=== PATIENT | female | born 1940 | race African-American/Black ===

== ENCOUNTER 2017-11-17 09:46 | Inpatient (IN) | payer BC ==
[2017-11-17] VITALS (8 sets, daily range): BP systolic 120–145; BP diastolic 55–88
[~2017-11-17] VITALS: Ht 175.3 cm; Wt 77.1 kg
[~2017-11-17 09:46] MED LIST: CIPROFLOXACIN500 M2 ORAL; NKM; TYLENOL325 MG ORAL
[2017-11-17] MEDS ORDERED: MULTIVITAMINS1 EAC2 ORAL (10:11)
[2017-11-17 10:41] LABS: APPEARANCE,URINE CLEAR; BILIRUBIN, URINE NEGATIVE (NEGATIVE); GLUCOSE, URINE (UA) NEGATIVE (NEGATIVE); KETONES,URINE 3+ (NEGATIVE); LEUKOCYTE ESTERASE ,URINE 3+ (NEGATIVE); NITRITE,URINE NEGATIVE (NEGATIVE); PH,URINE 6 (4.5-8.0); PROTEIN,URINE 1+ (NEGATIVE); UROBILINOGEN,URINE 1 MG/DL (0.0-1.0)
[2017-11-17 10:50] LABS: COLOR,URINE YELLOW
[2017-11-17 11:00] LABS: HEMATOCRIT 36.9 % (37.0-47.0); HEMOGLOBIN 11.4 G/DL (12.0-16.0); MEAN CORPUSCULAR VOLUME 88 FL (80-99); PLATELET COUNT 24 K/UL (150-450); RED BLOOD COUNT 4.18 M/UL (4.20-5.40); RED CELL DISTRIBUTION WIDTH 13.4 % (11.6-14.8); WHITE BLOOD COUNT 8.8 K/UL (4.8-10.8)
[2017-11-17 11:16] LABS: ANION GAP 10 mmol/L (5-15); BLOOD UREA NITROGEN 11 mg/dL (7-18); CALCIUM 9.4 MG/DL (8.5-10.1); CARBON DIOXIDE 27 MMOL/L (21-32); CHLORIDE 102 MMOL/L (98-107); CREATININE 0.8 MG/DL (0.55-1.30); POTASSIUM 4.3 MMOL/L (3.5-5.1); SODIUM 139 MMOL/L (136-145)
[2017-11-17 11:21] LABS: ALANINE AMINOTRANSFERASE 13 U/L (12-78); ALBUMIN 3.7 G/DL (3.4-5.0); ALBUMIN/GLOBULIN RATIO 1.1 (1.0-2.7); ALKALINE PHOSPHATASE 45 U/L (46-116); ASPARTATE AMINO TRANSFERASE 19 U/L (15-37); BILIRUBIN,TOTAL 0.5 MG/DL (0.2-1.0)
[2017-11-17] MEDS ORDERED: cefTRIAXone 1 GM in NS 55 ML IVPB ONE (12:00)
--- NOTE | 2017-11-17 12:34 | Diagnostic Imaging Report ---
Indication: Upper abdominal pain and vomiting since yesterday Technique: Spiral acquisitions obtained through the abdomen and pelvis. No oral contrast utilized, per emergency room physician request. No IV contrast utilized, per emergency room physician request.. Multiplanar reconstructions were generated. Total dose length product 723.02 mGycm. CTDIvol(s) 14.56 mGy. Dose reduction achieved using automated exposure control Comparison: None Findings: Lack of enteric contrast limits assessment of the GI tract. There are dilated fluid-filled mid to distal small bowel loops. There is nondilated terminal and distal ileum. Transition point is not definitely delineated but likely in the right or mid to lower pelvis. More proximal small bowel loops are more variably dilated. The distal esophagus and stomach, duodenum are unremarkable. The appendix is normal. No definite evidence of diverticulosis or diverticulitis. No colonic distention. No free or loculated intraperitoneal air or fluid is evident. There is diastasis of the rectus abdominis tendon without mayi herniation. Lack of IV contrast limits assessment of the solid organs. The liver demonstrates multiple cysts as well as multiple low-attenuation lesions which are too small to characterize. The gallbladder, bile ducts, pancreas, spleen, adrenals, kidneys are all grossly unremarkable. No retroperitoneal or mesenteric mass or adenopathy. No pelvic mass or adenopathy. The uterus is not definitely visualized, likely surgically absent There is mild thoracolumbar scoliotic deformity there are degenerative spondylosis changes. Linear opacities at the lung bases likely indicate atelectasis or scarring. Impression: Dilated fluid-filled mid and distal small bowel, with normal caliber distal ileum and likely abrupt transition. Findings are suspicious for small bowel obstruction. Less likely, findings could also represent an atypical manifestation of ileus or enteritis. Correlate with clinical findings, consider follow-up imaging as indicated Multiple hepatic cysts as well as multiple hepatic low-attenuation lesions which are too small to characterize, most likely benign simple cysts or bile hamartomas. No further follow-up necessary Other findings as described, including diastasis of the rectus abdominis tendon, cortical lumbar scoliosis, degenerative spondylosis, basilar pulmonary parenchymal atelectasis and/or scarring, likely surgically absent uterus Critical value findings phoned to Dr. North in the emergency room at the time of interpretation The CT scanner at [facility] is accredited by the [employer] and the scans are performed using protocols designed to limit radiation exposure to as low as reasonably achievable to attain images of sufficient resolution adequate for diagnostic evaluation.
--- NOTE | 2017-11-17 13:06 | Emergency Room Report ---
History of Present Illness General Chief Complaint: Abdominal Pain Source: Patient Present Illness HPI Patient is a 69-year-old female presented after increased epigastric pain. Patient gradual onset of symptoms. Patient reports having episodes of nausea and vomiting. She denied hematemesis or bloody stools. The patient states that she had been having increased difficulty with bowel movements. She stated she had a normal bowel movement yesterday. But had been fairly regularly constipated. She reports having increased epigastric pain. Patient states that she did not have any medical conditions and does not take any medications other than Excedrin. Allergies: Coded Allergies: No Known Allergies (Unverified , 06/20/14) Patient History Past Medical History: see triage record Reviewed Nursing Documentation: PMH: Agreed, PSxH: Agreed Nursing Documentation-PMH Past Medical History: No Stated History Review of Systems All Other Systems: negative except mentioned in HPI Physical Exam Vital Signs Date Time Temp Pulse Resp B/P (MAP) Pulse Ox O2 Delivery O2 Flow Rate FiO2 11/17/17 09:58 97.3 78 14 134/74 100 Room Air Sp02 EP Interpretation: reviewed, normal General Appearance: normal inspection, well appearing, no apparent distress, alert, GCS 15 Head: atraumatic ENT: normal ENT inspection, hearing grossly normal, normal voice Neck: normal inspection, full range of motion, supple, no bony tend Respiratory: normal inspection, lungs clear, normal breath sounds, no respiratory distress, no retraction, no wheezing Cardiovascular #1: regular rate, rhythm, no edema Gastrointestinal: non tender, soft, no guarding, no hernia, tenderness - epigastric Genitourinary: no CVA tenderness Musculoskeletal: normal inspection, back normal, normal range of motion Neurologic: normal inspection, alert, oriented x3, responsive, speech normal Psychiatric: normal inspection, judgement/insight normal, mood/affect normal Skin: normal inspection, normal color, no rash Medical Decision Making Diagnostic Impression: Primary Impression: Abdominal pain Additional Impression: Small bowel obstruction ER Course Patient presented for abdominal pain. Differential diagnoses included ischemic bowel, appendicitis, perforated viscus, abdominal aortic aneurysm, inferior myocardial infarction, viral gastroenteritis Because of complexity of patient's case laboratory testing and imaging studies were ordered. Laboratory testing was notable for markedly thrombocytopenia. Patient was given IV antibiotics for her urinary infection. CT the head and pelvis read by radiology showed Dilated fluid-filled mid and distal small bowel, with normal caliber distal ileum and likely abrupt transition. Findings are suspicious for small bowel obstruction. Less likely, findings could also represent an atypical manifestation of ileus or enteritis. Correlate with clinical findings, consider follow-up imaging as indicated Multiple hepatic cysts as well as multiple hepatic low-attenuation lesions which are too small to characterize, most likely benign simple cysts or bile hamartomas. No further follow-up necessary Other findings as described, including diastasis of the rectus abdominis tendon, cortical lumbar scoliosis, degenerative spondylosis, basilar pulmonary parenchymal atelectasis and/or scarring, likely surgically absent uterus The patient noted be thrombocytopenic. Patient was given IV acid blockers. Patient stated that she did not want any narcotic pain medication. The patient was given IV antibiotics for urinary infection. Dr. Bakari Causey was contacted for inpatient managmenet due to capitated physician. Dr. Eli was contacted for surgical consult. Labs Test 11/17/17 10:23 11/17/17 10:34 Urine Color Yellow Urine Appearance Clear Urine pH 6 (4.5-8.0) Urine Specific [place] 1.020 (1.005-1.035) Urine Protein 1+ (NEGATIVE) Urine Glucose (UA) Negative (NEGATIVE) Urine Ketones 3+ (NEGATIVE) Urine Occult Blood Negative (NEGATIVE) Urine Nitrite Negative (NEGATIVE) Urine Bilirubin Negative (NEGATIVE) Urine Urobilinogen 1 MG/DL (0.0-1.0) Urine Leukocyte Esterase 3+ (NEGATIVE) Urine RBC 0-2 /HPF (0 - 2) Urine WBC 5-10 /HPF (0 - 2) Urine Squamous Epithelial Cells Few /LPF (NONE/OCC) Urine Bacteria Few /HPF (NONE) Urine Mucus Few /LPF (NONE/OCC) White Blood Count 8.8 K/UL (4.8-10.8) Red Blood Count 4.18 M/UL (4.20-5.40) Hemoglobin 11.4 G/DL (12.0-16.0) Hematocrit 36.9 % (37.0-47.0) Mean Corpuscular Volume 88 FL (80-99) Mean Corpuscular Hemoglobin 27.3 PG (27.0-31.0) Mean Corpuscular Hemoglobin Concent 30.9 G/DL (32.0-36.0) Red Cell Distribution Width 13.4 % (11.6-14.8) Platelet Count 24 K/UL (150-450) Mean Platelet Volume 11.2 FL (6.5-10.1) Neutrophils (%) (Auto) % (45.0-75.0) Lymphocytes (%) (Auto) % (20.0-45.0) Monocytes (%) (Auto) % (1.0-10.0) Eosinophils (%) (Auto) % (0.0-3.0) Basophils (%) (Auto) % (0.0-2.0) Differential Total Cells Counted 100 Neutrophils % (Manual) 74 % (45-75) Lymphocytes % (Manual) 22 % (20-45) Monocytes % (Manual) 4 % (1-10) Eosinophils % (Manual) 0 % (0-3) Basophils % (Manual) 0 % (0-2) Band Neutrophils 0 % (0-8) Platelet Estimate Decreased Platelet Morphology Normal Hypochromasia 1+ Prothrombin Time 10.7 SEC (9.30-11.50) Prothromb Time International Ratio 1.0 (0.9-1.1) Activated Partial Thromboplast Time 23 SEC (23-33) Sodium Level 139 MMOL/L (136-145) Potassium Level 4.3 MMOL/L (3.5-5.1) Chloride Level 102 MMOL/L (98-107) Carbon Dioxide Level 27 MMOL/L (21-32) Anion Gap 10 mmol/L (5-15) Blood Urea Nitrogen 11 mg/dL (7-18) Creatinine 0.8 MG/DL (0.55-1.30) Estimat Glomerular Filtration Rate mL/min (>60) Glucose Level 130 MG/DL (74-106) Calcium Level 9.4 MG/DL (8.5-10.1) Total Bilirubin 0.5 MG/DL (0.2-1.0) Aspartate Amino Transf (AST/SGOT) 19 U/L (15-37) Alanine Aminotransferase (ALT/SGPT) 13 U/L (12-78) Alkaline Phosphatase 45 U/L (46-116) Total Protein 7.2 G/DL (6.4-8.2) Albumin 3.7 G/DL (3.4-5.0) Globulin 3.5 g/dL Albumin/Globulin Ratio 1.1 (1.0-2.7) Lipase 76 U/L (73-393) Last Vital Signs Date Time Temp Pulse Resp B/P (MAP) Pulse Ox O2 Delivery O2 Flow Rate FiO2 11/17/17 11:15 69 14 136/66 100 Room Air 11/17/17 10:16 98.1 Status: unchanged Disposition: ADMITTED INPATIENT Condition: Serious Referrals: ARLIN SIN (PCP) [place] Nov 17, 2017 13:06
[2017-11-17] MEDS ORDERED: Morphine Sulfate 2mg/ml Inj IVP ONE (13:15)
[2017-11-17] MEDS ORDERED: DiphenhydrAMINE 50mg/ml Inj IVP ONE (13:30)
[2017-11-17] MEDS ORDERED: Tubing IV Secondary IV ONE (13:31)
[2017-11-17] MEDS ORDERED: NS 500ML ONE (13:31)
[2017-11-17] MEDS: D5 1/2NS w/KCl 20mEq 1,000 ML IV SCH (14:30)
--- NOTE | 2017-11-17 14:54 | GI Initial Consult Note ---
Donna Jose N.PDarrin 11/17/17 1454: History of Present Illness General Date patient seen: Nov 17, 2017 Time patient seen: 14:53 Reason for Hospitalization: Abdominal Pain Reason for Consultation: SBO Present Illness HPI Patient is a 69-year-old female presented after increased epigastric pain. Patient gradual onset of symptoms. Patient reports having episodes of nausea and vomiting. She denied hematemesis or bloody stools. The patient states that she had been having increased difficulty with bowel movements. She stated she had a normal bowel movement yesterday. But had been fairly regularly constipated. She reports having increased epigastric pain. Patient states that she did not have any medical conditions and does not take any medications other than Excedrin. GI consulted for noted dilated SB loops on CT r/o SBO. HPI noted above. Pt seen in ED, awake A&Ox4 NAD with no active s/sx of N/V/D. Daughter at bedside. NPO with IVF's. Epigastric pain 7/10 at this time. Per patient has history of constipation, but pain became extremely severe last night. States she' has been passing gas, but has had less frequent or none after her immense pain. No BM or flatus noted since. CT AP reviewed. Pt also presents with anemia. Unknown history of endoscopy / colonoscopies. Home Meds Active Scripts Acetaminophen (Tylenol) 325 Mg Tab, 650 MG ORAL Q6H Y for For Pain, #30 TAB 0 Refills Prov:GUS RODRIGUEZ M.D. 07/21/14 Ciprofloxacin Hcl* (CIPROFLOXACIN HCL*) 500 Mg Tablet, 500 MG ORAL Q12H for 10 Days, TAB Prov:GUS RODRIGUEZ M.D. 07/21/14 Reported Medications Multivitamins* (MULTIVITAMINS*) 1 Each Tablet, 1 TAB ORAL DAILY, TAB 0 Refills 11/17/17 No Known Medications* (NKM - No Known Medications*) ., 0 ., 0 Refills 07/21/14 Med list reviewed/reconciled: Yes Allergies: Coded Allergies: No Known Allergies (Unverified , 06/20/14) Patient History History Provided By: Patient, Medical Record [facility] Narrative Past Medical History: No Stated History Social History: Denies: smoking, alcohol use, drug use, other Review of Systems All Other Systems: negative except mentioned in HPI Physical Exam Vital Signs Date Time Temp Pulse Resp B/P (MAP) Pulse Ox O2 Delivery O2 Flow Rate FiO2 11/17/17 09:58 97.3 78 14 134/74 100 Room Air Sp02 EP Interpretation: reviewed, normal Labs Laboratory Tests Test 11/17/17 10:23 11/17/17 10:34 Urine Color Yellow Urine Appearance Clear Urine pH 6 (4.5-8.0) Urine Specific [place] 1.020 (1.005-1.035) Urine Protein 1+ (NEGATIVE) H Urine Glucose (UA) Negative (NEGATIVE) Urine Ketones 3+ (NEGATIVE) H Urine Occult Blood Negative (NEGATIVE) Urine Nitrite Negative (NEGATIVE) Urine Bilirubin Negative (NEGATIVE) Urine Urobilinogen 1 MG/DL (0.0-1.0) H Urine Leukocyte Esterase 3+ (NEGATIVE) H Urine RBC 0-2 /HPF (0 - 2) Urine WBC 5-10 /HPF (0 - 2) H Urine Squamous Epithelial Cells Few /LPF (NONE/OCC) Urine Bacteria Few /HPF (NONE) Urine Mucus Few /LPF (NONE/OCC) H White Blood Count 8.8 K/UL (4.8-10.8) Red Blood Count 4.18 M/UL (4.20-5.40) L Hemoglobin 11.4 G/DL (12.0-16.0) L Hematocrit 36.9 % (37.0-47.0) L Mean Corpuscular Volume 88 FL (80-99) Mean Corpuscular Hemoglobin 27.3 PG (27.0-31.0) Mean Corpuscular Hemoglobin Concent 30.9 G/DL (32.0-36.0) L Red Cell Distribution Width 13.4 % (11.6-14.8) Platelet Count 24 K/UL (150-450) L Mean Platelet Volume 11.2 FL (6.5-10.1) H Neutrophils (%) (Auto) % (45.0-75.0) Lymphocytes (%) (Auto) % (20.0-45.0) Monocytes (%) (Auto) % (1.0-10.0) Eosinophils (%) (Auto) % (0.0-3.0) Basophils (%) (Auto) % (0.0-2.0) Differential Total Cells Counted 100 Neutrophils % (Manual) 74 % (45-75) Lymphocytes % (Manual) 22 % (20-45) Monocytes % (Manual) 4 % (1-10) Eosinophils % (Manual) 0 % (0-3) Basophils % (Manual) 0 % (0-2) Band Neutrophils 0 % (0-8) Platelet Estimate Decreased L Platelet Morphology Normal Hypochromasia 1+ Prothrombin Time 10.7 SEC (9.30-11.50) Prothromb Time International Ratio 1.0 (0.9-1.1) Activated Partial Thromboplast Time 23 SEC (23-33) Sodium Level 139 MMOL/L (136-145) Potassium Level 4.3 MMOL/L (3.5-5.1) Chloride Level 102 MMOL/L (98-107) Carbon Dioxide Level 27 MMOL/L (21-32) Anion Gap 10 mmol/L (5-15) Blood Urea Nitrogen 11 mg/dL (7-18) Creatinine 0.8 MG/DL (0.55-1.30) Estimat Glomerular Filtration Rate mL/min (>60) Glucose Level 130 MG/DL (74-106) H Calcium Level 9.4 MG/DL (8.5-10.1) Total Bilirubin 0.5 MG/DL (0.2-1.0) Aspartate Amino Transf (AST/SGOT) 19 U/L (15-37) Alanine Aminotransferase (ALT/SGPT) 13 U/L (12-78) Alkaline Phosphatase 45 U/L (46-116) L Total Protein 7.2 G/DL (6.4-8.2) Albumin 3.7 G/DL (3.4-5.0) Globulin 3.5 g/dL Albumin/Globulin Ratio 1.1 (1.0-2.7) Lipase 76 U/L (73-393) General Appearance: well appearing, no apparent distress, alert, thin Head: normocephalic EENT: PERRL/EOMI, normal ENT inspection Neck: supple Respiratory: normal breath sounds, no respiratory distress Cardiovascular: normal rate Gastrointestinal: non tender, soft, other - tympanic upper abdomen. Hypobowel sounds. Rectal: deferred Genitourinary: no CVA tenderness Musculoskeletal: normal inspection, back normal Neurologic: normal inspection, alert, oriented x3, responsive Psychiatric: normal inspection, judgement/insight normal, memory normal Skin: normal inspection, normal color, no rash, warm/dry, palpation normal, well hydrated Lymphatic: normal inspection, no adenopathy Current Medications Current Medications Medications (Trade) Dose Ordered Sig/Fanny Route PRN Reason Start Time Stop Time Status Last Admin Dose Admin Dextrose/ Electrolytes 1,000 ml @ 100 mls/hr Q10H IV 11/17/17 14:00 12/17/17 13:59 11/17/17 14:30 GI: Plan Problems: (1) Anemia (2) Dehydration (3) Small bowel obstruction (4) Abdominal pain Plan trial of non operative management, ex lap if fails. maintain NPO + IVFs bowel decompression >> NGT to LIS pain mgmt serial monitoring repeat imaging prn abx anemia work up OB stool r/o GI bleed monitor H&H, prn transfusions bowel regime ppi fu labs Discussed with Dr. Simpson. Thank you for this patient referral, we will follow. LOUIS SIMPSON 11/22/17 1359: History of Present Illness General Reason for Hospitalization: Abdominal Pain Present Illness Home Meds Active Scripts Acetaminophen (Tylenol) 325 Mg Tab, 650 MG ORAL Q6H Y for For Pain, #30 TAB 0 Refills Prov:GUS RODRIGUEZ M.D. 07/21/14 Ciprofloxacin Hcl* (CIPROFLOXACIN HCL*) 500 Mg Tablet, 500 MG ORAL Q12H for 10 Days, TAB Prov:GUS RODRIGUEZ M.D. 07/21/14 Reported Medications Multivitamins* (MULTIVITAMINS*) 1 Each Tablet, 1 TAB ORAL DAILY, TAB 0 Refills 11/17/17 No Known Medications* (NKM - No Known Medications*) ., 0 ., 0 Refills 07/21/14 Allergies: Coded Allergies: No Known Allergies (Unverified , 06/20/14) GI: Plan Plan The patient was seen and examined at bedside and all new and available data was reviewed in the patients chart. I agree with the above findings, impression and plan. (Patient seen earlier today. Signature stamp does not reflect patient encounter time.). - MD Rebeca Coleman Anh John N.P. Nov 17, 2017 14:54 LOUIS SIMPSON Nov 22, 2017 13:59
[2017-11-17] MEDS: Morphine Sulfate 2mg/ml Inj IVP PRN ×2 (17:17→20:39)
--- NOTE | 2017-11-17 17:22 | Consultation ---
History of Present Illness General Date patient seen: Nov 17, 2017 Chief Complaint: Abdominal Pain Reason for Consultation: SBO Present Illness HPI 77F otherwise healthy presented with 1 day acute onset of epigastric abdominal pain with associated nausea and emesis. states that she was well until yesterday evening when she developed cramping 8/10 epigastric pain. pain persisted and she developed nausea followed by non bloody emesis. cannot recall last flatus but believes last BM yesterday. pain without radiation. came to ED for medical evaluation. states she does not have a primary doctor and does not usually visit a physician for check ups. 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 last colonoscopy 10 years ago and believes she has polyps removed. had fibroid surgery 30+ years ago. no prior similar episodes. Allergies: Coded Allergies: No Known Allergies (Unverified , 06/20/14) Medication History Scheduled Ciprofloxacin Hcl* (Ciprofloxacin Hcl*), 500 MG ORAL Q12H Multivitamins* (Multivitamins*), 1 TAB ORAL DAILY, (Reported) No Known Medications* (NKM - No Known Medications*), 0 ., (Reported) Scheduled PRN Acetaminophen (Tylenol), 650 MG ORAL Q6H PRN for For Pain Patient History History Provided By: Patient, Family Member Healthcare decision maker Resuscitation status Advanced Directive on File Past Medical/Surgical History Past Medical/Surgical History: (1) Dizziness (2) Dizziness (3) Cystitis (4) Cystitis (5) Small bowel obstruction (6) Abdominal pain (7) Dehydration (8) Anemia Review of Systems Constitutional: Denies: no symptoms, see HPI, chills, sweats, fever, malaise, weakness, other Eye: Denies: no symptoms, see HPI, eye pain, blurred vision, tearing, double vision, nose pain, nose congestion, acuity changes, discharge, other ENT: Denies: no symptoms, see HPI, ear pain, ear discharge, nose pain, nose congestion, throat pain, throat swelling, mouth pain, hearing loss, nasal discharge, other Respiratory: Denies: no symptoms, see HPI, cough, orthopnea, shortness of breath, stridor, wheezing, LUNA, sputum, other Cardiovascular: Denies: no symptoms, see HPI, chest pain, edema, palpitations, syncope, PND, other Gastrointestinal: Reports: abdominal pain, nausea, vomiting Genitourinary: Denies: no symptoms, see HPI, discharge, dysuria, frequency, hematuria, pain, retention, incontinence, urgency, vag bleed/dc, other Musculoskeletal: Denies: no symptoms, see HPI, back pain, gout, joint pain, joint swelling, muscle pain, muscle stiffness, other Skin: Denies: no symptoms, see HPI, rash, change in color, change in hair/nails , dryness, lesions, other Psychiatric: Denies: no symptoms, see HPI, prior hx, anxiety, depressed feelings, emotional problems, SI, HI, hallucinations, other Neurological: Denies: no symptoms, see HPI, headache, numbness, paresthesia, seizure, tingling, tremors, focal weakness, syncope, dizziness, other Endocrine: Denies: no symptoms, see HPI, excessive sweating, flushing, intolerance to temperature, increased thirst, increased urine, unexplained weight loss, other Hematologic/Lymphatic: Denies: no symptoms, see HPI, anemia, blood clots, easy bleeding, easy bruising, swollen glands, diathesis, other Physical Exam General Appearance: no apparent distress, alert Lines, tubes and drains: peripheral HEENT: normocephalic, atraumatic, mucous membranes moist Neck: normal inspection Respiratory/Chest: normal breath sounds, no respiratory distress, no accessory muscle use Cardiovascular/Chest: normal peripheral pulses, normal rate, regular rhythm Abdomen: soft, no organomegaly, no mass, hypoactive bowel sounds, distended, tender, other - no rebound, no guarding, distended. Extremities: normal range of motion Skin Exam: normal pigmentation Neurologic: alert, oriented x 3, responsive Last 24 Hour Vital Signs Date Time Temp Pulse Resp B/P (MAP) Pulse Ox O2 Delivery O2 Flow Rate FiO2 11/17/17 14:48 98.1 60 13 132/55 100 Room Air 11/17/17 13:00 98.3 63 14 145/58 100 Room Air 11/17/17 11:15 69 14 136/66 100 Room Air 11/17/17 10:16 98.1 72 15 135/63 100 Room Air 11/17/17 09:58 97.3 78 14 134/74 100 Room Air Laboratory Tests Test 11/17/17 10:23 11/17/17 10:34 Urine Color Yellow Urine Appearance Clear Urine pH 6 (4.5-8.0) Urine Specific [place] 1.020 (1.005-1.035) Urine Protein 1+ (NEGATIVE) H Urine Glucose (UA) Negative (NEGATIVE) Urine Ketones 3+ (NEGATIVE) H Urine Occult Blood Negative (NEGATIVE) Urine Nitrite Negative (NEGATIVE) Urine Bilirubin Negative (NEGATIVE) Urine Urobilinogen 1 MG/DL (0.0-1.0) H Urine Leukocyte Esterase 3+ (NEGATIVE) H Urine RBC 0-2 /HPF (0 - 2) Urine WBC 5-10 /HPF (0 - 2) H Urine Squamous Epithelial Cells Few /LPF (NONE/OCC) Urine Bacteria Few /HPF (NONE) Urine Mucus Few /LPF (NONE/OCC) H White Blood Count 8.8 K/UL (4.8-10.8) Red Blood Count 4.18 M/UL (4.20-5.40) L Hemoglobin 11.4 G/DL (12.0-16.0) L Hematocrit 36.9 % (37.0-47.0) L Mean Corpuscular Volume 88 FL (80-99) Mean Corpuscular Hemoglobin 27.3 PG (27.0-31.0) Mean Corpuscular Hemoglobin Concent 30.9 G/DL (32.0-36.0) L Red Cell Distribution Width 13.4 % (11.6-14.8) Platelet Count 24 K/UL (150-450) L Mean Platelet Volume 11.2 FL (6.5-10.1) H Neutrophils (%) (Auto) % (45.0-75.0) Lymphocytes (%) (Auto) % (20.0-45.0) Monocytes (%) (Auto) % (1.0-10.0) Eosinophils (%) (Auto) % (0.0-3.0) Basophils (%) (Auto) % (0.0-2.0) Differential Total Cells Counted 100 Neutrophils % (Manual) 74 % (45-75) Lymphocytes % (Manual) 22 % (20-45) Monocytes % (Manual) 4 % (1-10) Eosinophils % (Manual) 0 % (0-3) Basophils % (Manual) 0 % (0-2) Band Neutrophils 0 % (0-8) Platelet Estimate Decreased L Platelet Morphology Normal Hypochromasia 1+ Prothrombin Time 10.7 SEC (9.30-11.50) Prothromb Time International Ratio 1.0 (0.9-1.1) Activated Partial Thromboplast Time 23 SEC (23-33) Sodium Level 139 MMOL/L (136-145) Potassium Level 4.3 MMOL/L (3.5-5.1) Chloride Level 102 MMOL/L (98-107) Carbon Dioxide Level 27 MMOL/L (21-32) Anion Gap 10 mmol/L (5-15) Blood Urea Nitrogen 11 mg/dL (7-18) Creatinine 0.8 MG/DL (0.55-1.30) Estimat Glomerular Filtration Rate mL/min (>60) Glucose Level 130 MG/DL (74-106) H Calcium Level 9.4 MG/DL (8.5-10.1) Total Bilirubin 0.5 MG/DL (0.2-1.0) Aspartate Amino Transf (AST/SGOT) 19 U/L (15-37) Alanine Aminotransferase (ALT/SGPT) 13 U/L (12-78) Alkaline Phosphatase 45 U/L (46-116) L Total Protein 7.2 G/DL (6.4-8.2) Albumin 3.7 G/DL (3.4-5.0) Globulin 3.5 g/dL Albumin/Globulin Ratio 1.1 (1.0-2.7) Lipase 76 U/L (73-393) Height (Feet): 5 Height (Inches): 9.00 Weight (Pounds): 170 Medications Current Medications Medications (Trade) Dose Ordered Sig/Fanny Route PRN Reason Start Time Stop Time Status Last Admin Dose Admin Dextrose/ Electrolytes 1,000 ml @ 100 mls/hr Q10H IV 11/17/17 14:00 12/17/17 13:59 11/17/17 14:30 Morphine Sulfate (Morphine Sulfate) 2 mg Q3H PRN IVP For Pain 11/17/17 16:30 11/24/17 16:29 Assessment/Plan Problem List: (1) Small bowel obstruction Assessment & Plan: 77F with 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 CT with transition point in pelvis. Afebrile, HD stable, labs okay, exam with distention but no acute abdomen. -Recommend admission for conservative management of SBO -NPO -IV fluids -NG tube to low intermittent suction -serial abdominal exams -AM KUB -patient and daughter state that they may want to leave AMA to go home and work with their homeopathic practitioner to resolve this. I explained to them findings and care plan. I highly advise against this and recommend her to be monitored in the hospital until return of bowel function. if does not improve or resolve with conservative management, will need surgery! ICD Codes: K56.609 - Unspecified intestinal obstruction, unspecified as to partial versus complete obstruction SNOMED: [id number] Status: stable Jose Eli Nov 17, 2017 17:22
[2017-11-18] VITALS (17 sets, daily range): BP systolic 99–134; BP diastolic 50–86
[2017-11-18] MEDS: D5 1/2NS w/KCl 20mEq 1,000 ML IV SCH ×5 (02:02→22:00)
--- NOTE | 2017-11-18 02:30 | History and Physical Report ---
DATE OF ADMISSION: 11/17/2017 HISTORY OF PRESENT ILLNESS: This is a 77-year-old female, who came to the hospital with abdominal pain, nausea, and emesis. She yesterday when she had epigastric pain. She had nausea as well as emesis. She cannot recall the last time she had a bowel movement. She came to the hospital. Approximately 10 years ago, the patient has previously had fibroid surgery. MEDICATIONS: Present medications include Cipro, multivitamins, and Tylenol. PAST MEDICAL HISTORY: Unremarkable. FAMILY HISTORY: Noncontributory. REVIEW OF SYSTEMS: Denies any headaches, hematemesis, melena, hematochezia, or weight loss. SOCIAL HISTORY: Denies alcohol or tobacco usage. PHYSICAL EXAMINATION: GENERAL: Examination reveals a 77-year-old female. HEENT: Unremarkable. LUNGS: Clear breath sounds bilaterally. CARDIAC: Normal heart sounds. ABDOMEN: Soft. EXTREMITIES: There is no edema. NEUROLOGIC: Nonfocal. LABORATORY AND DIAGNOSTIC DATA: Lab testing is unremarkable except for the platelet count of 24,000, the patient states this is longstanding. Coags are negative. Hematology as discussed above. Chemistries are normal. Urinalysis negative. Imaging studies show evidence of partial SBO on abdominal/pelvic CT. IMPRESSION: 1. Thrombocytopenia, likely chronic. 2. Partial small bowel obstruction. 3. Multiple hepatic cysts. After discussion, the patient has been seen by Surgery as well as GI. Plans noted for conservative management. 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 Consider Hematology evaluation. We will start IV fluids. NG tube to low-intermittent suction. DVT prophylaxis. Consider antibiotics, we will defer at this time. We will follow carefully. I have also discussed with the patient wanted to leave AMA, which I have advised against. Bakari Causey M.D. DR: CYNDY JOB#: [id number] CC:
--- NOTE | 2017-11-18 07:38 | Pulmonology Progress Note ---
Assessment/Plan Assessment/Plan IMPRESSION: 1. Thrombocytopenia, likely chronic. 2. Partial small bowel obstruction. 3. Multiple hepatic cysts. DISCUSSION Plans noted for conservative management. 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 Consider Hematology evaluation. Continue IV fluids. NG tube to low-intermittent suction vs NPO only. DVT prophylaxis. GI and surgery following Dr Mak Winchester/Dr. Cheli Steen will cover me till 11/22/17 Bakari Causey M.D. Subjective Interval Events: no overnight events Constitutional: Reports: no symptoms HEENT: Repors: no symptoms Respiratory: Reports: no symptoms Cardiovascular: Reports: no symptoms Gastrointestinal/Abdominal: Reports: nausea Allergies: Coded Allergies: No Known Allergies (Unverified , 06/20/14) Objective Last 24 Hour Vital Signs Date Time Temp Pulse Resp B/P (MAP) Pulse Ox O2 Delivery O2 Flow Rate FiO2 11/18/17 04:00 97.7 66 18 126/68 95 Room Air 11/18/17 00:00 97.7 59 18 134/58 99 Room Air 11/17/17 21:09 99.5 11/17/17 20:00 97.7 60 19 120/62 97 Room Air 11/17/17 18:45 99.5 64 16 145/88 100 Room Air 11/17/17 18:08 98.6 60 14 131/64 100 Room Air 11/17/17 16:00 98.9 62 14 135/56 100 Room Air 11/17/17 14:48 98.1 60 13 132/55 100 Room Air 11/17/17 13:00 98.3 63 14 145/58 100 Room Air 11/17/17 11:15 69 14 136/66 100 Room Air 11/17/17 10:16 98.1 72 15 135/63 100 Room Air 11/17/17 09:58 97.3 78 14 134/74 100 Room Air Intake and Output 11/17/17 11/18/17 19:00 07:00 Intake Total 355 ml 800 ml Output Total 0 ml Balance 355 ml 800 ml Intake Oral 0 ml IV Total 355 ml 800 ml Output Gastric Drainage Total 0 ml # Voids 1 2 General Appearance: no acute distress HEENT: normocephalic Respiratory/Chest: chest wall non-tender, lungs clear Cardiovascular: normal peripheral pulses Abdomen: soft, non tender Laboratory Tests 11/17/17 10:23: Urine Color Yellow, Urine Appearance Clear, Urine pH 6, Urine Specific [place] 1.020, Urine Protein 1+H, Urine Glucose (UA) Negative, Urine Ketones 3+H, Urine Occult Blood Negative, Urine Nitrite Negative, Urine Bilirubin Negative, Urine Urobilinogen 1H, Urine Leukocyte Esterase 3+H, Urine RBC 0-2, Urine WBC 5-10H, Urine Squamous Epithelial Cells Few, Urine Bacteria Few, Urine Mucus FewH 11/17/17 10:34: White Blood Count 8.8, Red Blood Count 4.18L, Hemoglobin 11.4L, Hematocrit 36.9L , Mean Corpuscular Volume 88, Mean Corpuscular Hemoglobin 27.3, Mean Corpuscular Hemoglobin Concent 30.9L, Red Cell Distribution Width 13.4, Platelet Count 24L, Mean Platelet Volume 11.2H, Neutrophils (%) (Auto) , Lymphocytes (%) (Auto) , Monocytes (%) (Auto) , Eosinophils (%) (Auto) , Basophils (%) (Auto) , Differential Total Cells Counted 100, Neutrophils % ( Manual) 74, Lymphocytes % (Manual) 22, Monocytes % (Manual) 4, Eosinophils % ( Manual) 0, Basophils % (Manual) 0, Band Neutrophils 0, Platelet Estimate DecreasedL, Platelet Morphology Normal, Hypochromasia 1+, Prothrombin Time 10.7 , Prothromb Time International Ratio 1.0, Activated Partial Thromboplast Time 23 , Sodium Level 139, Potassium Level 4.3, Chloride Level 102, Carbon Dioxide Level 27, Anion Gap 10, Blood Urea Nitrogen 11, Creatinine 0.8, Estimat Glomerular Filtration Rate , Glucose Level 130H, Calcium Level 9.4, Total Bilirubin 0.5, Aspartate Amino Transf (AST/SGOT) 19, Alanine Aminotransferase ( ALT/SGPT) 13, Alkaline Phosphatase 45L, Total Protein 7.2, Albumin 3.7, Globulin 3.5, Albumin/Globulin Ratio 1.1, Lipase 76 11/18/17 06:45: White Blood Count [Pending], Red Blood Count [Pending], Hemoglobin [Pending], Hematocrit [Pending], Mean Corpuscular Volume [Pending], Mean Corpuscular Hemoglobin [Pending], Mean Corpuscular Hemoglobin Concent [Pending], Red Cell Distribution Width [Pending], Platelet Count [Pending], Mean Platelet Volume [ Pending], Neutrophils (%) (Auto) [Pending], Lymphocytes (%) (Auto) [Pending], Monocytes (%) (Auto) [Pending], Eosinophils (%) (Auto) [Pending], Basophils (%) (Auto) [Pending], Prothrombin Time [Pending], Prothromb Time International Ratio [Pending], Activated Partial Thromboplast Time [Pending], Sodium Level [ Pending], Potassium Level [Pending], Chloride Level [Pending], Carbon Dioxide Level [Pending], Blood Urea Nitrogen [Pending], Creatinine [Pending], Estimat Glomerular Filtration Rate [Pending], Glucose Level [Pending], Calcium Level [ Pending], Reticulocyte Count [Pending], Iron Level [Pending], Unsaturated Iron Binding [Pending], Ferritin [Pending], Vitamin B12 Level [Pending], Folate [ Pending], Thyroid Stimulating Hormone (TSH) [Pending], Free Thyroxine [Pending] Current Medications Medications (Trade) Dose Ordered Sig/Fanny Route PRN Reason Start Time Stop Time Status Last Admin Dose Admin Dextrose/ Electrolytes 1,000 ml @ 100 mls/hr Q10H IV 11/18/17 02:00 12/18/17 01:59 11/18/17 02:02 Morphine Sulfate (Morphine Sulfate) 2 mg Q3H PRN IVP For Pain 11/17/17 16:30 11/24/17 16:29 11/17/17 20:39 Ondansetron HCl (Zofran) 4 mg Q6H PRN IVP Nausea & Vomiting 11/17/17 21:30 12/17/17 21:29 Bakari Causey MD Nov 18, 2017 07:37
[2017-11-18 07:53] LABS: HEMATOCRIT 34.8 % (37.0-47.0); HEMOGLOBIN 11.2 G/DL (12.0-16.0); MEAN CORPUSCULAR VOLUME 88 FL (80-99); PLATELET COUNT 19 K/UL (150-450); RED BLOOD COUNT 3.94 M/UL (4.20-5.40); RED CELL DISTRIBUTION WIDTH 13.2 % (11.6-14.8)
[2017-11-18 08:14] LABS: INR 1.1 (0.9-1.1)
[2017-11-18 08:29] LABS: ANION GAP 6 mmol/L (5-15); BLOOD UREA NITROGEN 8 mg/dL (7-18); CALCIUM 8.5 MG/DL (8.5-10.1); CARBON DIOXIDE 30 MMOL/L (21-32); CHLORIDE 105 MMOL/L (98-107); CREATININE 0.8 MG/DL (0.55-1.30); FERRITIN 19 NG/ML (8-388); POTASSIUM 4.4 MMOL/L (3.5-5.1); SODIUM 140 MMOL/L (136-145)
[2017-11-18 08:36] LABS: % IRON SATURATION 32 % (15-50); IRON 78 ug/dL (50-175); TOTAL IRON BINDING CAPACITY 243 ug/dL (250-450)
--- NOTE | 2017-11-18 08:47 | Diagnostic Imaging Report ---
Indication: Status post nasogastric tube placement Technique: Supine view of the upper abdomen Comparison: none Findings: There is a nasogastric tube in place, tip projected at the level of the gastric body. Visualized bowel gas is grossly unremarkable. Visualized lower thorax is unremarkable. There is thoracic scoliosis and spondylosis Impression: Satisfactory nasogastric intubation
--- NOTE | 2017-11-18 09:53 | Diagnostic Imaging Report ---
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 Colon is gas-filled, prominent, but not frankly distended. Prominent transverse bowel loops in the left mid to lower could represent prominence but not frankly dilated small bowel loops. Overall amount of bowel gas appears minimally diminished compared to the prior CT image Impression: Nonspecific minimally decreased bowel gas, as described. Note, however, that on recent CT scan distended small bowel loops were fluid-filled rather than gas-filled, limiting assessment of interim change on plain radiographs. This agrees with the preliminary interpretation provided overnight by [facility] teleradiology service. Findings were also previously discussed by phone with GI nurse practitioner Jericho
[2017-11-18] MEDS ORDERED: Fleet's Mineral Oil Enema RECTAL ONE (10:30)
--- NOTE | 2017-11-18 10:38 | General Surgery Progress Note ---
General Surgery-Progress Note Subjective Symptoms: worse, pain increased Additional Comments Non complaint with NG tube. states body feels worse and thinks it was related to NG tube so she demanded nursing staff to remove ng tube. states that lower abdominal pain is worse today. has hiccups. no flatus. no bm. is requesting enema because she believes that will make her feel better. Objective Last 24 Hour Vital Signs Date Time Temp Pulse Resp B/P (MAP) Pulse Ox O2 Delivery O2 Flow Rate FiO2 11/18/17 08:00 98.4 69 19 114/59 96 11/18/17 04:00 97.7 66 18 126/68 95 Room Air 11/18/17 00:00 97.7 59 18 134/58 99 Room Air 11/17/17 21:09 99.5 11/17/17 20:00 97.7 60 19 120/62 97 Room Air 11/17/17 18:45 99.5 64 16 145/88 100 Room Air 11/17/17 18:08 98.6 60 14 131/64 100 Room Air 11/17/17 16:00 98.9 62 14 135/56 100 Room Air 11/17/17 14:48 98.1 60 13 132/55 100 Room Air 11/17/17 13:00 98.3 63 14 145/58 100 Room Air 11/17/17 11:15 69 14 136/66 100 Room Air I&O Intake and Output 11/17/17 11/18/17 19:00 07:00 Intake Total 355 ml 800 ml Output Total 0 ml Balance 355 ml 800 ml Intake Oral 0 ml IV Total 355 ml 800 ml Output Gastric Drainage Total 0 ml # Voids 1 2 Cardiovascular: RSR Respiratory: clear Abdomen: soft, distended, tenderness Extremities: no tenderness Laboratory Tests Test 11/17/17 10:34 11/18/17 06:45 White Blood Count 8.8 K/UL (4.8-10.8) 8.0 K/UL (4.8-10.8) Red Blood Count 4.18 M/UL (4.20-5.40) L 3.94 M/UL (4.20-5.40) L Hemoglobin 11.4 G/DL (12.0-16.0) L 11.2 G/DL (12.0-16.0) L Hematocrit 36.9 % (37.0-47.0) L 34.8 % (37.0-47.0) L Mean Corpuscular Volume 88 FL (80-99) 88 FL (80-99) Mean Corpuscular Hemoglobin 27.3 PG (27.0-31.0) 28.3 PG (27.0-31.0) Mean Corpuscular Hemoglobin Concent 30.9 G/DL (32.0-36.0) L 32.1 G/DL (32.0-36.0) Red Cell Distribution Width 13.4 % (11.6-14.8) 13.2 % (11.6-14.8) Platelet Count 24 K/UL (150-450) L 19 K/UL (150-450) L Mean Platelet Volume 11.2 FL (6.5-10.1) H 10.6 FL (6.5-10.1) H Neutrophils (%) (Auto) % (45.0-75.0) % (45.0-75.0) Lymphocytes (%) (Auto) % (20.0-45.0) % (20.0-45.0) Monocytes (%) (Auto) % (1.0-10.0) % (1.0-10.0) Eosinophils (%) (Auto) % (0.0-3.0) % (0.0-3.0) Basophils (%) (Auto) % (0.0-2.0) % (0.0-2.0) Differential Total Cells Counted 100 100 Neutrophils % (Manual) 74 % (45-75) 69 % (45-75) Lymphocytes % (Manual) 22 % (20-45) 26 % (20-45) Monocytes % (Manual) 4 % (1-10) 4 % (1-10) Eosinophils % (Manual) 0 % (0-3) 0 % (0-3) Basophils % (Manual) 0 % (0-2) 1 % (0-2) Band Neutrophils 0 % (0-8) 0 % (0-8) Platelet Estimate Decreased L Decreased L Platelet Morphology Normal Normal Hypochromasia 1+ 1+ Prothrombin Time 10.7 SEC (9.30-11.50) 11.0 SEC (9.30-11.50) Prothromb Time International Ratio 1.0 (0.9-1.1) 1.1 (0.9-1.1) Activated Partial Thromboplast Time 23 SEC (23-33) 24 SEC (23-33) Sodium Level 139 MMOL/L (136-145) 140 MMOL/L (136-145) Potassium Level 4.3 MMOL/L (3.5-5.1) 4.4 MMOL/L (3.5-5.1) Chloride Level 102 MMOL/L (98-107) 105 MMOL/L (98-107) Carbon Dioxide Level 27 MMOL/L (21-32) 30 MMOL/L (21-32) Anion Gap 10 mmol/L (5-15) 6 mmol/L (5-15) Blood Urea Nitrogen 11 mg/dL (7-18) 8 mg/dL (7-18) Creatinine 0.8 MG/DL (0.55-1.30) 0.8 MG/DL (0.55-1.30) Estimat Glomerular Filtration Rate mL/min (>60) mL/min (>60) Glucose Level 130 MG/DL (74-106) H 114 MG/DL (74-106) H Calcium Level 9.4 MG/DL (8.5-10.1) 8.5 MG/DL (8.5-10.1) Total Bilirubin 0.5 MG/DL (0.2-1.0) Aspartate Amino Transf (AST/SGOT) 19 U/L (15-37) Alanine Aminotransferase (ALT/SGPT) 13 U/L (12-78) Alkaline Phosphatase 45 U/L (46-116) L Total Protein 7.2 G/DL (6.4-8.2) Albumin 3.7 G/DL (3.4-5.0) Globulin 3.5 g/dL Albumin/Globulin Ratio 1.1 (1.0-2.7) Lipase 76 U/L (73-393) Anisocytosis 1+ Reticulocyte Count Pending Iron Level 78 ug/dL (50-175) Total Iron Binding Capacity 243 ug/dL (250-450) L Percent Iron Saturation 32 % (15-50) Unsaturated Iron Binding 165 ug/dL (112-346) Ferritin 19 NG/ML (8-388) Vitamin B12 Level 1209 PG/ML (193-986) H Folate 16.0 NG/ML (8.6-58.9) Thyroid Stimulating Hormone (TSH) 2.541 uiU/mL (0.358-3.740) Free Thyroxine 1.16 NG/DL (0.76-1.46) Plan Problems: (1) Small bowel obstruction Assessment & Plan: 77F with 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 CT with transition point in pelvis. Afebrile, HD stable, labs okay, exam worse this AM -I spoke with patient and daughter at bedside. her pain is worse and exam has progressed instead of improved since last night. I explained to them that given these findings I strongly recommend surgery. she has an SBO with transition point in the pelvis on CT scan. prior history of partial hysterectomy for fibroids. likely sbo secondary to adhesions. last night when seen had mild lower abdominal discomfort but this AM is tender with guarding. Family and patient states they will not consent to surgery. They are unsure and may consider leaving AMA. I explained to them in detail with emphasis on dangers of doing so. they expressed understanding. they are requesting enema for now. i explained to them that I am okay with enema but that this will not improve SBO. discussed anatomy and condition with them in detail. Unfortunately I fear she may progress and worsen without surgery. they do not want surgery at this time even after all risks explained. Jose Eli Nov 18, 2017 10:38
--- NOTE | 2017-11-18 10:56 | GI Progress Note ---
Assessment/Plan Problems: (1) Abdominal pain ICD Codes: R10.9 - Unspecified abdominal pain SNOMED: 69211039 (2) Small bowel obstruction ICD Codes: K56.609 - Unspecified intestinal obstruction, unspecified as to partial versus complete obstruction SNOMED: 388880848 (3) Abdominal pain ICD Codes: R10.9 - Unspecified abdominal pain SNOMED: 70685505 (4) Dehydration ICD Codes: E86.0 - Dehydration SNOMED: 28334078 Status: unchanged Status Narrative Discussed with Dr. Coulter. Assessment/Plan extensive discussion with patient alongside surgery patient refusing surgical care at this time, request to speak to family regarding situation bowel decompression >> NGT to LIS, demanded staff to remove strict NPO + IVFs pain mgmt repeat imaging prn abx monitor H&H, prn transfusions ppi fu labs Subjective Subjective demanded nursing staff to remove NGT abdominal pain increased requesting enema's to have BM Objective Last 24 Hour Vital Signs Date Time Temp Pulse Resp B/P (MAP) Pulse Ox O2 Delivery O2 Flow Rate FiO2 11/18/17 08:00 98.4 69 19 114/59 96 11/18/17 04:00 97.7 66 18 126/68 95 Room Air 11/18/17 00:00 97.7 59 18 134/58 99 Room Air 11/17/17 21:09 99.5 11/17/17 20:00 97.7 60 19 120/62 97 Room Air 11/17/17 18:45 99.5 64 16 145/88 100 Room Air 11/17/17 18:08 98.6 60 14 131/64 100 Room Air 11/17/17 16:00 98.9 62 14 135/56 100 Room Air 11/17/17 14:48 98.1 60 13 132/55 100 Room Air 11/17/17 13:00 98.3 63 14 145/58 100 Room Air 11/17/17 11:15 69 14 136/66 100 Room Air Intake and Output 11/17/17 11/18/17 19:00 07:00 Intake Total 355 ml 800 ml Output Total 0 ml Balance 355 ml 800 ml Intake Oral 0 ml IV Total 355 ml 800 ml Output Gastric Drainage Total 0 ml # Voids 1 2 Laboratory Tests Test 11/18/17 06:45 White Blood Count 8.0 K/UL (4.8-10.8) Red Blood Count 3.94 M/UL (4.20-5.40) L Hemoglobin 11.2 G/DL (12.0-16.0) L Hematocrit 34.8 % (37.0-47.0) L Mean Corpuscular Volume 88 FL (80-99) Mean Corpuscular Hemoglobin 28.3 PG (27.0-31.0) Mean Corpuscular Hemoglobin Concent 32.1 G/DL (32.0-36.0) Red Cell Distribution Width 13.2 % (11.6-14.8) Platelet Count 19 K/UL (150-450) L Mean Platelet Volume 10.6 FL (6.5-10.1) H Neutrophils (%) (Auto) % (45.0-75.0) Lymphocytes (%) (Auto) % (20.0-45.0) Monocytes (%) (Auto) % (1.0-10.0) Eosinophils (%) (Auto) % (0.0-3.0) Basophils (%) (Auto) % (0.0-2.0) Differential Total Cells Counted 100 Neutrophils % (Manual) 69 % (45-75) Lymphocytes % (Manual) 26 % (20-45) Monocytes % (Manual) 4 % (1-10) Eosinophils % (Manual) 0 % (0-3) Basophils % (Manual) 1 % (0-2) Band Neutrophils 0 % (0-8) Platelet Estimate Decreased L Platelet Morphology Normal Hypochromasia 1+ Anisocytosis 1+ Reticulocyte Count 2.2 % (0.0-2.0) H Prothrombin Time 11.0 SEC (9.30-11.50) Prothromb Time International Ratio 1.1 (0.9-1.1) Activated Partial Thromboplast Time 24 SEC (23-33) Sodium Level 140 MMOL/L (136-145) Potassium Level 4.4 MMOL/L (3.5-5.1) Chloride Level 105 MMOL/L (98-107) Carbon Dioxide Level 30 MMOL/L (21-32) Anion Gap 6 mmol/L (5-15) Blood Urea Nitrogen 8 mg/dL (7-18) Creatinine 0.8 MG/DL (0.55-1.30) Estimat Glomerular Filtration Rate mL/min (>60) Glucose Level 114 MG/DL (74-106) H Calcium Level 8.5 MG/DL (8.5-10.1) Iron Level 78 ug/dL (50-175) Total Iron Binding Capacity 243 ug/dL (250-450) L Percent Iron Saturation 32 % (15-50) Unsaturated Iron Binding 165 ug/dL (112-346) Ferritin 19 NG/ML (8-388) Vitamin B12 Level 1209 PG/ML (193-986) H Folate 16.0 NG/ML (8.6-58.9) Thyroid Stimulating Hormone (TSH) 2.541 uiU/mL (0.358-3.740) Free Thyroxine 1.16 NG/DL (0.76-1.46) Height (Feet): 5 Height (Inches): 9.00 Weight (Pounds): 170 General Appearance: WD/WN, no apparent distress, alert Cardiovascular: normal rate Respiratory/Chest: normal breath sounds, no respiratory distress Abdominal Exam: distended - abdominal bloating increased, tender Extremities: normal range of motion, non-tender Donna Jose N.P. Nov 18, 2017 10:56
[2017-11-18] MEDS: Morphine Sulfate 2mg/ml Inj IVP PRN (13:25)
--- NOTE | 2017-11-18 13:26 | General Progress Note ---
Progress Note Progress Note Surgery: Patient reevaluated. Spoke with patient and daughter again. Patient examined and mattress filling machine tender in lower abdomen with rebound and guarding. exam worsening. I even brought a computer into the room and discussed / reviewed CT findings in detail. drawings were made and condition was explained in detail. images of possible complications were shown and morbidity and mortality of condition discussed in detail. I urged family to discuss care, goals, and plans amongst themselves to ensure they are informed when making any decisions. If exam continues to worsening I fear she may deteriorate. Fortunately currently afebrile, no leukocytosis, and normal lactic acid. but this can change as exam changes. slight chance of improvement without intervention but this would not be advised given progression of exam findings. family and patient currently continue to express that they do not want surgery even after all risks, benefits , and alternatives were discussed in detail on multiple occasions. Jose Eli Nov 18, 2017 13:26
--- NOTE | 2017-11-18 14:32 | Pre-Procedure Note/Attestation ---
Pre-Procedure Note/Attestation Complete Prior to Procedure Planned Procedure: not applicable Procedure Narrative: diagnostic laparoscopy, possible exploratory laparotomy, possible bowel resection, possible ostomy Indications for Procedure Pre-Operative Diagnosis: small bowel obstruction Attestation I attest that I discussed the nature of the procedure; its benefits; risks and complications; and alternatives (and the risks and benefits of such alternatives ), prior to the procedure, with the patient (or the patient's legal rental representative). I attest that, if there was a reasonable possibility of needing a blood transfusion, the patient (or the patient's legal rental representative) was given the [facility] standardized written summary, pursuant to the [place] Blood Safety Act ([place] Health and Safety Code # 1645, as amended). I attest that I re-evaluated the patient just prior to the surgery and that there has been no change in the patient's H&P, except as documented below: Jose Eli Nov 18, 2017 14:32
[2017-11-18] MEDS: LR 1000ml 1,000 ML IVLG SCH ×2 (14:55→19:31)
--- NOTE | 2017-11-18 14:55 | Anethesia Preoperative Eval ---
Anesthesia Pre-op PMH/ROS General Date of Evaluation: Nov 18, 2017 Time of Evaluation: 16:26 Anesthesiologist: Elizabeth ASA Score: ASA 4 - Emergency Mallampati Score Class I : Soft palate, uvula, fauces, pillars visible Class II: Soft palate, uvula, fauces visible Class III: Soft palate, base of uvula visible Class IV: Only hard plate visible Mallampati Classification: Class II Surgeon: Alcira Diagnosis: Acute Bowel Obstruction Surgical Procedure: Laparoscopy, Laparotomy, Bowel Resection Anesthesia History: none Family History: no anesthesia problems Allergies: Coded Allergies: No Known Allergies (Unverified , 06/20/14) Medications: see eMAR Past Medical History Gastrointestinal/Genitourinary: Reports: other - Acute Bowel Obstruction Hematology/Immune: Reports: anemia, other - Thrombocytopenia PSxH Narrative: VIKTOR Anesthesia Pre-op Phys. Exam Physician Exam Last Vital Signs Date Time Temp Pulse Resp B/P (MAP) Pulse Ox O2 Delivery O2 Flow Rate FiO2 11/18/17 13:55 98.1 11/18/17 12:00 67 20 106/52 99 11/18/17 04:00 Room Air Constitutional: NAD Neurologic: CN 2-12 intact Cardiovascular: RRR Respiratory: CTA Gastrointestinal: S/NT/ND Airway Exam Mallampati Score: Class II MO: limited ROM: limited Teeth: missing, intact Anesthesia Pre-op A/P Labs Hematology Test 11/18/17 06:45 White Blood Count 8.0 K/UL (4.8-10.8) Red Blood Count 3.94 M/UL (4.20-5.40) L Hemoglobin 11.2 G/DL (12.0-16.0) L Hematocrit 34.8 % (37.0-47.0) L Mean Corpuscular Volume 88 FL (80-99) Mean Corpuscular Hemoglobin 28.3 PG (27.0-31.0) Mean Corpuscular Hemoglobin Concent 32.1 G/DL (32.0-36.0) Red Cell Distribution Width 13.2 % (11.6-14.8) Platelet Count 19 K/UL (150-450) L Mean Platelet Volume 10.6 FL (6.5-10.1) H Neutrophils (%) (Auto) % (45.0-75.0) Lymphocytes (%) (Auto) % (20.0-45.0) Monocytes (%) (Auto) % (1.0-10.0) Eosinophils (%) (Auto) % (0.0-3.0) Basophils (%) (Auto) % (0.0-2.0) Differential Total Cells Counted 100 Neutrophils % (Manual) 69 % (45-75) Lymphocytes % (Manual) 26 % (20-45) Monocytes % (Manual) 4 % (1-10) Eosinophils % (Manual) 0 % (0-3) Basophils % (Manual) 1 % (0-2) Band Neutrophils 0 % (0-8) Platelet Estimate Decreased L Platelet Morphology Normal Hypochromasia 1+ Anisocytosis 1+ Reticulocyte Count 2.2 % (0.0-2.0) H Coagulation Test 11/18/17 06:45 Prothrombin Time 11.0 SEC (9.30-11.50) Prothromb Time International Ratio 1.1 (0.9-1.1) Activated Partial Thromboplast Time 24 SEC (23-33) Chemistry Test 11/18/17 06:45 11/18/17 10:55 Sodium Level 140 MMOL/L (136-145) Potassium Level 4.4 MMOL/L (3.5-5.1) Chloride Level 105 MMOL/L (98-107) Carbon Dioxide Level 30 MMOL/L (21-32) Anion Gap 6 mmol/L (5-15) Blood Urea Nitrogen 8 mg/dL (7-18) Creatinine 0.8 MG/DL (0.55-1.30) Estimat Glomerular Filtration Rate mL/min (>60) Glucose Level 114 MG/DL (74-106) H Calcium Level 8.5 MG/DL (8.5-10.1) Iron Level 78 ug/dL (50-175) Total Iron Binding Capacity 243 ug/dL (250-450) L Percent Iron Saturation 32 % (15-50) Unsaturated Iron Binding 165 ug/dL (112-346) Ferritin 19 NG/ML (8-388) Vitamin B12 Level 1209 PG/ML (193-986) H Folate 16.0 NG/ML (8.6-58.9) Thyroid Stimulating Hormone (TSH) 2.541 uiU/mL (0.358-3.740) Free Thyroxine 1.16 NG/DL (0.76-1.46) Lactic Acid Level 1.00 mmol/L (0.66-2.22) Risk Assessment & Plan Assessment: ASA 4E Plan: GA, BIS, GlideScope Status Change Before Surgery: No Pre-Antibiotics Dru Gram Ancef IV Given Within 1 Hr of Incision: Yes Time Given: 16:46 Simon Johnson MD Nov 18, 2017 14:55
[2017-11-18] MEDS ORDERED: Ketorolac 30mg Inj IV PRN ×2 (15:00→19:45)
[2017-11-18] MEDS ORDERED: fentaNYL 100 mcg/2 mL IV PRN (15:00)
[2017-11-18] MEDS ORDERED: oxyCODONE HCL/Acetaminophen 5/325mg ORAL PRN (15:00)
[2017-11-18] MEDS ORDERED: Norco 5mg/325mg tab ORAL PRN (15:00)
[2017-11-18] MEDS ORDERED: Atropine Inj 1mg/10ml Syr IV PRN (15:00)
[2017-11-18] MEDS ORDERED: Midazolam 2mg/2ml Inj IVP PRN (15:00)
[2017-11-18] MEDS ORDERED: DiphenhydrAMINE 50mg/ml Inj IVP PRN (15:00)
[2017-11-18] MEDS ORDERED: Hydromorphone 0.5mg/0.5ml inj IVP PRN ×2 (15:00→19:45)
[2017-11-18] MEDS ORDERED: Ketorolac 60mg Inj IV PRN (15:00)
[2017-11-18] MEDS ORDERED: Labetalol 5mg/ml 20ml vial IV PRN (15:00)
[2017-11-18] MEDS ORDERED: LORazepam Inj 2mg/ml 1ml IV PRN (15:00)
[2017-11-18] MEDS ORDERED: HYDROcodone/Acetamin 7.5/325 tab ORAL PRN (15:00)
--- NOTE | 2017-11-18 15:19 | General Progress Note ---
Progress Note Progress Note Surgery: After multiple serial exams and discussions with the family to express to them the deteriorating condition and worsening exam of Angelita Brock, patient and family have decided to proceed with surgery. Once decision was made I came to bedside and discussed operative plans with patient. surgery scheduled and operative team ready. when nursing staff went to obtain consent patients daughter was no longer present and had left. patient stated that she will not sign consent without daughter(s) present. the team and I contacted daughter who stated that she is busy at an appointment and will not return for an hour or so. I expressed to them that we have a full staff/team ready to go and that I do not recommend delaying care any further but she refused to consent and asked mother not to consent until she returns. There is no specific anticipated time for return. Staff and myself waiting for daughter to return but unsure when this will be. unfortunately as her care becomes delayed because of decisions made by fully informed family and patient I fear we her condition will continue to deteriorate. I expressed this multiple times to patient and daughter but no effort made to expedite care by family. I am very concerned about patient and her prognosis as we continue to delay care because of family. hopefully they will return soon. Jose Eli Nov 18, 2017 15:19
[2017-11-18] MEDS ORDERED: Bupivacaine 0.25% Inj 30ml INJ ONE (16:22)
[2017-11-18] MEDS ORDERED: fentaNYL 100 mcg/2 mL IV ONE (16:30)
[2017-11-18] MEDS ORDERED: Propofol 200mg/20ml IV ONE (16:30)
[2017-11-18] MEDS ORDERED: LR 1000ml ONE (16:30)
[2017-11-18] MEDS ORDERED: NS Irrig 1000ml ONE (16:30)
[2017-11-18] MEDS ORDERED: Dexamethasone 4mg/ml vial ONE (16:30)
[2017-11-18] MEDS ORDERED: Sterile Water Irrig 1000ml IRRIG ONE (16:30)
[2017-11-18] MEDS ORDERED: Midazolam 2mg/2ml Inj ONE (16:30)
[2017-11-18] MEDS ORDERED: Glycopyrrolate 0.2mg/ml 1ml Vial ONE (16:30)
[2017-11-18] MEDS ORDERED: Lidocaine 1% MPF 10mg/ml 5ml ONE (16:30)
[2017-11-18] MEDS ORDERED: Zemuron 50mg/5ml Inj IV ONE (16:30)
[2017-11-18] MEDS ORDERED: Neostigmine 1mg/ml 10ml Inj ONE (16:30)
[2017-11-18] MEDS ORDERED: Lidocaine 1% 10mg/ml/EPI 0.01mg/ml 50ml INJ ONE (16:59)
[2017-11-18] MEDS ORDERED: NS Irrig 1000ml IRRIG ONE (17:05)
--- NOTE | 2017-11-18 18:35 | Immediate Post-Op Evaluation ---
Immediate Post-Op Evalulation Immediate Post-Op Evalulation Procedure: Laparoscopic Small Bowel Resection, Mini Laparotomy Date of Evaluation: Nov 18, 2017 Time of Evaluation: 19:20 IV Fluids: 1000 LR Blood Products: 0 Estimated Blood Loss: 100 Urinary Output: 300 Blood Pressure Systolic: 113 Blood Pressure Diastolic: 60 Pulse Rate: 74 Respiratory Rate: 16 O2 Sat by Pulse Oximetry: 100 Temperature (Fahrenheit): 99.6 Pain Score (1-10): 3 Nausea: No Vomiting: No Complications 0 Patient Status: awake, reacts, patent, extubated, none Hydration Status: adequate Dru Gram Ancef IV Given Within 1 Hr of Incision: Yes Time Given: 16:46 Simon Johnson MD Nov 18, 2017 18:35
--- NOTE | 2017-11-18 19:41 | Brief Operative Note ---
Immediate Post Operative Note Operative Note Pre-op Diagnosis: small bowel obstruction Procedure: 1. diagnostic laparoscopy 2. 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
--- NOTE | 2017-11-18 21:45 | Operative Note - Dictated ---
DATE OF OPERATION: 11/18/2017 PREOPERATIVE DIAGNOSIS: Small bowel obstruction. POSTOPERATIVE DIAGNOSIS: Small bowel obstruction with small bowel ischemia gangrene and perforation. OPERATION PERFORMED: 1. Diagnostic laparoscopy. 2. Laparoscopic small bowel resection with extracorporeal anastomosis. 3. Abdominal washout. ATTENDING SURGEON: Jose Eli M.D. BAG CUTTER: None. ANESTHESIOLOGIST: Simon Johnson M.D. ANESTHESIA: General HEALTH PLAN ADVISOR. ESTIMATED BLOOD LOSS: 100 mL. IV FLUIDS: Please see anesthesia records. ANTIBIOTICS: A 2 g Ancef given 1 hour prior to cut time and intravenous Zosyn initiated given the operative findings. WOUND CLASSIFICATION: Class III. DRAINS: Nathan-Zhang drain, 19-Chilean Pillo drain. COMPLICATIONS: None. SPECIMENS: Small bowel. INDICATIONS FOR PROCEDURE: This is a 77-year-old female, who presented to the emergency department yesterday evening with complaints of abdominal pain x1 day. When seen initially, the patient had mild amount of discomfort and CT scan identifying small bowel obstruction with transition point in the pelvis. Initially, conservative management was initiated, but over the subsequent few hours, the patient developed more abdominal tenderness prompting recommendation for surgical intervention early in the morning. Initially, the patient and family were very hesitant to proceed with surgical intervention and multiple attempts were made to explain to them the gravity of the disease process she is dealing with, the need for surgery, and potential complications. Over the subsequent few hours, the patient's exam began to worsen and she developed focal lower abdominal peritonitis with rebound and guarding. At this time as the patient's family began to appreciate that her abdominal pain was worsening and her condition was deteriorating, they finally agreed to proceeding with surgery. At which time, consent was obtained from patient and family and they finally consented to surgery. Risks, benefits, and alternatives to surgical intervention were discussed in detail with the patient and the patient's family at bedside. I explained to them the possibility of beginning with diagnostic laparoscopy and then potentially converting to small bowel resection and exploratory laparotomy and potentially even an ostomy depending on findings. We discussed the patient's preoperative condition including a low platelet count, which could lead to significant bleeding problems and morbidity. they agreed to platelet transfusion as needed. We discussed significant potential morbidity of operating her and given her condition, age, and the delay, given refusal of surgical intervention by the patient's family. At this time, consent was obtained and we proceeded with surgery. OPERATIVE NOTE: The patient was taken to the operating room, placed on the operating table in supine position with bilateral arms out. All bony prominences were well padded with pads. Preoperative time-out was taken identifying the patient, procedure, operative staff, and surgical staff. SCDs were placed. Barrett catheter was inserted under standard sterile technique. General anesthesia was induced and the patient was intubated. A nasogastric tube was placed. The abdomen was prepped and draped in the standard surgical fashion. A small umbilical defect was identified and it was used to enter the abdomen. A 15 blade was used to make a small incision at the umbilicus. The abdominal fascial defect was identified and the abdomen was entered without complication under direct visualization. A Jules trocar was then inserted. The abdomen was insufflated to 12 to 15 mmHg. Laparoscope was inserted and the abdomen was inspected. In the right upper quadrant, there was a fair amount of bloody serous fluid in the right upper quadrant and left upper quadrant as well. In the pelvis, there was an area of necrotic gangrenous bowel identified. At this time, secondary trocars were placed under direct visualization beginning with a 5 mm left lower quadrant trocar and a 12 mm suprapubic trocar. The serosanguineous fluid from the abdomen was evacuated. Attention was turned to the necrotic small bowel, at which point, there was ischemic necrotic small bowel with a small perforation of bowel contents identified in the pelvis. Upon manipulating, there was significant adhesive disease and one large dense adhesive band, which was identified as the lead point. The adhesive band was dissected out and divided using laparoscopic energy device, Thunderbeat. Once this was complete, the bowel was freed around its mesentery pedicle that was causing obstruction, but unfortunately at this time, fairly necrotic gangrenous with areas that have mild perforation with spillage of bowel contents. The most distal aspect was identified approximately 20 to 25 cm away from the ileocecal valve and the area of necrosis extended for approximately 30 to 45 cm. A laparoscopic linear stapler was then used to divide the proximal and distal ends of the necrotic bowel at healthy viable tissue. The laparoscopic Thunderbeat, energy device was then used to divide the mesentery of the necrotic small bowel. Once the specimen was excised in full, it was placed in the pelvis as the remaining abdomen was inspected. At this time, two healthy ends of bowel were noted and the remaining of the abdomen inspected and no abnormalities were found. Given the size of the specimen, a larger incision was going to be necessary for removal of the large specimen. So, at this time, a decision was made to extend the suprapubic incision cephalad 3 cm for a 4 cm in size total wound and fascial defect, at which point the specimen could be removed and an extracorporeal small-bowel anastomosis could be performed and the incision was extended with electrocautery. The necrotic portion of small bowel specimen was removed and sent to pathology for review. The proximal and distal ends of the healthy viable bowel were brought out for anastomosis. A 3-0 silk stay suture was placed at the bowel edges. Following this, the enterotomies were made in the proximal and distal bowel and a linear stapler was fired and used to create a [id number] antimesenteric anastomosis. Once this was complete, the remaining enterotomy defects were closed using a linear stapling device as well. At this time, the anastomosis was checked and noted to be patent, hemostatic, and otherwise satisfactory. The anastomosis was then dropped back into the abdomen. The fascial defect was then closed using a number #1 running Prolene suture. Following this, the abdomen was insufflated again and copiously irrigated with approximately 5 to 6 liters of warm sterile normal saline. Once this was completed, the abdomen was inspected and noted to be clean without any large debris, stool, or bowel contents. The anastomosis was evaluated laparoscopic and noted to be intact and sitting on the pelvis. The remainder of the small bowel looked healthy and viable. The stomach, liver, gallbladder, and colon were noted to be healthy and viable as well. The appendix was identified and without issues. Unfortunately, spleen could not be visualized laparoscopically without significant manipulation, given the patient's low platelet count. Decision was made not to manipulate for splenic exposure. At this time, decision was made to leave a 19-Chilean Pillo drain, which was placed through the 5 mm left lower quadrant trocar. The Pillo drain was placed in the abdomen and the trocar was removed. The Pillo drain was sutured to the skin using a 2-0 nylon suture. Following this, the laparoscope was removed and the abdomen was allowed to desufflate. The Redd trocar was removed and the fascial defect at the umbilicus was closed using a #0 Vicryl suture. The wounds were then cleansed and given the contamination, decision was made to leave the 4 cm suprapubic incision open with packing and dressings and the skin of the umbilical trocar site was closed loosely using 4-0 Monocryl interrupted sutures. Wounds were cleansed. Dressings were applied. The patient was then extubated and taken to the postanesthetic care unit in stable condition. Discussion was had with the family regarding the operative findings, potential morbidity and mortality, given the disease process and surgery required. Jose Eli M.D. DR: BERNARDINO JOB#: [id number] CC: MAE
[2017-11-18] MEDS: Piperacillin/Tazobactam 3.375 GM in NS 110 ML IVPB SCH (22:37)
[2017-11-19] VITALS (11 sets, daily range): BP systolic 89–123; BP diastolic 42–55
[2017-11-19] MEDS ORDERED: Acetaminophen 650 MG SUPP RECTAL PRN (06:00)
[2017-11-19] MEDS: Piperacillin/Tazobactam 3.375 GM in NS 110 ML IVPB SCH ×3 (06:13→21:44)
[2017-11-19] MEDS ORDERED: Sodium Chloride 500ML 500 ML IV ONE ×3 (06:15→18:00)
[2017-11-19 06:39] LABS: HEMATOCRIT 32.3 % (37.0-47.0); HEMOGLOBIN 10.2 G/DL (12.0-16.0); INR 1.5 (0.9-1.1); MEAN CORPUSCULAR VOLUME 88 FL (80-99); PLATELET COUNT 33 K/UL (150-450); RED BLOOD COUNT 3.68 M/UL (4.20-5.40); RED CELL DISTRIBUTION WIDTH 13.5 % (11.6-14.8); WHITE BLOOD COUNT 7.3 K/UL (4.8-10.8)
[2017-11-19 07:18] LABS: ANION GAP 7 mmol/L (5-15); BLOOD UREA NITROGEN 11 mg/dL (7-18); CALCIUM 7.6 MG/DL (8.5-10.1); CARBON DIOXIDE 28 MMOL/L (21-32); CHLORIDE 107 MMOL/L (98-107); POTASSIUM 3.7 MMOL/L (3.5-5.1); SODIUM 142 MMOL/L (136-145)
[2017-11-19] MEDS: Pantoprazole Inj IVP SCH (08:58)
--- NOTE | 2017-11-19 09:08 | 48 Hour Post Anesthesia Eval ---
Post Anesthesia Evaluation Procedure: Laparoscopic Small Bowel Resection, Mini Laparotomy Date of Evaluation: Nov 19, 2017 Time of Evaluation: 07:05 Blood Pressure Systolic: 92 0: 50 Pulse Rate: 69 Respiratory Rate: 18 Temperature (Fahrenheit): 98.7 O2 Sat by Pulse Oximetry: 95 Airway: patent Nausea: No Vomiting: No Pain Intensity: 2 Hydration Status: adequate Cardiopulmonary Status: at baseline Mental Status/LOC: patient returned to baseline Post-Anesthesia Complications: 0 Follow-up care needed: N/A - further care as per primary team CHERRY BUNDY M.D. Nov 19, 2017 09:08
--- NOTE | 2017-11-19 09:11 | General Progress Note ---
Assessment/Plan Assessment/Plan Small bowel obstruction with small bowel necrosis gangrene and perforation. thrombocytopenia tolerated surgery alert in chair no active bleeding called hematology Subjective Gastrointestinal/Abdominal: Reports: abdominal pain Allergies: Coded Allergies: No Known Allergies (Unverified , 06/20/14) Objective Last 24 Hour Vital Signs Date Time Temp Pulse Resp B/P (MAP) Pulse Ox O2 Delivery O2 Flow Rate FiO2 11/19/17 06:51 98.7 11/19/17 06:30 92/50 11/19/17 04:00 Nasal Cannula 3.0 11/19/17 04:00 100.0 69 18 89/48 95 11/19/17 03:00 109/52 11/19/17 02:00 106/55 11/19/17 01:00 99/51 11/19/17 00:30 117/53 11/19/17 00:00 97.9 76 18 123/48 99 11/19/17 00:00 Nasal Cannula 3.0 11/18/17 23:00 100/51 11/18/17 22:30 99/53 11/18/17 22:00 110/53 11/18/17 21:30 101/50 11/18/17 21:00 109/56 11/18/17 20:28 Nasal Cannula 3.0 11/18/17 20:28 98.6 64 20 104/58 96 11/18/17 20:02 98.8 64 20 115/56 100 Nasal Cannula 3.0 11/18/17 20:00 98.8 62 20 128/57 100 Nasal Cannula 3.0 11/18/17 19:47 68 20 123/86 100 Nasal Cannula 3.0 11/18/17 19:40 69 20 121/54 100 Nasal Cannula 3.0 11/18/17 19:32 68 20 124/57 100 Simple Mask 8.0 11/18/17 19:14 66 20 114/56 100 Simple Mask 8.0 11/18/17 19:09 99.2 72 20 113/60 100 Simple Mask 8.0 11/18/17 19:08 74 16 100 11/18/17 13:55 98.1 11/18/17 12:00 98.1 67 20 106/52 99 Intake and Output 11/18/17 11/19/17 19:00 07:00 Intake Total 600 ml 2210.0 ml Output Total 860 ml Balance 600 ml 1350.0 ml IV Total 600 ml 2210.0 ml Output Urine Total 700 ml Drainage Total 60 ml Estimated Blood Loss 100 ml # Voids 3 Laboratory Tests 11/18/17 10:55: Lactic Acid Level 1.00 11/19/17 04:25: White Blood Count 7.3, Red Blood Count 3.68L, Hemoglobin 10.2L, Hematocrit 32.3L , Mean Corpuscular Volume 88, Mean Corpuscular Hemoglobin 27.8, Mean Corpuscular Hemoglobin Concent 31.6L, Red Cell Distribution Width 13.5, Platelet Count 33#L, Mean Platelet Volume 8.7, Neutrophils (%) (Auto) , Lymphocytes (%) (Auto) , Monocytes (%) (Auto) , Eosinophils (%) (Auto) , Basophils (%) (Auto) , Neutrophils % (Manual) [Pending], Lymphocytes % (Manual) [Pending], Platelet Estimate [Pending], Platelet Morphology [Pending], Prothrombin Time 15.6H, Prothromb Time International Ratio 1.5H, Activated Partial Thromboplast Time 25, Sodium Level 142, Potassium Level 3.7, Chloride Level 107, Carbon Dioxide Level 28, Anion Gap 7, Blood Urea Nitrogen 11, Creatinine 1.0, Estimat Glomerular Filtration Rate , Glucose Level 124H, Calcium Level 7.6L Height (Feet): 5 Height (Inches): 9.00 Weight (Pounds): 170 General Appearance: mild distress Cardiovascular: normal rate Respiratory/Chest: lungs clear Abdomen: decreased bowel sounds, tender DAVID SERRANO Nov 19, 2017 09:11
--- NOTE | 2017-11-19 12:02 | GI Progress Note ---
Assessment/Plan Problems: (1) Abdominal pain ICD Codes: R10.9 - Unspecified abdominal pain SNOMED: 75185665 (2) Small bowel obstruction ICD Codes: K56.609 - Unspecified intestinal obstruction, unspecified as to partial versus complete obstruction SNOMED: 603853413 (3) Abdominal pain ICD Codes: R10.9 - Unspecified abdominal pain SNOMED: 50214537 (4) Dehydration ICD Codes: E86.0 - Dehydration SNOMED: [id number] Assessment/Plan OPERATION PERFORMED: 1. Diagnostic laparoscopy. 2. Laparoscopic small bowel resection with extracorporeal anastomosis. 3. Abdominal washout. fu surgical recs strict NPO + IVFs pain mgmt abx monitor H&H, prn transfusions ppi fu labs The patient was seen and examined at bedside and all new and available data was reviewed in the patients chart. I agree with the above findings, impression and plan. (Patient seen earlier today. Signature stamp does not reflect patient encounter time.). - Mckinley Coulter MD Subjective Subjective demanded nursing staff to remove NGT abdominal pain increased requesting enema's to have BM Objective Last 24 Hour Vital Signs Date Time Temp Pulse Resp B/P (MAP) Pulse Ox O2 Delivery O2 Flow Rate FiO2 11/19/17 09:08 69 18 95 11/19/17 08:00 98.8 92 20 90/42 98 11/19/17 06:51 98.7 11/19/17 06:30 92/50 11/19/17 04:00 Nasal Cannula 3.0 11/19/17 04:00 100.0 69 18 89/48 95 11/19/17 03:00 109/52 11/19/17 02:00 106/55 11/19/17 01:00 99/51 11/19/17 00:30 117/53 11/19/17 00:00 97.9 76 18 123/48 99 11/19/17 00:00 Nasal Cannula 3.0 11/18/17 23:00 100/51 11/18/17 22:30 99/53 11/18/17 22:00 110/53 11/18/17 21:30 101/50 11/18/17 21:00 109/56 11/18/17 20:28 Nasal Cannula 3.0 11/18/17 20:28 98.6 64 20 104/58 96 11/18/17 20:02 98.8 64 20 115/56 100 Nasal Cannula 3.0 11/18/17 20:00 98.8 62 20 128/57 100 Nasal Cannula 3.0 11/18/17 19:47 68 20 123/86 100 Nasal Cannula 3.0 11/18/17 19:40 69 20 121/54 100 Nasal Cannula 3.0 11/18/17 19:32 68 20 124/57 100 Simple Mask 8.0 11/18/17 19:14 66 20 114/56 100 Simple Mask 8.0 11/18/17 19:09 99.2 72 20 113/60 100 Simple Mask 8.0 11/18/17 19:08 74 16 100 11/18/17 13:55 98.1 Intake and Output 11/18/17 11/19/17 19:00 07:00 Intake Total 600 ml 2210.0 ml Output Total 860 ml Balance 600 ml 1350.0 ml IV Total 600 ml 2210.0 ml Output Urine Total 700 ml Drainage Total 60 ml Estimated Blood Loss 100 ml # Voids 3 Laboratory Tests Test 11/19/17 04:25 White Blood Count 7.3 K/UL (4.8-10.8) Red Blood Count 3.68 M/UL (4.20-5.40) L Hemoglobin 10.2 G/DL (12.0-16.0) L Hematocrit 32.3 % (37.0-47.0) L Mean Corpuscular Volume 88 FL (80-99) Mean Corpuscular Hemoglobin 27.8 PG (27.0-31.0) Mean Corpuscular Hemoglobin Concent 31.6 G/DL (32.0-36.0) L Red Cell Distribution Width 13.5 % (11.6-14.8) Platelet Count 33 K/UL (150-450) #L Mean Platelet Volume 8.7 FL (6.5-10.1) Neutrophils (%) (Auto) % (45.0-75.0) Lymphocytes (%) (Auto) % (20.0-45.0) Monocytes (%) (Auto) % (1.0-10.0) Eosinophils (%) (Auto) % (0.0-3.0) Basophils (%) (Auto) % (0.0-2.0) Differential Total Cells Counted 100 Neutrophils % (Manual) 58 % (45-75) Lymphocytes % (Manual) 19 % (20-45) L Monocytes % (Manual) 10 % (1-10) Eosinophils % (Manual) 0 % (0-3) Basophils % (Manual) 0 % (0-2) Band Neutrophils 13 % (0-8) H Platelet Estimate Decreased L Platelet Morphology Normal Hypochromasia 1+ Prothrombin Time 15.6 SEC (9.30-11.50) H Prothromb Time International Ratio 1.5 (0.9-1.1) H Activated Partial Thromboplast Time 25 SEC (23-33) Sodium Level 142 MMOL/L (136-145) Potassium Level 3.7 MMOL/L (3.5-5.1) Chloride Level 107 MMOL/L (98-107) Carbon Dioxide Level 28 MMOL/L (21-32) Anion Gap 7 mmol/L (5-15) Blood Urea Nitrogen 11 mg/dL (7-18) Creatinine 1.0 MG/DL (0.55-1.30) Estimat Glomerular Filtration Rate mL/min (>60) Glucose Level 124 MG/DL (74-106) H Calcium Level 7.6 MG/DL (8.5-10.1) L Height (Feet): 5 Height (Inches): 9.00 Weight (Pounds): 170 Donna Jose N.PDarrin Nov 19, 2017 12:02 LOUIS COULTER Nov 22, 2017 14:14
--- NOTE | 2017-11-19 12:29 | General Progress Note ---
Progress Note Progress Note Surgery: Doing okay. awake, alert, responsive. c/o abdominal incisional tenderness. no n/v. low grade fevers. no chills. NG tube with bilious output. AYDEE drain with serosang output. montano with cloudy output. Patient and daughter refused platelets last night even after multiple long discussions about benefits. They are fairly non compliant with care which puts post op care in jeopardy. low grade fevers, HD stable, recovering abdomen soft, tender, distended, aydee intact, wounds clean with dressings. POD #1 s/p lap small bowel resection for necrotic gangrenous perforated ischemic bowel secondary to adhesion sbo. recovering -NPO -IV fluids -IV Abx -PT/OT -NG tube to suction -Montano -trend labs Jose Eli Nov 19, 2017 12:29
[2017-11-19] MEDS: Hurricaine 20% Spray ORO PRN ×4 (13:58→23:52)
[2017-11-19] MEDS: D5 1/2NS w/KCl 20mEq 1,000 ML IV SCH (14:48)
[2017-11-20] VITALS: BP 95/54
--- NOTE | 2017-11-20 02:30 | Consultation ---
DATE OF CONSULTATION: 11/19/2017 NOTE: POOR AUDIO HEMATOLOGY/ONCOLOGY CONSULTATION CONSULTING PHYSICIAN: Jose Alfredo Benavides M.D. REQUESTING PHYSICIAN: Mak Winchester M.D. REASON FOR CONSULTATION: Evaluation of severe thrombocytopenia. IDENTIFICATION DATA: Dear Dr. Winchester, The patient is a pleasant 77-year-old female with past medical history significant for thrombocytopenia, at this time she presents to [facility] with nausea, vomiting, and abdominal pain. She has been seen by Surgical Service, Dr. Jose Eli. Multiple detailed discussion with the family . The patient's family has decided to proceed with surgery. She is postop day #1 status post small bowel resection, necrotic gangrenous perforated bowel secondary to adhesions this time. Hematology Service was consulted for evaluation of the patient's leukopenia. PAST MEDICAL HISTORY: As noted above. MEDICATIONS: Reviewed. , Cipro, and Tylenol. FAMILY HISTORY: Noncontributory. REVIEW OF SYSTEMS: CONSTITUTIONAL: No fever, chills, or night sweats. SKIN: No rashes, bumps, or itching. HEENT: No headache, hearing or vision changes. BREASTS: No lumps, pain, or discharge. PULMONARY: No cough, sputum, or shortness of breath. GASTROINTESTINAL: No nausea, vomiting, or diarrhea. GENITOURINARY: No dysuria, frequency, or urgency. MUSCULOSKELETAL: No joint swelling, muscle pain, or trauma. PHYSICAL EXAMINATION: VITAL SIGNS: Reviewed. GENERAL: No distress. PULMONARY: Decreased breath sounds. CARDIOVASCULAR: Regular rate. No S3 or S4. ABDOMEN: Soft, however, laparoscopic site is noted. EXTREMITIES: No cyanosis, swelling, or edema. LABORATORY DATA: Laboratories have been reviewed. WBC , hemoglobin 10.2, hematocrit , and platelets , which appears to be chronic at this time, 19%, band neutrophils . ASSESSMENT AND RECOMMENDATIONS: 1. 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 The patient's condition is unchanged over the past four years. Review of the patient's prior labs from four years ago appears unchanged. Human immunodeficiency virus and hepatitis panel negative. We will continue to closely monitor. If it is less than 20,000, consider transfusion. 2. Anemia due to underlying chronic disease. Continue to closely monitor. 3. Small bowel obstruction, status post resection. 4. Abdominal pain due to gangrenous small bowel, status post laparotomy. 5. Coagulopathy, likely related to recent surgery. Jose Alfredo Benavides M.D. DR: DARIELA JOB#: [id number] CC:
[2017-11-20 04:00] VITALS: BP 91/49
[2017-11-20] MEDS: Hurricaine 20% Spray ORO PRN ×2 (05:05→20:08)
[2017-11-20] MEDS: D5 1/2NS w/KCl 20mEq 1,000 ML IV SCH ×3 (05:05→20:00)
[2017-11-20] MEDS: Piperacillin/Tazobactam 3.375 GM in NS 110 ML IVPB SCH ×3 (05:06→22:50)
[2017-11-20 07:02] LABS: HEMATOCRIT 33.5 % (37.0-47.0); HEMOGLOBIN 10.6 G/DL (12.0-16.0); MEAN CORPUSCULAR VOLUME 88 FL (80-99); PLATELET COUNT 62 K/UL (150-450); RED BLOOD COUNT 3.82 M/UL (4.20-5.40); RED CELL DISTRIBUTION WIDTH 13.4 % (11.6-14.8); WHITE BLOOD COUNT 9.3 K/UL (4.8-10.8)
[2017-11-20 07:07] LABS: INR 1.2 (0.9-1.1)
[2017-11-20 07:23] LABS: ALANINE AMINOTRANSFERASE 11 U/L (12-78); ALBUMIN/GLOBULIN RATIO 0.6 (1.0-2.7); ALKALINE PHOSPHATASE 43 U/L (46-116); ANION GAP 7 mmol/L (5-15); ASPARTATE AMINO TRANSFERASE 15 U/L (15-37); BILIRUBIN,TOTAL 0.6 MG/DL (0.2-1.0); BLOOD UREA NITROGEN 15 mg/dL (7-18); CALCIUM 8.2 MG/DL (8.5-10.1); CARBON DIOXIDE 26 MMOL/L (21-32); CHLORIDE 108 MMOL/L (98-107); CREATININE 1.1 MG/DL (0.55-1.30); POTASSIUM 3.4 MMOL/L (3.5-5.1); SODIUM 141 MMOL/L (136-145)
[2017-11-20 08:27] VITALS: BP 94/51
[2017-11-20] MEDS: Pantoprazole Inj IVP SCH (09:07)
[2017-11-20] MEDS: HYDROmorphone 1mg/ml Carpuject IVP PRN ×3 (10:44→23:36)
--- NOTE | 2017-11-20 10:46 | General Progress Note ---
Progress Note Progress Note Surgery: doing okay. abd pain. no n/v/f/c. ng tube with bilious output. aydee drain with serosang output. no flatus or BM yet. afebrile, HD stable, labs okay. plt improved. abd soft, mild distention, tender mainly incisional, wounds c/d/i. montano output improved. -high risk for morbidity and mortality given operative findings. fortunately doing okay now without any post operative issues thus far. -NPO, IV fluids -NG tube to suction -AYDEE drain care and management -Keep montano in for accurate urine output monitoring -cont IV abx given spillage of enteric contents -needs to ambulate and be out of bed -will keep close eye on her. Jose Eli Nov 20, 2017 10:46
[2017-11-20 11:18] VITALS: BP 101/50
[2017-11-20 15:51] VITALS: BP 94/55
--- NOTE | 2017-11-20 19:37 | Pulmonology Progress Note ---
Assessment/Plan Assessment/Plan Small bowel obstruction with small bowel necrosis sp SB resection gangrene and perforation. thrombocytopenia tolerated surgery wound care pain control monitor vs closely NPO and NGt IV abx no active bleeding check am labs Subjective Constitutional: Reports: no symptoms HEENT: Repors: no symptoms Respiratory: Reports: no symptoms Cardiovascular: Reports: no symptoms Gastrointestinal/Abdominal: Reports: other - pain Genitourinary: Reports: no symptoms Neurologic: Reports: no symptoms Psychiatric: Reports: no symptoms Skin: Reports: no symptoms Allergies: Coded Allergies: No Known Allergies (Unverified , 06/20/14) Subjective NPO minimal NG output pain present but controlled no cp nv or bleeding no fever not getting oob positive uop Objective Last 24 Hour Vital Signs Date Time Temp Pulse Resp B/P (MAP) Pulse Ox O2 Delivery O2 Flow Rate FiO2 11/20/17 15:51 98.4 94 20 94/55 95 11/20/17 11:18 98.4 91 20 101/50 97 11/20/17 11:14 98.6 11/20/17 08:27 98.6 94 20 94/51 96 11/20/17 04:00 97.9 90 20 91/49 98 Nasal Cannula 3.0 11/20/17 00:00 98.1 95 18 95/54 97 Nasal Cannula 3.0 11/19/17 20:51 91 91/46 Nasal Cannula 3.0 11/19/17 20:24 98.1 94 20 89/43 98 Room Air Intake and Output 11/19/17 11/20/17 19:00 07:00 Intake Total 127.5 ml 637.5 ml Output Total 280 ml 500 ml Balance -152.5 ml 137.5 ml IV Total 127.5 ml 637.5 ml Output Urine Total 200 ml 450 ml Drainage Total 80 ml 50 ml General Appearance: WD/WN HEENT: atraumatic, anicteric Respiratory/Chest: lungs clear, normal breath sounds Cardiovascular: normal rate, regular rhythm Abdomen: hypoactive bowel sounds, distended, tender Extremities: no cyanosis Skin: no rash Neurologic/Psychiatric: oriented x 3 Lymphatic: no neck adenopathy Musculoskeletal: normal muscle bulk Laboratory Tests 11/20/17 05:05: White Blood Count 9.3, Red Blood Count 3.82L, Hemoglobin 10.6L, Hematocrit 33.5L , Mean Corpuscular Volume 88, Mean Corpuscular Hemoglobin 27.8, Mean Corpuscular Hemoglobin Concent 31.7L, Red Cell Distribution Width 13.4, Platelet Count 62#L, Mean Platelet Volume 9.1, Neutrophils (%) (Auto) , Lymphocytes (%) (Auto) , Monocytes (%) (Auto) , Eosinophils (%) (Auto) , Basophils (%) (Auto) , Differential Total Cells Counted 100, Neutrophils % ( Manual) 74, Lymphocytes % (Manual) 13L, Monocytes % (Manual) 7, Eosinophils % ( Manual) 1, Basophils % (Manual) 1, Band Neutrophils 4, Platelet Estimate DecreasedL, Platelet Morphology Normal, Hypochromasia 1+, Prothrombin Time 12.5H , Prothromb Time International Ratio 1.2H, Activated Partial Thromboplast Time 32, Sodium Level 141, Potassium Level 3.4L, Chloride Level 108H, Carbon Dioxide Level 26, Anion Gap 7, Blood Urea Nitrogen 15, Creatinine 1.1, Estimat Glomerular Filtration Rate , Glucose Level 93, Calcium Level 8.2L, Total Bilirubin 0.6, Aspartate Amino Transf (AST/SGOT) 15, Alanine Aminotransferase ( ALT/SGPT) 11L, Alkaline Phosphatase 43L, Total Protein 5.5L, Albumin 2.0L, Globulin 3.5, Albumin/Globulin Ratio 0.6L Current Medications Medications (Trade) Dose Ordered Sig/Fanny Route PRN Reason Start Time Stop Time Status Last Admin Dose Admin Acetaminophen (Tylenol) 650 mg Q6H PRN RECTAL Mild Pain/Temp > 100.5 11/19/17 06:00 12/19/17 05:59 11/19/17 06:21 Benzocaine (Hurricaine) 1 sprays Q2H PRN ELI THROAT IRRITATION 11/19/17 10:45 12/19/17 10:44 11/20/17 05:05 Dextrose/ Electrolytes 1,000 ml @ 125 mls/hr Q8H IV 11/20/17 12:00 12/20/17 11:59 Hydromorphone HCl (Dilaudid) 0.5 mg Q3H PRN IVP Pain Score 1-3 11/18/17 19:45 11/25/17 19:44 11/19/17 20:28 Hydromorphone HCl (Dilaudid) 1 mg Q3H PRN IVP pain score 4-6 11/18/17 19:45 11/25/17 19:44 11/20/17 10:44 Hydromorphone HCl (Dilaudid) 2 mg Q3H PRN IVP pain score 7-10 11/18/17 19:45 11/25/17 19:44 Ondansetron HCl (Zofran) 4 mg Q6H PRN IVP Nausea & Vomiting 11/17/17 21:30 12/17/17 21:29 Pantoprazole (Protonix) 40 mg DAILY IVP 11/19/17 09:00 12/19/17 08:59 11/20/17 09:07 Piperacillin Sod/ Tazobactam Sod 3.375 gm/Sodium Chloride 110 ml @ 27.5 mls/hr EVERY 8 HOURS IVPB 11/18/17 22:00 11/23/17 21:59 11/20/17 18:07 HILARY GAMEZ DO Nov 20, 2017 19:37
[2017-11-20 20:19] VITALS: BP 95/56
--- NOTE | 2017-11-20 21:24 | General Progress Note ---
Assessment/Plan Assessment/Plan 1. 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 --> The patient's condition is unchanged over the past four years. --> Review of the patient's prior labs from four years ago appears unchanged. --> Human immunodeficiency virus and hepatitis panel negative. --> We will continue to closely monitor. --> If it is less than 20,000, consider transfusion. --> Improved. 2. Anemia due to underlying chronic disease. --> Continue to closely monitor. 3. Small bowel obstruction, status post resection. 4. Abdominal pain due to gangrenous small bowel, status post laparotomy. --> Followup by GI services. 5. Coagulopathy, likely related to recent surgery. Subjective Date patient seen: Nov 20, 2017 Constitutional: Denies: no symptoms, chills, diaphoresis, fever, malaise, weakness, other HEENT: Denies: no symptoms, eye pain, blurred vision, tearing, double vision, ear pain, ear discharge, nose pain, nose congestion, throat pain, throat swelling, mouth pain, mouth swelling, other Cardiovascular: Denies: no symptoms, chest pain, edema, irregular heart rate, lightheadedness, palpitations, syncope, other Respiratory: Denies: no symptoms, cough, orthopnea, shortness of breath, SOB with excertion, SOB at rest, sputum, stridor, wheezing, other Gastrointestinal/Abdominal: Denies: no symptoms, abdomen distended, abdominal pain, black stools, tarry stools, blood in stool, constipated, diarrhea, difficulty swallowing, nausea, poor appetite, poor fluid intake, rectal bleeding , vomiting, other Hematologic/Lymphatic: Reports: other - thrombocytopenia Allergies: Coded Allergies: No Known Allergies (Unverified , 06/20/14) Subjective Platelet count improved. No fever or chills. Objective Last 24 Hour Vital Signs Date Time Temp Pulse Resp B/P (MAP) Pulse Ox O2 Delivery O2 Flow Rate FiO2 11/20/17 20:19 98.2 97 20 95/56 94 11/20/17 15:51 98.4 94 20 94/55 95 11/20/17 11:18 98.4 91 20 101/50 97 11/20/17 11:14 98.6 11/20/17 08:27 98.6 94 20 94/51 96 11/20/17 04:00 97.9 90 20 91/49 98 Nasal Cannula 3.0 11/20/17 00:00 98.1 95 18 95/54 97 Nasal Cannula 3.0 Intake and Output 11/19/17 11/20/17 19:00 07:00 Intake Total 127.5 ml 637.5 ml Output Total 280 ml 500 ml Balance -152.5 ml 137.5 ml IV Total 127.5 ml 637.5 ml Output Urine Total 200 ml 450 ml Drainage Total 80 ml 50 ml Laboratory Tests 11/20/17 05:05: White Blood Count 9.3, Red Blood Count 3.82L, Hemoglobin 10.6L, Hematocrit 33.5L , Mean Corpuscular Volume 88, Mean Corpuscular Hemoglobin 27.8, Mean Corpuscular Hemoglobin Concent 31.7L, Red Cell Distribution Width 13.4, Platelet Count 62#L, Mean Platelet Volume 9.1, Neutrophils (%) (Auto) , Lymphocytes (%) (Auto) , Monocytes (%) (Auto) , Eosinophils (%) (Auto) , Basophils (%) (Auto) , Differential Total Cells Counted 100, Neutrophils % ( Manual) 74, Lymphocytes % (Manual) 13L, Monocytes % (Manual) 7, Eosinophils % ( Manual) 1, Basophils % (Manual) 1, Band Neutrophils 4, Platelet Estimate DecreasedL, Platelet Morphology Normal, Hypochromasia 1+, Prothrombin Time 12.5H , Prothromb Time International Ratio 1.2H, Activated Partial Thromboplast Time 32, Sodium Level 141, Potassium Level 3.4L, Chloride Level 108H, Carbon Dioxide Level 26, Anion Gap 7, Blood Urea Nitrogen 15, Creatinine 1.1, Estimat Glomerular Filtration Rate , Glucose Level 93, Calcium Level 8.2L, Total Bilirubin 0.6, Aspartate Amino Transf (AST/SGOT) 15, Alanine Aminotransferase ( ALT/SGPT) 11L, Alkaline Phosphatase 43L, Total Protein 5.5L, Albumin 2.0L, Globulin 3.5, Albumin/Globulin Ratio 0.6L Height (Feet): 5 Height (Inches): 9.00 Weight (Pounds): 170 General Appearance: no apparent distress Cardiovascular: normal rate Respiratory/Chest: decreased breath sounds Abdomen: soft Jose Alfredo Benavides Nov 20, 2017 21:24
[2017-11-21] VITALS (7 sets, daily range): BP systolic 91–97; BP diastolic 50–58
[2017-11-21] MEDS: D5 1/2NS w/KCl 20mEq 1,000 ML IV SCH ×3 (04:42→20:23)
[2017-11-21] MEDS: Piperacillin/Tazobactam 3.375 GM in NS 110 ML IVPB SCH ×3 (06:00→21:49)
[2017-11-21 07:19] LABS: HEMATOCRIT 29.7 % (37.0-47.0); HEMOGLOBIN 9.3 G/DL (12.0-16.0); MEAN CORPUSCULAR VOLUME 89 FL (80-99); PLATELET COUNT 88 K/UL (150-450); RED BLOOD COUNT 3.35 M/UL (4.20-5.40); RED CELL DISTRIBUTION WIDTH 13.5 % (11.6-14.8); WHITE BLOOD COUNT 8.8 K/UL (4.8-10.8)
[2017-11-21 07:25] LABS: ALANINE AMINOTRANSFERASE 11 U/L (12-78); ALBUMIN 1.8 G/DL (3.4-5.0); ALBUMIN/GLOBULIN RATIO 0.5 (1.0-2.7); ALKALINE PHOSPHATASE 55 U/L (46-116); ANION GAP 5 mmol/L (5-15); ASPARTATE AMINO TRANSFERASE 12 U/L (15-37); BILIRUBIN,TOTAL 0.5 MG/DL (0.2-1.0); BLOOD UREA NITROGEN 15 mg/dL (7-18); CALCIUM 8.2 MG/DL (8.5-10.1); CARBON DIOXIDE 28 MMOL/L (21-32); CHLORIDE 110 MMOL/L (98-107); PHOSPHORUS 2.7 MG/DL (2.5-4.9); POTASSIUM 3.9 MMOL/L (3.5-5.1); SODIUM 143 MMOL/L (136-145)
[2017-11-21] MEDS: Pantoprazole Inj IVP SCH (08:27)
[2017-11-21] MEDS: HYDROmorphone 1mg/ml Carpuject IVP PRN ×2 (09:57→21:50)
--- NOTE | 2017-11-21 14:24 | General Progress Note ---
Progress Note Progress Note Surgery: doing well. no acute events. pain improved. no n/v/f/c. comfortable. hungry. no flatus or BM yet afebrile, HD stable, labs reviewed abdomen soft, less tenderness, mild distention, mild tympany. incision c/d/i. aydee drain with serosang output montano with clear urine NG tube without output -d/c ng tube -d/c montano -must ambulate and be out of bed -cont npo with IV fluids -cont Abx awaiting return of bowel function Jose Eli Nov 21, 2017 14:24
[2017-11-21] MEDS ORDERED: Tubing IV Secondary IV ONE (16:27)
--- NOTE | 2017-11-21 20:45 | Pulmonology Progress Note ---
Assessment/Plan Assessment/Plan Small bowel obstruction with small bowel necrosis sp SB resection gangrene and perforation. thrombocytopenia tolerated surgery wound care pain control monitor vs closely NPOPO per surgeru IV abx no active bleeding check am labs Subjective Constitutional: Reports: no symptoms HEENT: Repors: no symptoms Respiratory: Reports: no symptoms Cardiovascular: Reports: no symptoms Gastrointestinal/Abdominal: Reports: other - tender Genitourinary: Reports: no symptoms Psychiatric: Reports: no symptoms Allergies: Coded Allergies: No Known Allergies (Unverified , 06/20/14) Subjective NPO NGT removed pain present but controlled no cp nv or bleeding no fever not getting oob positive uop Objective Last 24 Hour Vital Signs Date Time Temp Pulse Resp B/P (MAP) Pulse Ox O2 Delivery O2 Flow Rate FiO2 11/21/17 16:00 98.1 92 18 96/51 91 Room Air 11/21/17 12:01 99.0 93 18 97/58 93 Room Air 11/21/17 10:29 99.0 11/21/17 08:05 99.0 96 18 91/55 95 Room Air 11/21/17 04:00 98.0 93 20 96/57 95 Room Air 11/21/17 00:07 98.2 94 20 93/54 94 Intake and Output 11/20/17 11/21/17 19:00 07:00 Intake Total 127.5 ml Output Total 800 ml Balance -672.5 ml IV Total 127.5 ml Output Urine Total 800 ml General Appearance: WD/WN Respiratory/Chest: lungs clear Cardiovascular: normal rate, regular rhythm Abdomen: hypoactive bowel sounds, distended, tender Extremities: no cyanosis Neurologic/Psychiatric: alert, oriented x 3 Musculoskeletal: no effusion Laboratory Tests 11/21/17 05:10: White Blood Count 8.8, Red Blood Count 3.35L, Hemoglobin 9.3L, Hematocrit 29.7L , Mean Corpuscular Volume 89, Mean Corpuscular Hemoglobin 27.6, Mean Corpuscular Hemoglobin Concent 31.1L, Red Cell Distribution Width 13.5, Platelet Count 88L, Mean Platelet Volume 7.3, Neutrophils (%) (Auto) , Lymphocytes (%) (Auto) , Monocytes (%) (Auto) , Eosinophils (%) (Auto) , Basophils (%) (Auto) , Differential Total Cells Counted 100, Neutrophils % ( Manual) 84H, Lymphocytes % (Manual) 12L, Monocytes % (Manual) 2, Eosinophils % ( Manual) 2, Basophils % (Manual) 0, Band Neutrophils 0, Platelet Estimate DecreasedL, Platelet Morphology Normal, Hypochromasia 1+, Sodium Level 143, Potassium Level 3.9, Chloride Level 110H, Carbon Dioxide Level 28, Anion Gap 5, Blood Urea Nitrogen 15, Creatinine 1.0, Estimat Glomerular Filtration Rate , Glucose Level 124H, Calcium Level 8.2L, Phosphorus Level 2.7, Magnesium Level 1.8, Total Bilirubin 0.5, Aspartate Amino Transf (AST/SGOT) 12L, Alanine Aminotransferase (ALT/SGPT) 11L, Alkaline Phosphatase 55, Total Protein 5.3L, Albumin 1.8L, Globulin 3.5, Albumin/Globulin Ratio 0.5L Current Medications Medications (Trade) Dose Ordered Sig/Fanny Route PRN Reason Start Time Stop Time Status Last Admin Dose Admin Acetaminophen (Tylenol) 650 mg Q6H PRN RECTAL Mild Pain/Temp > 100.5 11/19/17 06:00 12/19/17 05:59 11/19/17 06:21 Benzocaine (Hurricaine) 1 sprays Q2H PRN ELI THROAT IRRITATION 11/19/17 10:45 12/19/17 10:44 11/20/17 20:08 Dextrose/ Electrolytes 1,000 ml @ 125 mls/hr Q8H IV 11/20/17 12:00 12/20/17 11:59 11/21/17 20:23 Hydromorphone HCl (Dilaudid) 0.5 mg Q3H PRN IVP Pain Score 1-3 11/18/17 19:45 11/25/17 19:44 11/19/17 20:28 Hydromorphone HCl (Dilaudid) 1 mg Q3H PRN IVP pain score 4-6 11/18/17 19:45 11/25/17 19:44 11/21/17 09:57 Hydromorphone HCl (Dilaudid) 2 mg Q3H PRN IVP pain score 7-10 11/18/17 19:45 11/25/17 19:44 Ondansetron HCl (Zofran) 4 mg Q6H PRN IVP Nausea & Vomiting 11/17/17 21:30 12/17/17 21:29 Pantoprazole (Protonix) 40 mg DAILY IVP 11/19/17 09:00 12/19/17 08:59 11/21/17 08:27 Piperacillin Sod/ Tazobactam Sod 3.375 gm/Sodium Chloride 110 ml @ 27.5 mls/hr EVERY 8 HOURS IVPB 11/18/17 22:00 11/23/17 21:59 11/21/17 13:35 HILARY GAMEZ DO Nov 21, 2017 20:45
--- NOTE | 2017-11-21 21:23 | General Progress Note ---
Assessment/Plan Status: stable Assessment/Plan 1. 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 --> Has been improving --> The patient's condition is unchanged over the past four years. --> Review of the patient's prior labs from four years ago appears unchanged. --> Human immunodeficiency virus and hepatitis panel negative. --> We will continue to closely monitor. --> If it is less than 20,000, consider transfusion. 2. Anemia due to underlying chronic disease. --> Continue to closely monitor. --> Blood transfusion not required today 3. Small bowel obstruction, status post resection. 4. Abdominal pain due to gangrenous small bowel, status post laparotomy. --> Followup by GI services. 5. Coagulopathy, likely related to recent surgery. Subjective Date patient seen: Nov 21, 2017 Constitutional: Denies: no symptoms, chills, diaphoresis, fever, malaise, weakness, other HEENT: Denies: no symptoms, eye pain, blurred vision, tearing, double vision, ear pain, ear discharge, nose pain, nose congestion, throat pain, throat swelling, mouth pain, mouth swelling, other Cardiovascular: Denies: no symptoms, chest pain, edema, irregular heart rate, lightheadedness, palpitations, syncope, other Respiratory: Denies: no symptoms, cough, orthopnea, shortness of breath, SOB with excertion, SOB at rest, sputum, stridor, wheezing, other Gastrointestinal/Abdominal: Denies: no symptoms, abdomen distended, abdominal pain, black stools, tarry stools, blood in stool, constipated, diarrhea, difficulty swallowing, nausea, poor appetite, poor fluid intake, rectal bleeding , vomiting, other Genitourinary: Denies: no symptoms, burning, discharge, frequency, flank pain, hematuria, incontinence, pain, urgency, other Allergies: Coded Allergies: No Known Allergies (Unverified , 06/20/14) Subjective No new events overnight. NAD. Platelets improving Objective Last 24 Hour Vital Signs Date Time Temp Pulse Resp B/P (MAP) Pulse Ox O2 Delivery O2 Flow Rate FiO2 11/21/17 20:55 98.1 90 18 93/50 96 11/21/17 16:00 98.1 92 18 96/51 91 Room Air 11/21/17 12:01 99.0 93 18 97/58 93 Room Air 11/21/17 10:29 99.0 11/21/17 08:05 99.0 96 18 91/55 95 Room Air 11/21/17 04:00 98.0 93 20 96/57 95 Room Air 11/21/17 00:07 98.2 94 20 93/54 94 Intake and Output 11/20/17 11/21/17 19:00 07:00 Intake Total 127.5 ml Output Total 800 ml Balance -672.5 ml IV Total 127.5 ml Output Urine Total 800 ml Laboratory Tests 11/21/17 05:10: White Blood Count 8.8, Red Blood Count 3.35L, Hemoglobin 9.3L, Hematocrit 29.7L , Mean Corpuscular Volume 89, Mean Corpuscular Hemoglobin 27.6, Mean Corpuscular Hemoglobin Concent 31.1L, Red Cell Distribution Width 13.5, Platelet Count 88L, Mean Platelet Volume 7.3, Neutrophils (%) (Auto) , Lymphocytes (%) (Auto) , Monocytes (%) (Auto) , Eosinophils (%) (Auto) , Basophils (%) (Auto) , Differential Total Cells Counted 100, Neutrophils % ( Manual) 84H, Lymphocytes % (Manual) 12L, Monocytes % (Manual) 2, Eosinophils % ( Manual) 2, Basophils % (Manual) 0, Band Neutrophils 0, Platelet Estimate DecreasedL, Platelet Morphology Normal, Hypochromasia 1+, Sodium Level 143, Potassium Level 3.9, Chloride Level 110H, Carbon Dioxide Level 28, Anion Gap 5, Blood Urea Nitrogen 15, Creatinine 1.0, Estimat Glomerular Filtration Rate , Glucose Level 124H, Calcium Level 8.2L, Phosphorus Level 2.7, Magnesium Level 1.8, Total Bilirubin 0.5, Aspartate Amino Transf (AST/SGOT) 12L, Alanine Aminotransferase (ALT/SGPT) 11L, Alkaline Phosphatase 55, Total Protein 5.3L, Albumin 1.8L, Globulin 3.5, Albumin/Globulin Ratio 0.5L Height (Feet): 5 Height (Inches): 9.00 Weight (Pounds): 170 General Appearance: no apparent distress Respiratory/Chest: decreased breath sounds Abdomen: non tender, soft Skin: warm/dry Jose Alfredo Benavides Nov 21, 2017 21:22
[2017-11-22 04:11] VITALS: BP 98/58
[2017-11-22] MEDS: D5 1/2NS w/KCl 20mEq 1,000 ML IV SCH ×3 (04:14→23:20)
[2017-11-22] MEDS: Piperacillin/Tazobactam 3.375 GM in NS 110 ML IVPB SCH ×3 (06:14→23:45)
[2017-11-22 08:00] VITALS: BP 100/56
[2017-11-22 08:15] LABS: BASOPHILS % (AUTO) 0.6 % (0.0-2.0); EOSINOPHILS % (AUTO) 2.3 % (0.0-3.0); HEMATOCRIT 27.9 % (37.0-47.0); HEMOGLOBIN 8.8 G/DL (12.0-16.0); LYMPHOCYTES % (AUTO) 14.1 % (20.0-45.0); MEAN CORPUSCULAR VOLUME 89 FL (80-99); MONOCYTES % (AUTO) 9.1 % (1.0-10.0); PLATELET COUNT 116 K/UL (150-450); RED BLOOD COUNT 3.12 M/UL (4.20-5.40); RED CELL DISTRIBUTION WIDTH 13.6 % (11.6-14.8); WHITE BLOOD COUNT 7.2 K/UL (4.8-10.8)
[2017-11-22 08:53] LABS: ALANINE AMINOTRANSFERASE 12 U/L (12-78); ALBUMIN 1.8 G/DL (3.4-5.0); ALBUMIN/GLOBULIN RATIO 0.5 (1.0-2.7); ALKALINE PHOSPHATASE 51 U/L (46-116); ANION GAP 7 mmol/L (5-15); ASPARTATE AMINO TRANSFERASE 10 U/L (15-37); BILIRUBIN,TOTAL 0.4 MG/DL (0.2-1.0); BLOOD UREA NITROGEN 13 mg/dL (7-18); CALCIUM 8.3 MG/DL (8.5-10.1); CARBON DIOXIDE 27 MMOL/L (21-32); CHLORIDE 110 MMOL/L (98-107); CREATININE 0.9 MG/DL (0.55-1.30); POTASSIUM 4.2 MMOL/L (3.5-5.1); SODIUM 144 MMOL/L (136-145)
[2017-11-22] MEDS: Pantoprazole Inj IVP SCH (09:21)
--- NOTE | 2017-11-22 09:41 | General Progress Note ---
Progress Note Progress Note Surgery: doing much better. pain improved. no n/v/f/c. ambulatory. comfortable. montano out. ng tube out. feels much better now. passing lots of flatus. no BM yet. afebrile, HD stable, exam benign. aydee drain with serous output abd soft, nt/nd, bs+, wound c/d/i. improving. bowel function returning. -start clear liquids -decrease IV fluids -ambulate and oob -aydee drain care Jose Eli Nov 22, 2017 09:40
--- NOTE | 2017-11-22 10:34 | GI Progress Note ---
Assessment/Plan Problems: (1) Abdominal pain ICD Codes: R10.9 - Unspecified abdominal pain SNOMED: 77697740 (2) Small bowel obstruction ICD Codes: K56.609 - Unspecified intestinal obstruction, unspecified as to partial versus complete obstruction SNOMED: 844120702 (3) Abdominal pain ICD Codes: R10.9 - Unspecified abdominal pain SNOMED: 21329397 (4) Dehydration ICD Codes: E86.0 - Dehydration SNOMED: 35803959 Status: progressing Status Narrative Discussed with Dr. Coulter. Assessment/Plan OPERATION PERFORMED: 1. Diagnostic laparoscopy. 2. Laparoscopic small bowel resection with extracorporeal anastomosis. 3. Abdominal washout. fu surgical recs -start clear liquids -decrease IV fluids -ambulate and oob -aydee drain care pain mgmt abx monitor H&H, prn transfusions ppi fu labs Subjective Subjective abdominal pain improving Objective Last 24 Hour Vital Signs Date Time Temp Pulse Resp B/P (MAP) Pulse Ox O2 Delivery O2 Flow Rate FiO2 11/22/17 08:00 97.9 77 20 100/56 92 11/22/17 04:11 98.1 88 18 98/58 96 11/21/17 23:57 98.2 91 18 94/53 96 11/21/17 20:55 98.1 90 18 93/50 96 11/21/17 16:00 98.1 92 18 96/51 91 Room Air 11/21/17 12:01 99.0 93 18 97/58 93 Room Air Intake and Output 11/21/17 11/22/17 19:00 07:00 Intake Total 1207.5 ml 125 ml Output Total 400 ml Balance 1207.5 ml -275 ml IV Total 1207.5 ml 125 ml Output Urine Total 400 ml # Voids 1 Laboratory Tests Test 11/22/17 07:00 White Blood Count 7.2 K/UL (4.8-10.8) Red Blood Count 3.12 M/UL (4.20-5.40) L Hemoglobin 8.8 G/DL (12.0-16.0) L Hematocrit 27.9 % (37.0-47.0) L Mean Corpuscular Volume 89 FL (80-99) Mean Corpuscular Hemoglobin 28.1 PG (27.0-31.0) Mean Corpuscular Hemoglobin Concent 31.4 G/DL (32.0-36.0) L Red Cell Distribution Width 13.6 % (11.6-14.8) Platelet Count 116 K/UL (150-450) L Mean Platelet Volume 7.3 FL (6.5-10.1) Neutrophils (%) (Auto) 74.0 % (45.0-75.0) Lymphocytes (%) (Auto) 14.1 % (20.0-45.0) L Monocytes (%) (Auto) 9.1 % (1.0-10.0) Eosinophils (%) (Auto) 2.3 % (0.0-3.0) Basophils (%) (Auto) 0.6 % (0.0-2.0) Sodium Level 144 MMOL/L (136-145) Potassium Level 4.2 MMOL/L (3.5-5.1) Chloride Level 110 MMOL/L (98-107) H Carbon Dioxide Level 27 MMOL/L (21-32) Anion Gap 7 mmol/L (5-15) Blood Urea Nitrogen 13 mg/dL (7-18) Creatinine 0.9 MG/DL (0.55-1.30) Estimat Glomerular Filtration Rate mL/min (>60) Glucose Level 119 MG/DL (74-106) H Calcium Level 8.3 MG/DL (8.5-10.1) L Total Bilirubin 0.4 MG/DL (0.2-1.0) Aspartate Amino Transf (AST/SGOT) 10 U/L (15-37) L Alanine Aminotransferase (ALT/SGPT) 12 U/L (12-78) Alkaline Phosphatase 51 U/L (46-116) Total Protein 5.6 G/DL (6.4-8.2) L Albumin 1.8 G/DL (3.4-5.0) L Globulin 3.8 g/dL Albumin/Globulin Ratio 0.5 (1.0-2.7) L Height (Feet): 5 Height (Inches): 9.00 Weight (Pounds): 170 General Appearance: WD/WN, no apparent distress, alert, thin Cardiovascular: normal rate Respiratory/Chest: normal breath sounds, no respiratory distress Abdominal Exam: normal bowel sounds, non tender, soft, incision site, other - AYDEE drain Extremities: normal range of motion, non-tender Donna Jose N.P. Nov 22, 2017 10:34
--- NOTE | 2017-11-22 10:47 | Pulmonology Progress Note ---
Assessment/Plan Assessment/Plan Assessment/Plan Small bowel obstruction with small bowel necrosis sp SB resection gangrene and perforation. thrombocytopenia Start clear liquids NGT removed pain present but controlled Bakari Causey M.D. Subjective Interval Events: Doing better. NG and Barrett out. Constitutional: Reports: no symptoms HEENT: Repors: no symptoms Respiratory: Reports: no symptoms Cardiovascular: Reports: no symptoms Gastrointestinal/Abdominal: Reports: no symptoms Genitourinary: Reports: no symptoms Allergies: Coded Allergies: No Known Allergies (Unverified , 06/20/14) Objective Last 24 Hour Vital Signs Date Time Temp Pulse Resp B/P (MAP) Pulse Ox O2 Delivery O2 Flow Rate FiO2 11/22/17 08:00 97.9 77 20 100/56 92 11/22/17 04:11 98.1 88 18 98/58 96 11/21/17 23:57 98.2 91 18 94/53 96 11/21/17 20:55 98.1 90 18 93/50 96 11/21/17 16:00 98.1 92 18 96/51 91 Room Air 11/21/17 12:01 99.0 93 18 97/58 93 Room Air Intake and Output 11/21/17 11/22/17 19:00 07:00 Intake Total 1207.5 ml 125 ml Output Total 400 ml Balance 1207.5 ml -275 ml IV Total 1207.5 ml 125 ml Output Urine Total 400 ml # Voids 1 General Appearance: no acute distress HEENT: normocephalic Respiratory/Chest: chest wall non-tender, lungs clear Cardiovascular: normal peripheral pulses, normal rate Abdomen: hypoactive bowel sounds Laboratory Tests 11/22/17 07:00: White Blood Count 7.2, Red Blood Count 3.12L, Hemoglobin 8.8L, Hematocrit 27.9L , Mean Corpuscular Volume 89, Mean Corpuscular Hemoglobin 28.1, Mean Corpuscular Hemoglobin Concent 31.4L, Red Cell Distribution Width 13.6, Platelet Count 116L, Mean Platelet Volume 7.3, Neutrophils (%) (Auto) 74.0, Lymphocytes (%) (Auto) 14.1L, Monocytes (%) (Auto) 9.1, Eosinophils (%) (Auto) 2.3, Basophils (%) (Auto) 0.6, Sodium Level 144, Potassium Level 4.2, Chloride Level 110H, Carbon Dioxide Level 27, Anion Gap 7, Blood Urea Nitrogen 13, Creatinine 0.9, Estimat Glomerular Filtration Rate , Glucose Level 119H, Calcium Level 8.3L, Total Bilirubin 0.4, Aspartate Amino Transf (AST/SGOT) 10L, Alanine Aminotransferase (ALT/SGPT) 12, Alkaline Phosphatase 51, Total Protein 5.6L, Albumin 1.8L, Globulin 3.8, Albumin/Globulin Ratio 0.5L Current Medications Medications (Trade) Dose Ordered Sig/Fanny Route PRN Reason Start Time Stop Time Status Last Admin Dose Admin Acetaminophen (Tylenol) 650 mg Q6H PRN RECTAL Mild Pain/Temp > 100.5 11/19/17 06:00 12/19/17 05:59 11/19/17 06:21 Benzocaine (Hurricaine) 1 sprays Q2H PRN ELI THROAT IRRITATION 11/19/17 10:45 12/19/17 10:44 11/20/17 20:08 Dextrose/ Electrolytes 1,000 ml @ 75 mls/hr [id number] IV 11/22/17 10:00 12/22/17 09:59 Heparin Sodium (Porcine) (Heparin 5000 units/ml) 5,000 units EVERY 12 HOURS SUBQ 11/22/17 10:00 12/22/17 09:59 Hydromorphone HCl (Dilaudid) 0.5 mg Q3H PRN IVP Pain Score 1-3 11/18/17 19:45 11/25/17 19:44 11/19/17 20:28 Hydromorphone HCl (Dilaudid) 1 mg Q3H PRN IVP pain score 4-6 11/18/17 19:45 11/25/17 19:44 11/21/17 21:50 Hydromorphone HCl (Dilaudid) 2 mg Q3H PRN IVP pain score 7-10 11/18/17 19:45 11/25/17 19:44 Ondansetron HCl (Zofran) 4 mg Q6H PRN IVP Nausea & Vomiting 11/17/17 21:30 12/17/17 21:29 Pantoprazole (Protonix) 40 mg DAILY IVP 11/19/17 09:00 12/19/17 08:59 11/22/17 09:21 Piperacillin Sod/ Tazobactam Sod 3.375 gm/Sodium Chloride 110 ml @ 27.5 mls/hr EVERY 8 HOURS IVPB 11/18/17 22:00 11/23/17 21:59 11/22/17 06:14 Bakari Causey MD Nov 22, 2017 10:47
[2017-11-22] MEDS: Heparin 5000 units/ml inj SUBQ SCH ×2 (11:42→20:47)
[2017-11-22 12:00] VITALS: BP 114/70
[2017-11-22] MEDS: HYDROmorphone 1mg/ml Carpuject IVP PRN ×2 (13:31→23:49)
[2017-11-22 16:00] VITALS: BP 97/57
[2017-11-22 20:00] VITALS: BP 104/62
--- NOTE | 2017-11-22 23:42 | General Progress Note ---
Assessment/Plan Status: stable Assessment/Plan 1. 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 --> Has improved. --> The patient's condition is unchanged over the past four years. --> Review of the patient's prior labs from four years ago appears unchanged. --> Human immunodeficiency virus and hepatitis panel negative. --> We will continue to closely monitor. --> If it is less than 20,000, consider transfusion. 2. Anemia due to underlying chronic disease. --> Continue to closely monitor. --> Blood transfusion not required today --> Hemoglobin has been stable >7 3. Small bowel obstruction, status post resection. 4. Abdominal pain due to gangrenous small bowel, status post laparotomy. --> Followup by GI services. --> Improving. 5. Coagulopathy, likely related to recent surgery. Subjective Date patient seen: Nov 22, 2017 Constitutional: Denies: no symptoms, chills, diaphoresis, fever, malaise, weakness, other HEENT: Denies: no symptoms, eye pain, blurred vision, tearing, double vision, ear pain, ear discharge, nose pain, nose congestion, throat pain, throat swelling, mouth pain, mouth swelling, other Cardiovascular: Denies: no symptoms, chest pain, edema, irregular heart rate, lightheadedness, palpitations, syncope, other Respiratory: Denies: no symptoms, cough, orthopnea, shortness of breath, SOB with excertion, SOB at rest, sputum, stridor, wheezing, other Gastrointestinal/Abdominal: Denies: no symptoms, abdomen distended, abdominal pain, black stools, tarry stools, blood in stool, constipated, diarrhea, difficulty swallowing, nausea, poor appetite, poor fluid intake, rectal bleeding , vomiting, other Genitourinary: Denies: no symptoms, burning, discharge, frequency, flank pain, hematuria, incontinence, pain, urgency, other Hematologic/Lymphatic: Reports: anemia Allergies: Coded Allergies: No Known Allergies (Unverified , 06/20/14) Subjective Abd pain improved. Platelets continue to improve. Objective Last 24 Hour Vital Signs Date Time Temp Pulse Resp B/P (MAP) Pulse Ox O2 Delivery O2 Flow Rate FiO2 11/22/17 20:00 98.2 69 20 104/62 95 11/22/17 16:00 98.1 75 20 97/57 97 11/22/17 12:00 98.1 77 20 114/70 98 11/22/17 08:00 97.9 77 20 100/56 92 11/22/17 04:11 98.1 88 18 98/58 96 11/21/17 23:57 98.2 91 18 94/53 96 Intake and Output 11/21/17 11/22/17 19:00 07:00 Intake Total 1207.5 ml 125 ml Output Total 400 ml Balance 1207.5 ml -275 ml IV Total 1207.5 ml 125 ml Output Urine Total 400 ml # Voids 1 Laboratory Tests 11/22/17 07:00: White Blood Count 7.2, Red Blood Count 3.12L, Hemoglobin 8.8L, Hematocrit 27.9L , Mean Corpuscular Volume 89, Mean Corpuscular Hemoglobin 28.1, Mean Corpuscular Hemoglobin Concent 31.4L, Red Cell Distribution Width 13.6, Platelet Count 116L, Mean Platelet Volume 7.3, Neutrophils (%) (Auto) 74.0, Lymphocytes (%) (Auto) 14.1L, Monocytes (%) (Auto) 9.1, Eosinophils (%) (Auto) 2.3, Basophils (%) (Auto) 0.6, Sodium Level 144, Potassium Level 4.2, Chloride Level 110H, Carbon Dioxide Level 27, Anion Gap 7, Blood Urea Nitrogen 13, Creatinine 0.9, Estimat Glomerular Filtration Rate , Glucose Level 119H, Calcium Level 8.3L, Total Bilirubin 0.4, Aspartate Amino Transf (AST/SGOT) 10L, Alanine Aminotransferase (ALT/SGPT) 12, Alkaline Phosphatase 51, Total Protein 5.6L, Albumin 1.8L, Globulin 3.8, Albumin/Globulin Ratio 0.5L Height (Feet): 5 Height (Inches): 9.00 Weight (Pounds): 170 General Appearance: no apparent distress Cardiovascular: normal rate, regular rhythm Respiratory/Chest: lungs clear Jose Alfredo Benavides Nov 22, 2017 23:42
[2017-11-23] VITALS (7 sets, daily range): BP systolic 97–125; BP diastolic 54–73
[2017-11-23] MEDS: Piperacillin/Tazobactam 3.375 GM in NS 110 ML IVPB SCH ×2 (05:09→14:00)
[2017-11-23 07:34] LABS: BASOPHILS % (AUTO) 0.7 % (0.0-2.0); EOSINOPHILS % (AUTO) 2.2 % (0.0-3.0); HEMATOCRIT 26.6 % (37.0-47.0); HEMOGLOBIN 8.4 G/DL (12.0-16.0); LYMPHOCYTES % (AUTO) 16.7 % (20.0-45.0); MEAN CORPUSCULAR VOLUME 89 FL (80-99); MONOCYTES % (AUTO) 10.9 % (1.0-10.0); NEUTROPHILS % (AUTO) 69.6 % (45.0-75.0); PLATELET COUNT 160 K/UL (150-450); RED CELL DISTRIBUTION WIDTH 13.6 % (11.6-14.8); WHITE BLOOD COUNT 7.6 K/UL (4.8-10.8)
[2017-11-23 08:20] LABS: ALANINE AMINOTRANSFERASE 11 U/L (12-78); ALBUMIN 1.8 G/DL (3.4-5.0); ALBUMIN/GLOBULIN RATIO 0.5 (1.0-2.7); ALKALINE PHOSPHATASE 48 U/L (46-116); ANION GAP 7 mmol/L (5-15); ASPARTATE AMINO TRANSFERASE 11 U/L (15-37); BLOOD UREA NITROGEN 10 mg/dL (7-18); CALCIUM 8.4 MG/DL (8.5-10.1); CARBON DIOXIDE 26 MMOL/L (21-32); CHLORIDE 109 MMOL/L (98-107); CREATININE 0.8 MG/DL (0.55-1.30); POTASSIUM 3.8 MMOL/L (3.5-5.1); SODIUM 142 MMOL/L (136-145)
[2017-11-23 08:45] LABS: BILIRUBIN,TOTAL 0.4 MG/DL (0.2-1.0)
[2017-11-23] MEDS: Pantoprazole Inj IVP SCH (08:46)
[2017-11-23] MEDS: Heparin 5000 units/ml inj SUBQ SCH ×2 (08:46→21:00)
--- NOTE | 2017-11-23 10:08 | Pulmonology Progress Note ---
Assessment/Plan Assessment/Plan Assessment/Plan Small bowel obstruction with small bowel necrosis sp SB resection gangrene and perforation. thrombocytopenia On clear liquids NGT removed pain present but controlled Await further diet advancement... defer to surgery Bakari Causey M.D. Subjective Interval Events: Passing flatus; no BM Constitutional: Reports: no symptoms HEENT: Repors: no symptoms Respiratory: Reports: no symptoms Cardiovascular: Reports: no symptoms Gastrointestinal/Abdominal: Reports: no symptoms Genitourinary: Reports: no symptoms Allergies: Coded Allergies: No Known Allergies (Unverified , 06/20/14) Objective Last 24 Hour Vital Signs Date Time Temp Pulse Resp B/P (MAP) Pulse Ox O2 Delivery O2 Flow Rate FiO2 11/23/17 08:09 97.8 82 20 122/73 96 11/23/17 04:00 98.2 71 18 97/54 95 11/23/17 00:00 98.6 79 18 101/59 96 11/23/17 00:00 Room Air 11/22/17 20:00 98.2 69 20 104/62 95 11/22/17 16:00 98.1 75 20 97/57 97 11/22/17 12:00 98.1 77 20 114/70 98 Intake and Output 11/22/17 11/23/17 19:00 07:00 Intake Total 240 ml 662.5 ml Output Total 100 ml Balance 240 ml 562.5 ml Intake Oral 240 ml IV Total 662.5 ml Drainage Total 100 ml # Voids 3 General Appearance: no acute distress HEENT: normocephalic Respiratory/Chest: chest wall non-tender, lungs clear Cardiovascular: normal peripheral pulses, normal rate Abdomen: normal bowel sounds, no organomegaly Laboratory Tests 11/23/17 05:30: White Blood Count 7.6, Red Blood Count 3.00L, Hemoglobin 8.4L, Hematocrit 26.6L , Mean Corpuscular Volume 89, Mean Corpuscular Hemoglobin 28.0, Mean Corpuscular Hemoglobin Concent 31.6L, Red Cell Distribution Width 13.6, Platelet Count 160, Mean Platelet Volume 7.0, Neutrophils (%) (Auto) 69.6, Lymphocytes (%) (Auto) 16.7L, Monocytes (%) (Auto) 10.9H, Eosinophils (%) (Auto ) 2.2, Basophils (%) (Auto) 0.7, Sodium Level 142, Potassium Level 3.8, Chloride Level 109H, Carbon Dioxide Level 26, Anion Gap 7, Blood Urea Nitrogen 10, Creatinine 0.8, Estimat Glomerular Filtration Rate , Glucose Level 94, Calcium Level 8.4L, Total Bilirubin 0.4, Aspartate Amino Transf (AST/SGOT) 11L, Alanine Aminotransferase (ALT/SGPT) 11L, Alkaline Phosphatase 48, Total Protein 5.4L, Albumin 1.8L, Globulin 3.6, Albumin/Globulin Ratio 0.5L Current Medications Medications (Trade) Dose Ordered Sig/Fanny Route PRN Reason Start Time Stop Time Status Last Admin Dose Admin Acetaminophen (Tylenol) 650 mg Q6H PRN RECTAL Mild Pain/Temp > 100.5 11/19/17 06:00 12/19/17 05:59 11/19/17 06:21 Benzocaine (Hurricaine) 1 sprays Q2H PRN ELI THROAT IRRITATION 11/19/17 10:45 12/19/17 10:44 11/20/17 20:08 Dextrose/ Electrolytes 1,000 ml @ 75 mls/hr [id number] IV 11/22/17 10:00 12/22/17 09:59 11/22/17 11:38 Heparin Sodium (Porcine) (Heparin 5000 units/ml) 5,000 units EVERY 12 HOURS SUBQ 11/22/17 10:00 12/22/17 09:59 11/22/17 11:42 Hydromorphone HCl (Dilaudid) 0.5 mg Q3H PRN IVP Pain Score 1-3 11/18/17 19:45 11/25/17 19:44 11/19/17 20:28 Hydromorphone HCl (Dilaudid) 1 mg Q3H PRN IVP pain score 4-6 11/18/17 19:45 11/25/17 19:44 11/22/17 23:49 Hydromorphone HCl (Dilaudid) 2 mg Q3H PRN IVP pain score 7-10 11/18/17 19:45 11/25/17 19:44 Ondansetron HCl (Zofran) 4 mg Q6H PRN IVP Nausea & Vomiting 11/17/17 21:30 12/17/17 21:29 Pantoprazole (Protonix) 40 mg DAILY IVP 11/19/17 09:00 12/19/17 08:59 11/23/17 08:46 Piperacillin Sod/ Tazobactam Sod 3.375 gm/Sodium Chloride 110 ml @ 27.5 mls/hr EVERY 8 HOURS IVPB 11/18/17 22:00 11/23/17 21:59 11/23/17 05:09 Bakari Causey MD Nov 23, 2017 10:08
[2017-11-23] MEDS: HYDROmorphone 1mg/ml Carpuject IVP PRN (10:43)
[2017-11-23] MEDS ORDERED: Docusate 100mg cap ORAL PRN (14:30)
--- NOTE | 2017-11-23 14:30 | General Progress Note ---
Progress Note Progress Note Surgery: doing okay. comfortable. pain improving. ambulatory. tolerating clears. + flatus but no BM yet afebrile, HD stable, labs reviewed abdomen soft, tenderness improved, wound c/d/i, drain serous, more distended today. -will need to keep close eye on her. may develop ileus -keep on clears -ambulate and oob. Jose Eli Nov 23, 2017 14:30
[2017-11-23] MEDS: D5 1/2NS w/KCl 20mEq 1,000 ML IV SCH (14:50)
--- NOTE | 2017-11-23 15:21 | GI Progress Note ---
Assessment/Plan Problems: (1) Abdominal pain ICD Codes: R10.9 - Unspecified abdominal pain SNOMED: 11432723 (2) Small bowel obstruction ICD Codes: K56.609 - Unspecified intestinal obstruction, unspecified as to partial versus complete obstruction SNOMED: 400332297 (3) Abdominal pain ICD Codes: R10.9 - Unspecified abdominal pain SNOMED: 04328769 (4) Dehydration ICD Codes: E86.0 - Dehydration SNOMED: 58034922 Status: progressing, unchanged Status Narrative Discussed with Dr. Coulter. Assessment/Plan OPERATION PERFORMED: 1. Diagnostic laparoscopy. 2. Laparoscopic small bowel resection with extracorporeal anastomosis. 3. Abdominal washout. fu surgical recs -start clear liquids -decrease IV fluids -ambulate and oob -aydee drain care pain mgmt abx monitor H&H, prn transfusions ppi fu labs Subjective Subjective abdominal pain still present abdominal distention Objective Last 24 Hour Vital Signs Date Time Temp Pulse Resp B/P (MAP) Pulse Ox O2 Delivery O2 Flow Rate FiO2 11/23/17 11:45 98.4 85 20 125/69 96 11/23/17 08:09 97.8 82 20 122/73 96 11/23/17 04:00 98.2 71 18 97/54 95 11/23/17 00:00 98.6 79 18 101/59 96 11/23/17 00:00 Room Air 11/22/17 20:00 98.2 69 20 104/62 95 11/22/17 16:00 98.1 75 20 97/57 97 Intake and Output 11/22/17 11/23/17 19:00 07:00 Intake Total 240 ml 737.5 ml Output Total 100 ml Balance 240 ml 637.5 ml Intake Oral 240 ml IV Total 737.5 ml Drainage Total 100 ml # Voids 3 Laboratory Tests Test 11/23/17 05:30 White Blood Count 7.6 K/UL (4.8-10.8) Red Blood Count 3.00 M/UL (4.20-5.40) L Hemoglobin 8.4 G/DL (12.0-16.0) L Hematocrit 26.6 % (37.0-47.0) L Mean Corpuscular Volume 89 FL (80-99) Mean Corpuscular Hemoglobin 28.0 PG (27.0-31.0) Mean Corpuscular Hemoglobin Concent 31.6 G/DL (32.0-36.0) L Red Cell Distribution Width 13.6 % (11.6-14.8) Platelet Count 160 K/UL (150-450) Mean Platelet Volume 7.0 FL (6.5-10.1) Neutrophils (%) (Auto) 69.6 % (45.0-75.0) Lymphocytes (%) (Auto) 16.7 % (20.0-45.0) L Monocytes (%) (Auto) 10.9 % (1.0-10.0) H Eosinophils (%) (Auto) 2.2 % (0.0-3.0) Basophils (%) (Auto) 0.7 % (0.0-2.0) Sodium Level 142 MMOL/L (136-145) Potassium Level 3.8 MMOL/L (3.5-5.1) Chloride Level 109 MMOL/L (98-107) H Carbon Dioxide Level 26 MMOL/L (21-32) Anion Gap 7 mmol/L (5-15) Blood Urea Nitrogen 10 mg/dL (7-18) Creatinine 0.8 MG/DL (0.55-1.30) Estimat Glomerular Filtration Rate mL/min (>60) Glucose Level 94 MG/DL (74-106) Calcium Level 8.4 MG/DL (8.5-10.1) L Total Bilirubin 0.4 MG/DL (0.2-1.0) Aspartate Amino Transf (AST/SGOT) 11 U/L (15-37) L Alanine Aminotransferase (ALT/SGPT) 11 U/L (12-78) L Alkaline Phosphatase 48 U/L (46-116) Total Protein 5.4 G/DL (6.4-8.2) L Albumin 1.8 G/DL (3.4-5.0) L Globulin 3.6 g/dL Albumin/Globulin Ratio 0.5 (1.0-2.7) L Height (Feet): 5 Height (Inches): 9.00 Weight (Pounds): 170 General Appearance: WD/WN, no apparent distress, alert Cardiovascular: normal rate Respiratory/Chest: normal breath sounds, no respiratory distress Abdominal Exam: normal bowel sounds, non tender, soft Extremities: normal range of motion, non-tender Donna Jose N.P. Nov 23, 2017 15:21
--- NOTE | 2017-11-23 22:30 | General Progress Note ---
Assessment/Plan Status: stable Assessment/Plan #. Anemia due to underlying chronic disease. --> Continue to closely monitor. --> Blood transfusion not required today --> Hemoglobin has been stable >7 #. 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 --> Has resolved. --> The patient's condition is unchanged over the past four years. --> Review of the patient's prior labs from four years ago appears unchanged. --> Human immunodeficiency virus and hepatitis panel negative. --> We will continue to closely monitor. --> If it is less than 20,000, consider transfusion. #. Small bowel obstruction, status post resection. #. Abdominal pain due to gangrenous small bowel, status post laparotomy. --> Followup by GI services. --> Improving on pain control. #. Coagulopathy, likely related to recent surgery. Subjective Date patient seen: Nov 23, 2017 Constitutional: Denies: no symptoms, chills, diaphoresis, fever, malaise, weakness, other HEENT: Denies: no symptoms, eye pain, blurred vision, tearing, double vision, ear pain, ear discharge, nose pain, nose congestion, throat pain, throat swelling, mouth pain, mouth swelling, other Cardiovascular: Denies: no symptoms, chest pain, edema, irregular heart rate, lightheadedness, palpitations, syncope, other Respiratory: Denies: no symptoms, cough, orthopnea, shortness of breath, SOB with excertion, SOB at rest, sputum, stridor, wheezing, other Gastrointestinal/Abdominal: Denies: no symptoms, abdomen distended, abdominal pain, black stools, tarry stools, blood in stool, constipated, diarrhea, difficulty swallowing, nausea, poor appetite, poor fluid intake, rectal bleeding , vomiting, other Hematologic/Lymphatic: Reports: anemia Allergies: Coded Allergies: No Known Allergies (Unverified , 06/20/14) Subjective Patient feeling better. Resting in bed. No fever. Objective Last 24 Hour Vital Signs Date Time Temp Pulse Resp B/P (MAP) Pulse Ox O2 Delivery O2 Flow Rate FiO2 11/23/17 19:17 98.1 84 20 124/62 98 Room Air 11/23/17 16:00 98.1 69 17 110/60 97 11/23/17 11:45 98.4 85 20 125/69 96 11/23/17 08:09 97.8 82 20 122/73 96 11/23/17 04:00 98.2 71 18 97/54 95 11/23/17 00:00 98.6 79 18 101/59 96 11/23/17 00:00 Room Air Intake and Output 11/22/17 11/23/17 19:00 07:00 Intake Total 240 ml 737.5 ml Output Total 100 ml Balance 240 ml 637.5 ml Intake Oral 240 ml IV Total 737.5 ml Drainage Total 100 ml # Voids 3 Laboratory Tests 11/23/17 05:30: White Blood Count 7.6, Red Blood Count 3.00L, Hemoglobin 8.4L, Hematocrit 26.6L , Mean Corpuscular Volume 89, Mean Corpuscular Hemoglobin 28.0, Mean Corpuscular Hemoglobin Concent 31.6L, Red Cell Distribution Width 13.6, Platelet Count 160, Mean Platelet Volume 7.0, Neutrophils (%) (Auto) 69.6, Lymphocytes (%) (Auto) 16.7L, Monocytes (%) (Auto) 10.9H, Eosinophils (%) (Auto ) 2.2, Basophils (%) (Auto) 0.7, Sodium Level 142, Potassium Level 3.8, Chloride Level 109H, Carbon Dioxide Level 26, Anion Gap 7, Blood Urea Nitrogen 10, Creatinine 0.8, Estimat Glomerular Filtration Rate , Glucose Level 94, Calcium Level 8.4L, Total Bilirubin 0.4, Aspartate Amino Transf (AST/SGOT) 11L, Alanine Aminotransferase (ALT/SGPT) 11L, Alkaline Phosphatase 48, Total Protein 5.4L, Albumin 1.8L, Globulin 3.6, Albumin/Globulin Ratio 0.5L Height (Feet): 5 Height (Inches): 9.00 Weight (Pounds): 170 General Appearance: no apparent distress Cardiovascular: normal rate Respiratory/Chest: decreased breath sounds Skin: warm/dry Jose Alfredo Benavides Nov 23, 2017 22:30
[2017-11-24] MEDS: D5 1/2NS w/KCl 20mEq 1,000 ML IV SCH (02:05)
[2017-11-24 04:00] VITALS: BP 126/66
[2017-11-24] MEDS: HYDROmorphone 1mg/ml Carpuject IVP PRN (05:35)
[2017-11-24 07:50] LABS: ANION GAP 7 mmol/L (5-15); BLOOD UREA NITROGEN 7 mg/dL (7-18); CALCIUM 8.6 MG/DL (8.5-10.1); CARBON DIOXIDE 27 MMOL/L (21-32); CHLORIDE 107 MMOL/L (98-107); CREATININE 0.7 MG/DL (0.55-1.30); POTASSIUM 3.9 MMOL/L (3.5-5.1); SODIUM 141 MMOL/L (136-145)
[2017-11-24 07:59] LABS: BASOPHILS % (AUTO) 1.1 % (0.0-2.0); EOSINOPHILS % (AUTO) 1.4 % (0.0-3.0); HEMATOCRIT 27.3 % (37.0-47.0); HEMOGLOBIN 8.6 G/DL (12.0-16.0); LYMPHOCYTES % (AUTO) 14.7 % (20.0-45.0); MEAN CORPUSCULAR VOLUME 87 FL (80-99); MONOCYTES % (AUTO) 12.9 % (1.0-10.0); PLATELET COUNT 226 K/UL (150-450); RED BLOOD COUNT 3.13 M/UL (4.20-5.40); RED CELL DISTRIBUTION WIDTH 13.3 % (11.6-14.8)
[2017-11-24 08:07] VITALS: BP 119/61
--- NOTE | 2017-11-24 08:46 | General Progress Note ---
Progress Note Progress Note Surgery: doing well. pain but improving. no n/v/f/c. ambulatory. passing flatus but no BM yet. afebrile, HD stable, labs good abd still distended but less today. wound c/d/i. drain with minimal serous output. -d/c drain -d/c iv fluid -adv to full liquids -ambulate and oob -possible d/c tomorrow Jose Eli Nov 24, 2017 08:46
[2017-11-24] MEDS ORDERED: Fleet's Enema 133ml RECTAL ONE (09:00)
[2017-11-24] MEDS ORDERED: Milk of Magnesia 30ml Ud ORAL ONE (09:00)
--- NOTE | 2017-11-24 09:00 | Pulmonology Progress Note ---
Assessment/Plan Assessment/Plan Assessment/Plan Small bowel obstruction with small bowel necrosis sp SB resection gangrene and perforation. thrombocytopenia On clear liquids' eating crackers per RN (brought in by family) NGT removed pain present but controlled Await further diet advancement... defer to surgery Bakari Causey M.D. Subjective Interval Events: Eating crackers brought in by family Constitutional: Reports: no symptoms HEENT: Repors: no symptoms Respiratory: Reports: no symptoms Cardiovascular: Reports: no symptoms Gastrointestinal/Abdominal: Reports: nausea Genitourinary: Reports: no symptoms Allergies: Coded Allergies: No Known Allergies (Unverified , 06/20/14) Objective Last 24 Hour Vital Signs Date Time Temp Pulse Resp B/P (MAP) Pulse Ox O2 Delivery O2 Flow Rate FiO2 11/24/17 08:07 98.2 61 20 119/61 98 11/24/17 04:00 99.3 74 18 126/66 96 11/23/17 23:15 98.1 73 20 113/59 100 Room Air 11/23/17 19:17 98.1 84 20 124/62 98 Room Air 11/23/17 16:00 98.1 69 17 110/60 97 11/23/17 11:45 98.4 85 20 125/69 96 Intake and Output 11/23/17 11/24/17 19:00 07:00 Intake Total 1265 ml 1020 ml Output Total 70 ml Balance 1265 ml 950 ml Intake Oral 740 ml 120 ml IV Total 525 ml 900 ml Drainage Total 70 ml # Voids 4 2 General Appearance: no acute distress HEENT: normocephalic Respiratory/Chest: chest wall non-tender, lungs clear Cardiovascular: normal peripheral pulses, normal rate Abdomen: hypoactive bowel sounds Laboratory Tests 11/24/17 06:30: White Blood Count 8.0, Red Blood Count 3.13L, Hemoglobin 8.6L, Hematocrit 27.3L , Mean Corpuscular Volume 87, Mean Corpuscular Hemoglobin 27.6, Mean Corpuscular Hemoglobin Concent 31.7L, Red Cell Distribution Width 13.3, Platelet Count 226, Mean Platelet Volume 5.9L, Neutrophils (%) (Auto) 70.0, Lymphocytes (%) (Auto) 14.7L, Monocytes (%) (Auto) 12.9H, Eosinophils (%) (Auto ) 1.4, Basophils (%) (Auto) 1.1, Sodium Level 141, Potassium Level 3.9, Chloride Level 107, Carbon Dioxide Level 27, Anion Gap 7, Blood Urea Nitrogen 7 , Creatinine 0.7, Estimat Glomerular Filtration Rate , Glucose Level 106, Calcium Level 8.6 Current Medications Medications (Trade) Dose Ordered Sig/Fanny Route PRN Reason Start Time Stop Time Status Last Admin Dose Admin Acetaminophen (Tylenol) 650 mg Q6H PRN RECTAL Mild Pain/Temp > 100.5 11/19/17 06:00 12/19/17 05:59 11/19/17 06:21 Acetaminophen/ Hydrocodone Bitart ([place] 5/325) 1 tab Q4H PRN ORAL Moderate Pain (Pain Scale 4-6) 11/23/17 14:30 11/30/17 14:29 Docusate Sodium (Colace) 100 mg TIDPRN PRN ORAL Constipation 11/23/17 14:30 12/23/17 14:29 11/24/17 05:27 Heparin Sodium (Porcine) (Heparin 5000 units/ml) 5,000 units EVERY 12 HOURS SUBQ 11/22/17 10:00 12/22/17 09:59 11/22/17 11:42 Magnesium Hydroxide (Mom) 30 ml ONCE ONCE ORAL 11/24/17 09:00 11/24/17 09:01 Ondansetron HCl (Zofran) 4 mg Q6H PRN IVP Nausea & Vomiting 11/17/17 21:30 12/17/17 21:29 Sodium Phosphate (Fleet's Sodium Phosl Enema) 133 ml ONCE ONCE RECTAL 11/24/17 09:00 11/24/17 09:01 Bakari Causey MD Nov 24, 2017 09:00
[2017-11-24] MEDS: Heparin 5000 units/ml inj SUBQ SCH ×2 (10:15→22:58)
--- NOTE | 2017-11-24 11:04 | GI Progress Note ---
Assessment/Plan Problems: (1) Abdominal pain ICD Codes: R10.9 - Unspecified abdominal pain SNOMED: 45981054 (2) Small bowel obstruction ICD Codes: K56.609 - Unspecified intestinal obstruction, unspecified as to partial versus complete obstruction SNOMED: 096838720 (3) Abdominal pain ICD Codes: R10.9 - Unspecified abdominal pain SNOMED: 77703814 (4) Dehydration ICD Codes: E86.0 - Dehydration SNOMED: 11240042 Status: doing well, stable, progressing Status Narrative Discussed with Dr. Coulter. Assessment/Plan OPERATION PERFORMED: 1. Diagnostic laparoscopy. 2. Laparoscopic small bowel resection with extracorporeal anastomosis. 3. Abdominal washout. fu surgical recs -d/c drain -d/c iv fluid -adv to full liquids -ambulate and oob -possible d/c tomorrow pain mgmt abx monitor H&H, prn transfusions ppi fu labs Subjective Subjective abdominal pain improving passing gas OOB Objective Last 24 Hour Vital Signs Date Time Temp Pulse Resp B/P (MAP) Pulse Ox O2 Delivery O2 Flow Rate FiO2 11/24/17 08:07 98.2 61 20 119/61 98 11/24/17 04:00 99.3 74 18 126/66 96 11/23/17 23:15 98.1 73 20 113/59 100 Room Air 11/23/17 19:17 98.1 84 20 124/62 98 Room Air 11/23/17 16:00 98.1 69 17 110/60 97 11/23/17 11:45 98.4 85 20 125/69 96 Intake and Output 11/23/17 11/24/17 19:00 07:00 Intake Total 1265 ml 1020 ml Output Total 70 ml Balance 1265 ml 950 ml Intake Oral 740 ml 120 ml IV Total 525 ml 900 ml Drainage Total 70 ml # Voids 4 2 Laboratory Tests Test 11/24/17 06:30 White Blood Count 8.0 K/UL (4.8-10.8) Red Blood Count 3.13 M/UL (4.20-5.40) L Hemoglobin 8.6 G/DL (12.0-16.0) L Hematocrit 27.3 % (37.0-47.0) L Mean Corpuscular Volume 87 FL (80-99) Mean Corpuscular Hemoglobin 27.6 PG (27.0-31.0) Mean Corpuscular Hemoglobin Concent 31.7 G/DL (32.0-36.0) L Red Cell Distribution Width 13.3 % (11.6-14.8) Platelet Count 226 K/UL (150-450) Mean Platelet Volume 5.9 FL (6.5-10.1) L Neutrophils (%) (Auto) 70.0 % (45.0-75.0) Lymphocytes (%) (Auto) 14.7 % (20.0-45.0) L Monocytes (%) (Auto) 12.9 % (1.0-10.0) H Eosinophils (%) (Auto) 1.4 % (0.0-3.0) Basophils (%) (Auto) 1.1 % (0.0-2.0) Sodium Level 141 MMOL/L (136-145) Potassium Level 3.9 MMOL/L (3.5-5.1) Chloride Level 107 MMOL/L (98-107) Carbon Dioxide Level 27 MMOL/L (21-32) Anion Gap 7 mmol/L (5-15) Blood Urea Nitrogen 7 mg/dL (7-18) Creatinine 0.7 MG/DL (0.55-1.30) Estimat Glomerular Filtration Rate mL/min (>60) Glucose Level 106 MG/DL (74-106) Calcium Level 8.6 MG/DL (8.5-10.1) Height (Feet): 5 Height (Inches): 9.00 Weight (Pounds): 170 General Appearance: WD/WN, no apparent distress, alert, thin Cardiovascular: normal rate Respiratory/Chest: normal breath sounds, no respiratory distress Abdominal Exam: normal bowel sounds, non tender, soft, incision site Extremities: normal range of motion, non-tender Donna Jose N.P. Nov 24, 2017 11:04
[2017-11-24 11:38] VITALS: BP 109/60
[2017-11-24] MEDS: Norco 5mg/325mg tab ORAL PRN (13:43)
[2017-11-24] MEDS ORDERED: Tubing IV Secondary IV ONE (15:31)
[2017-11-24 15:43] VITALS: BP 115/65
[2017-11-24 20:00] VITALS: BP 105/60
--- NOTE | 2017-11-24 21:38 | General Progress Note ---
Assessment/Plan Status: stable Assessment/Plan #. Anemia due to underlying chronic disease. --> Trend cbc daily. --> Blood transfusion not required today --> Hemoglobin has been stable >7 #. 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 --> Has resolved. --> The patient's condition is unchanged over the past four years. --> Review of the patient's prior labs from four years ago appears unchanged. --> Human immunodeficiency virus and hepatitis panel negative. --> We will continue to closely monitor. --> If it is less than 20,000, consider transfusion. #. Small bowel obstruction, status post resection. #. Abdominal pain due to gangrenous small bowel, status post laparotomy. --> Followup by GI services. --> Improving on pain control. #. Coagulopathy, likely related to recent surgery. Subjective Date patient seen: Nov 24, 2017 Constitutional: Denies: no symptoms, chills, diaphoresis, fever, malaise, weakness, other HEENT: Denies: no symptoms, eye pain, blurred vision, tearing, double vision, ear pain, ear discharge, nose pain, nose congestion, throat pain, throat swelling, mouth pain, mouth swelling, other Cardiovascular: Denies: no symptoms, chest pain, edema, irregular heart rate, lightheadedness, palpitations, syncope, other Respiratory: Denies: no symptoms, cough, orthopnea, shortness of breath, SOB with excertion, SOB at rest, sputum, stridor, wheezing, other Gastrointestinal/Abdominal: Denies: no symptoms, abdomen distended, abdominal pain, black stools, tarry stools, blood in stool, constipated, diarrhea, difficulty swallowing, nausea, poor appetite, poor fluid intake, rectal bleeding , vomiting, other Genitourinary: Denies: no symptoms, burning, discharge, frequency, flank pain, hematuria, incontinence, pain, urgency, other Allergies: Coded Allergies: No Known Allergies (Unverified , 06/20/14) Subjective Abdomen less distended today. H/H stable. Objective Last 24 Hour Vital Signs Date Time Temp Pulse Resp B/P (MAP) Pulse Ox O2 Delivery O2 Flow Rate FiO2 11/24/17 20:00 98.2 76 18 105/60 100 11/24/17 15:43 98.4 68 20 115/65 96 11/24/17 11:38 98.2 73 20 109/60 96 11/24/17 08:07 98.2 61 20 119/61 98 11/24/17 04:00 99.3 74 18 126/66 96 11/23/17 23:15 98.1 73 20 113/59 100 Room Air Intake and Output 11/23/17 11/24/17 19:00 07:00 Intake Total 1265 ml 1020 ml Output Total 70 ml Balance 1265 ml 950 ml Intake Oral 740 ml 120 ml IV Total 525 ml 900 ml Drainage Total 70 ml # Voids 4 2 Laboratory Tests 11/24/17 06:30: White Blood Count 8.0, Red Blood Count 3.13L, Hemoglobin 8.6L, Hematocrit 27.3L , Mean Corpuscular Volume 87, Mean Corpuscular Hemoglobin 27.6, Mean Corpuscular Hemoglobin Concent 31.7L, Red Cell Distribution Width 13.3, Platelet Count 226, Mean Platelet Volume 5.9L, Neutrophils (%) (Auto) 70.0, Lymphocytes (%) (Auto) 14.7L, Monocytes (%) (Auto) 12.9H, Eosinophils (%) (Auto ) 1.4, Basophils (%) (Auto) 1.1, Sodium Level 141, Potassium Level 3.9, Chloride Level 107, Carbon Dioxide Level 27, Anion Gap 7, Blood Urea Nitrogen 7 , Creatinine 0.7, Estimat Glomerular Filtration Rate , Glucose Level 106, Calcium Level 8.6 Height (Feet): 5 Height (Inches): 9.00 Weight (Pounds): 170 General Appearance: no apparent distress EENT: normal ENT inspection Neck: supple Abdomen: distended Edema: trace edema 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
[2017-11-25] VITALS: BP 129/65
[2017-11-25] MEDS ORDERED: Fleet's Enema 133ml RECTAL ONE (01:30)
[2017-11-25] MEDS: Norco 5mg/325mg tab ORAL PRN ×3 (02:25→20:16)
[2017-11-25 04:00] VITALS: BP 127/71
[2017-11-25 07:07] LABS: BASOPHILS % (AUTO) 1.2 % (0.0-2.0); EOSINOPHILS % (AUTO) 0.4 % (0.0-3.0); HEMATOCRIT 29.7 % (37.0-47.0); HEMOGLOBIN 9.7 G/DL (12.0-16.0); LYMPHOCYTES % (AUTO) 12.4 % (20.0-45.0); MEAN CORPUSCULAR VOLUME 87 FL (80-99); MONOCYTES % (AUTO) 10.4 % (1.0-10.0); NEUTROPHILS % (AUTO) 75.6 % (45.0-75.0); PLATELET COUNT 284 K/UL (150-450); RED CELL DISTRIBUTION WIDTH 13.7 % (11.6-14.8); WHITE BLOOD COUNT 9.5 K/UL (4.8-10.8)
[2017-11-25 07:22] LABS: ANION GAP 8 mmol/L (5-15); BLOOD UREA NITROGEN 7 mg/dL (7-18); CALCIUM 8.5 MG/DL (8.5-10.1); CARBON DIOXIDE 27 MMOL/L (21-32); CHLORIDE 107 MMOL/L (98-107); CREATININE 0.7 MG/DL (0.55-1.30); POTASSIUM 3.4 MMOL/L (3.5-5.1); SODIUM 142 MMOL/L (136-145)
[2017-11-25 08:00] VITALS: BP 128/56
--- NOTE | 2017-11-25 08:02 | Pulmonology Progress Note ---
Assessment/Plan Assessment/Plan Assessment/Plan Small bowel obstruction with small bowel necrosis sp SB resection gangrene and perforation. thrombocytopenia Advance diet per surgery NGT removed Drain DC pain present but controlled Discharge planning... defer to surgery Bakari Causey M.D. Subjective Interval Events: Better Constitutional: Reports: no symptoms HEENT: Repors: no symptoms Respiratory: Reports: no symptoms Gastrointestinal/Abdominal: Reports: nausea Genitourinary: Reports: no symptoms Allergies: Coded Allergies: No Known Allergies (Unverified , 06/20/14) Objective Last 24 Hour Vital Signs Date Time Temp Pulse Resp B/P (MAP) Pulse Ox O2 Delivery O2 Flow Rate FiO2 11/25/17 04:00 98.2 79 20 127/71 98 11/25/17 00:00 98.7 76 18 129/65 99 11/24/17 20:00 98.2 76 18 105/60 100 11/24/17 15:43 98.4 68 20 115/65 96 11/24/17 11:38 98.2 73 20 109/60 96 11/24/17 08:07 98.2 61 20 119/61 98 Intake and Output 11/24/17 11/25/17 19:00 07:00 Intake Total 890 ml 370 ml Balance 890 ml 370 ml Intake Oral 890 ml 370 ml # Voids 2 # Bowel Movements 2 General Appearance: no acute distress HEENT: normocephalic Respiratory/Chest: chest wall non-tender, lungs clear Cardiovascular: normal peripheral pulses, normal rate Laboratory Tests 11/25/17 05:20: White Blood Count 9.5, Red Blood Count 3.40L, Hemoglobin 9.7L, Hematocrit 29.7L , Mean Corpuscular Volume 87, Mean Corpuscular Hemoglobin 28.6, Mean Corpuscular Hemoglobin Concent 32.8, Red Cell Distribution Width 13.7, Platelet Count 284, Mean Platelet Volume 6.2L, Neutrophils (%) (Auto) 75.6H, Lymphocytes (%) (Auto) 12.4L, Monocytes (%) (Auto) 10.4H, Eosinophils (%) (Auto) 0.4, Basophils (%) (Auto) 1.2, Sodium Level 142, Potassium Level 3.4L, Chloride Level 107, Carbon Dioxide Level 27, Anion Gap 8, Blood Urea Nitrogen 7, Creatinine 0.7, Estimat Glomerular Filtration Rate , Glucose Level 97, Calcium Level 8.5 Current Medications Medications (Trade) Dose Ordered Sig/Fanny Route PRN Reason Start Time Stop Time Status Last Admin Dose Admin Acetaminophen (Tylenol) 650 mg Q6H PRN RECTAL Mild Pain/Temp > 100.5 11/19/17 06:00 12/19/17 05:59 11/19/17 06:21 Acetaminophen/ Hydrocodone Bitart ([place] 5/325) 1 tab Q4H PRN ORAL Moderate Pain (Pain Scale 4-6) 11/23/17 14:30 11/30/17 14:29 11/25/17 02:25 Docusate Sodium (Colace) 100 mg TIDPRN PRN ORAL Constipation 11/23/17 14:30 12/23/17 14:29 11/24/17 05:27 Heparin Sodium (Porcine) (Heparin 5000 units/ml) 5,000 units EVERY 12 HOURS SUBQ 11/22/17 10:00 12/22/17 09:59 11/24/17 22:58 Ondansetron HCl (Zofran) 4 mg Q6H PRN IVP Nausea & Vomiting 11/17/17 21:30 12/17/17 21:29 Bakari Causey MD Nov 25, 2017 08:02
[2017-11-25] MEDS: Heparin 5000 units/ml inj SUBQ SCH ×2 (08:50→20:17)
--- NOTE | 2017-11-25 10:27 | General Progress Note ---
Progress Note Progress Note Surgery: pt seen and examined. unfortunately she is very unmotivated and poor compliance with recs. she only gets out of bed maybe once a day. I discuss with her, family, staff daily about activity and how important it is but patient states that she does not care and just lays in bed all day. does not sit in chair or try to be active. had enema yesterday and some liquid stool after but I dont think it was a full bowel movement. passing flatus. afebrile, HD stable, exam with distention and tympany. mild nausea no emesis. KUB reviewed and looks like ileus. states she feels like legs are swollen. labs okay. -Venous duplex to eval for DVT. (not active and non compliant with dvt anticoagulation) -lasix 20 IV once (fluid retention) -ambulate and oob -dressings -scd's and heparin -trend labs -await ileus to resolve. Jose Eli Nov 25, 2017 10:27
--- NOTE | 2017-11-25 10:57 | Diagnostic Imaging Report ---
Indication: Reason For Exam: ABD DIST Technique: Oral supine views of the abdomen Comparison: 11/18/2017, 11/17/2017 Findings: Nasogastric tube has been removed. There is interval increased dilatation of multiple small bowel loops, with most dilated loop measuring up to 4.5 cm in diameter. No evidence to suggest free intraperitoneal air however sensitivity limited on supine view. No acute osseous abnormality seen. Impression: Interval removal of NG tube. Increased gaseous distention of multiple small bowel loops concerning for bowel obstruction. Clinical correlation and follow-up exam (radiographs for CT with oral contrast) recommended.
[2017-11-25 12:00] VITALS: BP 119/63
--- NOTE | 2017-11-25 12:06 | GI Progress Note ---
Assessment/Plan Problems: (1) Abdominal pain ICD Codes: R10.9 - Unspecified abdominal pain SNOMED: 35584929 (2) Small bowel obstruction ICD Codes: K56.609 - Unspecified intestinal obstruction, unspecified as to partial versus complete obstruction SNOMED: 756935412 (3) Abdominal pain ICD Codes: R10.9 - Unspecified abdominal pain SNOMED: 59546463 (4) Dehydration ICD Codes: E86.0 - Dehydration SNOMED: 99096155 Status: not improved Status Narrative Discussed with Dr. Coulter. Assessment/Plan OPERATION PERFORMED: 1. Diagnostic laparoscopy. 2. Laparoscopic small bowel resection with extracorporeal anastomosis. 3. Abdominal washout. repeat KUB reviewed >> increases gaseous distention hep panel negative fu surgical recs - await ileus to resolve pain mgmt abx monitor H&H, prn transfusions ppi fu labs Subjective Subjective abdominal bloating minimal BM passing gas Objective Last 24 Hour Vital Signs Date Time Temp Pulse Resp B/P (MAP) Pulse Ox O2 Delivery O2 Flow Rate FiO2 11/25/17 08:00 97.7 73 20 128/56 97 11/25/17 04:00 98.2 79 20 127/71 98 11/25/17 00:00 98.7 76 18 129/65 99 11/24/17 20:00 98.2 76 18 105/60 100 11/24/17 15:43 98.4 68 20 115/65 96 Intake and Output 11/24/17 11/25/17 19:00 07:00 Intake Total 890 ml 370 ml Balance 890 ml 370 ml Intake Oral 890 ml 370 ml # Voids 2 # Bowel Movements 2 Laboratory Tests Test 11/25/17 05:20 White Blood Count 9.5 K/UL (4.8-10.8) Red Blood Count 3.40 M/UL (4.20-5.40) L Hemoglobin 9.7 G/DL (12.0-16.0) L Hematocrit 29.7 % (37.0-47.0) L Mean Corpuscular Volume 87 FL (80-99) Mean Corpuscular Hemoglobin 28.6 PG (27.0-31.0) Mean Corpuscular Hemoglobin Concent 32.8 G/DL (32.0-36.0) Red Cell Distribution Width 13.7 % (11.6-14.8) Platelet Count 284 K/UL (150-450) Mean Platelet Volume 6.2 FL (6.5-10.1) L Neutrophils (%) (Auto) 75.6 % (45.0-75.0) H Lymphocytes (%) (Auto) 12.4 % (20.0-45.0) L Monocytes (%) (Auto) 10.4 % (1.0-10.0) H Eosinophils (%) (Auto) 0.4 % (0.0-3.0) Basophils (%) (Auto) 1.2 % (0.0-2.0) Sodium Level 142 MMOL/L (136-145) Potassium Level 3.4 MMOL/L (3.5-5.1) L Chloride Level 107 MMOL/L (98-107) Carbon Dioxide Level 27 MMOL/L (21-32) Anion Gap 8 mmol/L (5-15) Blood Urea Nitrogen 7 mg/dL (7-18) Creatinine 0.7 MG/DL (0.55-1.30) Estimat Glomerular Filtration Rate mL/min (>60) Glucose Level 97 MG/DL (74-106) Calcium Level 8.5 MG/DL (8.5-10.1) Height (Feet): 5 Height (Inches): 9.00 Weight (Pounds): 170 General Appearance: WD/WN, no apparent distress, alert, thin Cardiovascular: normal rate Respiratory/Chest: normal breath sounds, no respiratory distress Abdominal Exam: normal bowel sounds, non tender, soft Extremities: normal range of motion, non-tender Donna Jose N.P. Nov 25, 2017 12:06
[2017-11-25 16:00] VITALS: BP 130/60
[2017-11-25 20:00] VITALS: BP 133/68
--- NOTE | 2017-11-25 23:26 | General Progress Note ---
Assessment/Plan Status: unchanged Assessment/Plan #. Anemia due to underlying chronic disease. --> Trend cbc daily. --> Blood transfusion not required today --> Hemoglobin has been stable >7 #. Venous duplex, eval for DVT. --> Patient noncompliant with anticoagulation measures. #. 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 --> Has resolved. --> The patient's condition is unchanged over the past four years. --> Review of the patient's prior labs from four years ago appears unchanged. --> Human immunodeficiency virus and hepatitis panel negative. --> We will continue to closely monitor. --> If it is less than 20,000, consider transfusion. #. Small bowel obstruction, status post resection. #. Abdominal pain due to gangrenous small bowel, status post laparotomy. --> Followup by GI services. --> Improving on pain control. #. Coagulopathy, likely related to recent surgery. Subjective Date patient seen: Nov 25, 2017 Constitutional: Denies: no symptoms, chills, diaphoresis, fever, malaise, weakness, other HEENT: Denies: no symptoms, eye pain, blurred vision, tearing, double vision, ear pain, ear discharge, nose pain, nose congestion, throat pain, throat swelling, mouth pain, mouth swelling, other Cardiovascular: Denies: no symptoms, chest pain, edema, irregular heart rate, lightheadedness, palpitations, syncope, other Respiratory: Denies: no symptoms, cough, orthopnea, shortness of breath, SOB with excertion, SOB at rest, sputum, stridor, wheezing, other Gastrointestinal/Abdominal: Denies: no symptoms, abdomen distended, abdominal pain, black stools, tarry stools, blood in stool, constipated, diarrhea, difficulty swallowing, nausea, poor appetite, poor fluid intake, rectal bleeding , vomiting, other Genitourinary: Denies: no symptoms, burning, discharge, frequency, flank pain, hematuria, incontinence, pain, urgency, other Neurologic/Psychiatric: Denies: no symptoms, anxiety, depressed, emotional problems, headache, numbness, paresthesia, pre-existing deficit, seizure, tingling, tremors, weakness, other Allergies: Coded Allergies: No Known Allergies (Unverified , 06/20/14) Subjective Patient noncompliant with anticoag and treatments. No major events. Objective Last 24 Hour Vital Signs Date Time Temp Pulse Resp B/P (MAP) Pulse Ox O2 Delivery O2 Flow Rate FiO2 11/25/17 20:00 97.8 85 20 133/68 94 11/25/17 16:00 97.9 73 19 130/60 98 11/25/17 12:00 97.5 71 19 119/63 99 11/25/17 08:00 97.7 73 20 128/56 97 11/25/17 04:00 98.2 79 20 127/71 98 11/25/17 00:00 98.7 76 18 129/65 99 Intake and Output 11/24/17 11/25/17 19:00 07:00 Intake Total 890 ml 370 ml Balance 890 ml 370 ml Intake Oral 890 ml 370 ml # Voids 2 # Bowel Movements 2 Laboratory Tests 11/25/17 05:20: White Blood Count 9.5, Red Blood Count 3.40L, Hemoglobin 9.7L, Hematocrit 29.7L , Mean Corpuscular Volume 87, Mean Corpuscular Hemoglobin 28.6, Mean Corpuscular Hemoglobin Concent 32.8, Red Cell Distribution Width 13.7, Platelet Count 284, Mean Platelet Volume 6.2L, Neutrophils (%) (Auto) 75.6H, Lymphocytes (%) (Auto) 12.4L, Monocytes (%) (Auto) 10.4H, Eosinophils (%) (Auto) 0.4, Basophils (%) (Auto) 1.2, Sodium Level 142, Potassium Level 3.4L, Chloride Level 107, Carbon Dioxide Level 27, Anion Gap 8, Blood Urea Nitrogen 7, Creatinine 0.7, Estimat Glomerular Filtration Rate , Glucose Level 97, Calcium Level 8.5 Height (Feet): 5 Height (Inches): 9.00 Weight (Pounds): 170 Jose Alfredo Benavides Nov 25, 2017 23:26
[2017-11-26] VITALS: BP 135/71
[2017-11-26 04:07] VITALS: BP 131/68
[2017-11-26 08:00] VITALS: BP 123/60
[2017-11-26 08:59] LABS: BASOPHILS % (AUTO) 0.7 % (0.0-2.0); EOSINOPHILS % (AUTO) 0.7 % (0.0-3.0); HEMATOCRIT 28.7 % (37.0-47.0); HEMOGLOBIN 9.3 G/DL (12.0-16.0); LYMPHOCYTES % (AUTO) 13.9 % (20.0-45.0); MEAN CORPUSCULAR VOLUME 88 FL (80-99); MONOCYTES % (AUTO) 9.1 % (1.0-10.0); NEUTROPHILS % (AUTO) 75.6 % (45.0-75.0); PLATELET COUNT 326 K/UL (150-450); RED BLOOD COUNT 3.28 M/UL (4.20-5.40); RED CELL DISTRIBUTION WIDTH 13.4 % (11.6-14.8); WHITE BLOOD COUNT 9.8 K/UL (4.8-10.8)
[2017-11-26] MEDS: Heparin 5000 units/ml inj SUBQ SCH ×2 (09:00→21:00)
[2017-11-26 09:48] LABS: ALANINE AMINOTRANSFERASE 23 U/L (12-78); ALBUMIN/GLOBULIN RATIO 0.6 (1.0-2.7); ALKALINE PHOSPHATASE 55 U/L (46-116); ANION GAP 8 mmol/L (5-15); ASPARTATE AMINO TRANSFERASE 18 U/L (15-37); BILIRUBIN,TOTAL 0.3 MG/DL (0.2-1.0); BLOOD UREA NITROGEN 6 mg/dL (7-18); CALCIUM 8.6 MG/DL (8.5-10.1); CARBON DIOXIDE 28 MMOL/L (21-32); CHLORIDE 103 MMOL/L (98-107); CREATININE 0.7 MG/DL (0.55-1.30); POTASSIUM 4.2 MMOL/L (3.5-5.1); SODIUM 139 MMOL/L (136-145)
--- NOTE | 2017-11-26 10:18 | General Progress Note ---
Assessment/Plan Assessment/Plan Small bowel obstruction with small bowel necrosis gangrene and perforation. thrombocytopenia slowly better ambulating somPO poor may need SNF Subjective Constitutional: Reports: malaise, weakness Gastrointestinal/Abdominal: Reports: abdomen distended, abdominal pain Allergies: Coded Allergies: No Known Allergies (Unverified , 06/20/14) Objective Last 24 Hour Vital Signs Date Time Temp Pulse Resp B/P (MAP) Pulse Ox O2 Delivery O2 Flow Rate FiO2 11/26/17 08:00 97.9 78 19 123/60 97 11/26/17 04:07 97.6 81 20 131/68 94 11/26/17 00:00 97.6 79 20 135/71 94 11/25/17 21:15 97.6 11/25/17 20:00 97.8 85 20 133/68 94 11/25/17 16:00 97.9 73 19 130/60 98 11/25/17 12:00 97.5 71 19 119/63 99 Intake and Output 11/25/17 11/26/17 19:00 07:00 Intake Total 240 ml Balance 240 ml Intake Oral 240 ml # Voids 2 Laboratory Tests 11/26/17 07:50: White Blood Count 9.8, Red Blood Count 3.28L, Hemoglobin 9.3L, Hematocrit 28.7L , Mean Corpuscular Volume 88, Mean Corpuscular Hemoglobin 28.5, Mean Corpuscular Hemoglobin Concent 32.5, Red Cell Distribution Width 13.4, Platelet Count 326, Mean Platelet Volume 6.2L, Neutrophils (%) (Auto) 75.6H, Lymphocytes (%) (Auto) 13.9L, Monocytes (%) (Auto) 9.1, Eosinophils (%) (Auto) 0.7, Basophils (%) (Auto) 0.7, Sodium Level 139, Potassium Level 4.2, Chloride Level 103, Carbon Dioxide Level 28, Anion Gap 8, Blood Urea Nitrogen 6L, Creatinine 0.7, Estimat Glomerular Filtration Rate , Glucose Level 89, Calcium Level 8.6, Total Bilirubin 0.3, Aspartate Amino Transf (AST/SGOT) 18, Alanine Aminotransferase (ALT/SGPT) 23, Alkaline Phosphatase 55, Total Protein 5.6L, Albumin 2.0L, Globulin 3.6, Albumin/Globulin Ratio 0.6L Height (Feet): 5 Height (Inches): 9.00 Weight (Pounds): 170 General Appearance: no apparent distress Neck: supple Cardiovascular: normal rate Respiratory/Chest: lungs clear Abdomen: non tender, distended DAVID SERRANO Nov 26, 2017 10:18
--- NOTE | 2017-11-26 11:37 | GI Progress Note ---
Assessment/Plan Problems: (1) Abdominal pain ICD Codes: R10.9 - Unspecified abdominal pain SNOMED: 87545174 (2) Small bowel obstruction ICD Codes: K56.609 - Unspecified intestinal obstruction, unspecified as to partial versus complete obstruction SNOMED: 632672476 (3) Abdominal pain ICD Codes: R10.9 - Unspecified abdominal pain SNOMED: 32598698 (4) Dehydration ICD Codes: E86.0 - Dehydration SNOMED: 73088417 Status: unchanged Status Narrative Discussed with Dr. Coulter. Assessment/Plan OPERATION PERFORMED: 1. Diagnostic laparoscopy. 2. Laparoscopic small bowel resection with extracorporeal anastomosis. 3. Abdominal washout. repeat KUB reviewed >> increases gaseous distention hep panel negative fu surgical recs - await ileus to resolve pain mgmt abx monitor H&H, prn transfusions ppi fu labs Subjective Subjective abdominal bloating better minimal BM passing gas ambulating some Objective Last 24 Hour Vital Signs Date Time Temp Pulse Resp B/P (MAP) Pulse Ox O2 Delivery O2 Flow Rate FiO2 11/26/17 08:00 97.9 78 19 123/60 97 11/26/17 04:07 97.6 81 20 131/68 94 11/26/17 00:00 97.6 79 20 135/71 94 11/25/17 21:15 97.6 11/25/17 20:00 97.8 85 20 133/68 94 11/25/17 16:00 97.9 73 19 130/60 98 11/25/17 12:00 97.5 71 19 119/63 99 Intake and Output 11/25/17 11/26/17 19:00 07:00 Intake Total 240 ml Balance 240 ml Intake Oral 240 ml # Voids 2 Laboratory Tests Test 11/26/17 07:50 White Blood Count 9.8 K/UL (4.8-10.8) Red Blood Count 3.28 M/UL (4.20-5.40) L Hemoglobin 9.3 G/DL (12.0-16.0) L Hematocrit 28.7 % (37.0-47.0) L Mean Corpuscular Volume 88 FL (80-99) Mean Corpuscular Hemoglobin 28.5 PG (27.0-31.0) Mean Corpuscular Hemoglobin Concent 32.5 G/DL (32.0-36.0) Red Cell Distribution Width 13.4 % (11.6-14.8) Platelet Count 326 K/UL (150-450) Mean Platelet Volume 6.2 FL (6.5-10.1) L Neutrophils (%) (Auto) 75.6 % (45.0-75.0) H Lymphocytes (%) (Auto) 13.9 % (20.0-45.0) L Monocytes (%) (Auto) 9.1 % (1.0-10.0) Eosinophils (%) (Auto) 0.7 % (0.0-3.0) Basophils (%) (Auto) 0.7 % (0.0-2.0) Sodium Level 139 MMOL/L (136-145) Potassium Level 4.2 MMOL/L (3.5-5.1) Chloride Level 103 MMOL/L (98-107) Carbon Dioxide Level 28 MMOL/L (21-32) Anion Gap 8 mmol/L (5-15) Blood Urea Nitrogen 6 mg/dL (7-18) L Creatinine 0.7 MG/DL (0.55-1.30) Estimat Glomerular Filtration Rate mL/min (>60) Glucose Level 89 MG/DL (74-106) Calcium Level 8.6 MG/DL (8.5-10.1) Total Bilirubin 0.3 MG/DL (0.2-1.0) Aspartate Amino Transf (AST/SGOT) 18 U/L (15-37) Alanine Aminotransferase (ALT/SGPT) 23 U/L (12-78) Alkaline Phosphatase 55 U/L (46-116) Total Protein 5.6 G/DL (6.4-8.2) L Albumin 2.0 G/DL (3.4-5.0) L Globulin 3.6 g/dL Albumin/Globulin Ratio 0.6 (1.0-2.7) L Height (Feet): 5 Height (Inches): 9.00 Weight (Pounds): 170 General Appearance: WD/WN, no apparent distress, alert, thin Cardiovascular: normal rate Respiratory/Chest: normal breath sounds, no respiratory distress Abdominal Exam: normal bowel sounds, non tender, soft, incision site Extremities: normal range of motion, non-tender Donna Jose N.P. Nov 26, 2017 11:37
--- NOTE | 2017-11-26 11:51 | General Progress Note ---
Progress Note Progress Note Surgery: looking much better today. no n/v/f/c. tolerating diet. in chair and ambulatory. mood improved. states passing lots of flatus. (so much that she is "feels bad" when people come into the room at times as per patient). afebrile, HD stable, labs okay. abdomen still distended but soft and non tender. KUB improved somewhat today with air in colon and smaller diameter small bowel patient states she is very constipated and has been for many years. states she takes many stool meds at home. milk of mag is "weak" and she uses mag citrate to help her poop. -order mag citrate -diet -activity Awaiting return of bowel function. possible d/c home tomorrow Jose Eli Nov 26, 2017 11:51
[2017-11-26 12:00] VITALS: BP 134/86
[2017-11-26] MEDS ORDERED: Magnesium Citrate Liq Btl ORAL ONE (13:00)
--- NOTE | 2017-11-26 14:17 | Diagnostic Imaging Report ---
Indication: Abdominal distention Comparison: November 25, 2017 Single view of the abdomen obtained Findings: Small bowel distention noted but improved slightly since prior study. There is also colonic distention which is mild. Findings probably represent ileus that appears to be improving. Please correlate clinically. Follow-up suggested. IMPRESSION: Improved small bowel dilatation with prominent small and large bowel. Findings likely due to ileus.
[2017-11-26 16:15] VITALS: BP 123/67
[2017-11-26 20:20] VITALS: BP 125/64
[2017-11-27 08:30] VITALS: BP 122/67
--- NOTE | 2017-11-27 08:47 | General Progress Note ---
Assessment/Plan Problem List: (1) Abdominal pain ICD Codes: R10.9 - Unspecified abdominal pain SNOMED: 96552210 (2) Small bowel obstruction ICD Codes: K56.609 - Unspecified intestinal obstruction, unspecified as to partial versus complete obstruction SNOMED: 496779657 (3) Abdominal pain ICD Codes: R10.9 - Unspecified abdominal pain SNOMED: 02846027 (4) Dehydration ICD Codes: E86.0 - Dehydration SNOMED: 88692774 Assessment/Plan s/p surgery doing better on diet had BM dc planning per primary team Subjective ROS Limited/Unobtainable: Yes Allergies: Coded Allergies: No Known Allergies (Unverified , 06/20/14) Subjective feeling better had good BM this morning Objective Last 24 Hour Vital Signs Date Time Temp Pulse Resp B/P (MAP) Pulse Ox O2 Delivery O2 Flow Rate FiO2 11/27/17 08:30 98.2 77 20 122/67 99 11/26/17 20:20 98.4 98 20 125/64 97 Room Air 11/26/17 16:15 98.4 82 20 123/67 98 11/26/17 12:00 97.7 68 20 134/86 98 Intake and Output 11/26/17 11/27/17 19:00 07:00 Intake Total 240 ml 360 ml Output Total 200 ml Balance 240 ml 160 ml Intake Oral 240 ml 360 ml Emesis 200 ml # Voids 3 Laboratory Tests 11/27/17 08:04: White Blood Count [Pending], Red Blood Count [Pending], Hemoglobin [Pending], Hematocrit [Pending], Mean Corpuscular Volume [Pending], Mean Corpuscular Hemoglobin [Pending], Mean Corpuscular Hemoglobin Concent [Pending], Red Cell Distribution Width [Pending], Platelet Count [Pending], Mean Platelet Volume [ Pending], Neutrophils (%) (Auto) [Pending], Lymphocytes (%) (Auto) [Pending], Monocytes (%) (Auto) [Pending], Eosinophils (%) (Auto) [Pending], Basophils (%) (Auto) [Pending], Sodium Level [Pending], Potassium Level [Pending], Chloride Level [Pending], Carbon Dioxide Level [Pending], Blood Urea Nitrogen [Pending], Creatinine [Pending], Estimat Glomerular Filtration Rate [Pending], Glucose Level [Pending], Calcium Level [Pending] Height (Feet): 5 Height (Inches): 9.00 Weight (Pounds): 170 General Appearance: alert EENT: normal ENT inspection Neck: supple Cardiovascular: normal rate Respiratory/Chest: decreased breath sounds Abdomen: soft, hypoactive bowel sounds, tender Extremities: non-tender LOUIS SIMPSON Nov 27, 2017 08:47
[2017-11-27 09:07] LABS: BASOPHILS % (AUTO) 0.5 % (0.0-2.0); EOSINOPHILS % (AUTO) 0.4 % (0.0-3.0); HEMATOCRIT 30.5 % (37.0-47.0); HEMOGLOBIN 9.8 G/DL (12.0-16.0); LYMPHOCYTES % (AUTO) 14.1 % (20.0-45.0); MEAN CORPUSCULAR VOLUME 88 FL (80-99); MONOCYTES % (AUTO) 7.3 % (1.0-10.0); NEUTROPHILS % (AUTO) 77.8 % (45.0-75.0); PLATELET COUNT 382 K/UL (150-450); RED BLOOD COUNT 3.48 M/UL (4.20-5.40); RED CELL DISTRIBUTION WIDTH 13.5 % (11.6-14.8); WHITE BLOOD COUNT 11.6 K/UL (4.8-10.8)
--- NOTE | 2017-11-27 09:24 | Pulmonology Progress Note ---
Assessment/Plan Assessment/Plan Assessment/Plan Small bowel obstruction with small bowel necrosis sp SB resection gangrene and perforation. thrombocytopenia Advance diet per surgery NGT removed Drain DC pain present but controlled Discharge planning... defer to surgery Bakari Causey M.D. Subjective Interval Events: Still with complaints of abd pain Constitutional: Reports: no symptoms HEENT: Repors: no symptoms Respiratory: Reports: no symptoms Cardiovascular: Reports: no symptoms Allergies: Coded Allergies: No Known Allergies (Unverified , 06/20/14) Objective Last 24 Hour Vital Signs Date Time Temp Pulse Resp B/P (MAP) Pulse Ox O2 Delivery O2 Flow Rate FiO2 11/27/17 08:30 98.2 77 20 122/67 99 11/26/17 20:20 98.4 98 20 125/64 97 Room Air 11/26/17 16:15 98.4 82 20 123/67 98 11/26/17 12:00 97.7 68 20 134/86 98 Intake and Output 11/26/17 11/27/17 19:00 07:00 Intake Total 240 ml 360 ml Output Total 200 ml Balance 240 ml 160 ml Intake Oral 240 ml 360 ml Emesis 200 ml # Voids 3 General Appearance: no acute distress HEENT: normocephalic Respiratory/Chest: chest wall non-tender, lungs clear Cardiovascular: normal peripheral pulses Abdomen: normal bowel sounds Laboratory Tests 11/27/17 08:04: White Blood Count [Pending], Red Blood Count [Pending], Hemoglobin [Pending], Hematocrit [Pending], Mean Corpuscular Volume [Pending], Mean Corpuscular Hemoglobin [Pending], Mean Corpuscular Hemoglobin Concent [Pending], Red Cell Distribution Width [Pending], Platelet Count [Pending], Mean Platelet Volume [ Pending], Neutrophils (%) (Auto) [Pending], Lymphocytes (%) (Auto) [Pending], Monocytes (%) (Auto) [Pending], Eosinophils (%) (Auto) [Pending], Basophils (%) (Auto) [Pending], Sodium Level [Pending], Potassium Level [Pending], Chloride Level [Pending], Carbon Dioxide Level [Pending], Blood Urea Nitrogen [Pending], Creatinine [Pending], Estimat Glomerular Filtration Rate [Pending], Glucose Level [Pending], Calcium Level [Pending] Current Medications Medications (Trade) Dose Ordered Sig/Fanny Route PRN Reason Start Time Stop Time Status Last Admin Dose Admin Acetaminophen (Tylenol) 650 mg Q6H PRN RECTAL Mild Pain/Temp > 100.5 11/19/17 06:00 12/19/17 05:59 11/19/17 06:21 Acetaminophen/ Hydrocodone Bitart ([place] 5/325) 1 tab Q4H PRN ORAL Moderate Pain (Pain Scale 4-6) 11/23/17 14:30 11/30/17 14:29 11/25/17 20:16 Docusate Sodium (Colace) 100 mg TIDPRN PRN ORAL Constipation 11/23/17 14:30 12/23/17 14:29 11/24/17 05:27 Heparin Sodium (Porcine) (Heparin 5000 units/ml) 5,000 units EVERY 12 HOURS SUBQ 11/22/17 10:00 12/22/17 09:59 11/25/17 08:50 Ondansetron HCl (Zofran) 4 mg Q6H PRN IVP Nausea & Vomiting 11/17/17 21:30 12/17/17 21:29 11/26/17 22:02 Potassium Chloride (K-Dur) 40 meq TWICE A DAY ORAL 11/25/17 15:30 12/25/17 15:29 11/25/17 15:47 Bakari Causey MD Nov 27, 2017 09:24
[2017-11-27 09:47] LABS: ANION GAP 5 mmol/L (5-15); BLOOD UREA NITROGEN 7 mg/dL (7-18); CALCIUM 9.1 MG/DL (8.5-10.1); CARBON DIOXIDE 33 MMOL/L (21-32); CHLORIDE 102 MMOL/L (98-107); CREATININE 0.8 MG/DL (0.55-1.30); SODIUM 140 MMOL/L (136-145)
[2017-11-27] MEDS: Heparin 5000 units/ml inj SUBQ SCH (09:54)
--- NOTE | 2017-11-27 11:06 | General Progress Note ---
Progress Note Progress Note Surgery: doing much better today. Had a rough day yesterday. States she did not sleep much the night prior and felt weird the whole day. Fortunately had lots of good sleep last night and feels great today. Mag Citrate given as she has history of severe constipation at home. Initially caused nausea and emesis. once that cleared she states she felt much better then had 2 Large BM's yesterday. tolerating diet. ambulatory. states pain gone. afebrile, HD stable, labs reviewed. leukocytosis of 11k but okay. abdomen soft, nt/nd, bs+. much softer and less distended today. KUB reviewed and improved. -okay to d/c home today from surgical standpoint. if patient not ready or family cannot accommodate her she can go home tomorrow morning. follow up with me this Wednesday call [phone] for appointment d/c instructions given to patient at bedside okay to shower, no bathing. dressings to wound tiami and Jose Cabrera Nov 27, 2017 11:05
--- NOTE | 2017-11-27 11:06 | Diagnostic Imaging Report ---
Indication: Abdominal distention Technique: Supine view of the abdomen Comparison: none Findings: Gas-filled nondistended left and transverse colon again demonstrated. A few borderline dilated gas-filled small bowel loops are seen in the left lower quadrant, appearing slightly less distended than on the prior study. Impression: Slightly improved small bowel distention, over one day Findings previously discussed by phone with Dr. Eli
[2017-11-27 11:57] VITALS: BP 111/64
[2017-11-27] MEDS ORDERED: IBUPROFEN600 MG ORAL (13:01)
[2017-11-27] MEDS ORDERED: COLACE100 MG ORAL (13:02)
--- NOTE | 2017-11-28 02:16 | General Progress Note ---
Assessment/Plan Assessment/Plan #. Anemia due to underlying chronic disease. --> Trend cbc daily. --> Blood transfusion has not been required. --> Hemoglobin has been stable >7 #. Venous duplex, eval for DVT. --> On anticoagulation measures, monitor closely. #. 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 --> Has resolved. --> The patient's condition is unchanged over the past four years. --> Review of the patient's prior labs from four years ago appears unchanged. --> Human immunodeficiency virus and hepatitis panel negative. --> We will continue to closely monitor. --> If it is less than 20,000, consider transfusion. #. Small bowel obstruction, status post resection. --> Abdomen xray showing improved bowel distention. #. Abdominal pain due to gangrenous small bowel, status post laparotomy. --> Followup by GI services. --> Improving on pain control. #. Coagulopathy, likely related to recent surgery. Subjective Date patient seen: Nov 26, 2017 Constitutional: Denies: no symptoms, chills, diaphoresis, fever, malaise, weakness, other HEENT: Denies: no symptoms, eye pain, blurred vision, tearing, double vision, ear pain, ear discharge, nose pain, nose congestion, throat pain, throat swelling, mouth pain, mouth swelling, other Cardiovascular: Denies: no symptoms, chest pain, edema, irregular heart rate, lightheadedness, palpitations, syncope, other Respiratory: Denies: no symptoms, cough, orthopnea, shortness of breath, SOB with excertion, SOB at rest, sputum, stridor, wheezing, other Gastrointestinal/Abdominal: Denies: no symptoms, abdomen distended, abdominal pain, black stools, tarry stools, blood in stool, constipated, diarrhea, difficulty swallowing, nausea, poor appetite, poor fluid intake, rectal bleeding , vomiting, other Genitourinary: Denies: no symptoms, burning, discharge, frequency, flank pain, hematuria, incontinence, pain, urgency, other Allergies: Coded Allergies: No Known Allergies (Unverified , 06/20/14) Subjective Patient feeling better today. On blood thinners, Objective Last 24 Hour Vital Signs Date Time Temp Pulse Resp B/P (MAP) Pulse Ox O2 Delivery O2 Flow Rate FiO2 11/27/17 11:57 97.3 69 20 111/64 99 11/27/17 08:30 98.2 77 20 122/67 99 Intake and Output 11/27/17 11/28/17 19:00 07:00 Intake Total 360 ml Balance 360 ml Intake Oral 360 ml # Bowel Movements 1 Laboratory Tests 11/27/17 08:04: White Blood Count 11.6H, Red Blood Count 3.48L, Hemoglobin 9.8L, Hematocrit 30.5L, Mean Corpuscular Volume 88, Mean Corpuscular Hemoglobin 28.3, Mean Corpuscular Hemoglobin Concent 32.3, Red Cell Distribution Width 13.5, Platelet Count 382, Mean Platelet Volume 6.0L, Neutrophils (%) (Auto) 77.8H, Lymphocytes (%) (Auto) 14.1L, Monocytes (%) (Auto) 7.3, Eosinophils (%) (Auto) 0.4, Basophils (%) (Auto) 0.5, Sodium Level 140, Potassium Level 4.0, Chloride Level 102, Carbon Dioxide Level 33H, Anion Gap 5, Blood Urea Nitrogen 7, Creatinine 0.8, Estimat Glomerular Filtration Rate , Glucose Level 89, Calcium Level 9.1 Height (Feet): 5 Height (Inches): 9.00 Weight (Pounds): 170 General Appearance: agitated Neck: supple Cardiovascular: normal rate Respiratory/Chest: decreased breath sounds Jose Alfredo Benavides Nov 28, 2017 02:16
--- NOTE | 2017-11-28 02:18 | General Progress Note ---
Assessment/Plan Assessment/Plan #. Anemia due to underlying chronic disease. --> Trend cbc daily. --> Blood transfusion has not been required. --> Hemoglobin has been stable >7 #. Venous duplex, eval for DVT. --> On anticoagulation measures, monitor closely. #. 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 --> Has resolved. --> The patient's condition is unchanged over the past four years. --> Review of the patient's prior labs from four years ago appears unchanged. --> Human immunodeficiency virus and hepatitis panel negative. --> We will continue to closely monitor. --> If it is less than 20,000, consider transfusion. #. Small bowel obstruction, status post resection. --> Abdomen xray showing improved bowel distention. #. Abdominal pain due to gangrenous small bowel, status post laparotomy. --> Followup by GI services. --> Improving on pain control. #. Coagulopathy, likely related to recent surgery. Subjective Date patient seen: Nov 27, 2017 Constitutional: Denies: no symptoms, chills, diaphoresis, fever, malaise, weakness, other HEENT: Denies: no symptoms, eye pain, blurred vision, tearing, double vision, ear pain, ear discharge, nose pain, nose congestion, throat pain, throat swelling, mouth pain, mouth swelling, other Cardiovascular: Denies: no symptoms, chest pain, edema, irregular heart rate, lightheadedness, palpitations, syncope, other Respiratory: Denies: no symptoms, cough, orthopnea, shortness of breath, SOB with excertion, SOB at rest, sputum, stridor, wheezing, other Gastrointestinal/Abdominal: Denies: no symptoms, abdomen distended, abdominal pain, black stools, tarry stools, blood in stool, constipated, diarrhea, difficulty swallowing, nausea, poor appetite, poor fluid intake, rectal bleeding , vomiting, other Genitourinary: Denies: no symptoms, burning, discharge, frequency, flank pain, hematuria, incontinence, pain, urgency, other Allergies: Coded Allergies: No Known Allergies (Unverified , 06/20/14) Subjective On anticoagulation. S/P Abd xray. On pain control. Objective Last 24 Hour Vital Signs Date Time Temp Pulse Resp B/P (MAP) Pulse Ox O2 Delivery O2 Flow Rate FiO2 11/27/17 11:57 97.3 69 20 111/64 99 11/27/17 08:30 98.2 77 20 122/67 99 Intake and Output 11/27/17 11/28/17 19:00 07:00 Intake Total 360 ml Balance 360 ml Intake Oral 360 ml # Bowel Movements 1 Laboratory Tests 11/27/17 08:04: White Blood Count 11.6H, Red Blood Count 3.48L, Hemoglobin 9.8L, Hematocrit 30.5L, Mean Corpuscular Volume 88, Mean Corpuscular Hemoglobin 28.3, Mean Corpuscular Hemoglobin Concent 32.3, Red Cell Distribution Width 13.5, Platelet Count 382, Mean Platelet Volume 6.0L, Neutrophils (%) (Auto) 77.8H, Lymphocytes (%) (Auto) 14.1L, Monocytes (%) (Auto) 7.3, Eosinophils (%) (Auto) 0.4, Basophils (%) (Auto) 0.5, Sodium Level 140, Potassium Level 4.0, Chloride Level 102, Carbon Dioxide Level 33H, Anion Gap 5, Blood Urea Nitrogen 7, Creatinine 0.8, Estimat Glomerular Filtration Rate , Glucose Level 89, Calcium Level 9.1 Height (Feet): 5 Height (Inches): 9.00 Weight (Pounds): 170 EENT: normal ENT inspection Neck: supple Cardiovascular: normal rate Respiratory/Chest: lungs clear Edema: trace edema Skin: warm/dry Jose Alfredo Benavides Nov 28, 2017 02:18
--- NOTE | 2017-11-28 16:59 | Cardiology Report ---
APPROVED REPORT EKG Measurement Heart [id number] Normal sinus rhythm Left axis deviation Abnormal ECG
--- NOTE | 2017-11-30 11:39 | Diagnostic Imaging Report ---
APPROVED REPORT CPT Code: 21194 Present Symptoms Comments: Swelling BILATERAL: Imaging reveals a patent deep venous system bilaterally. There is no evidence of thrombus within the femoral, popliteal or tibial segments. The greater saphenous veins are also within normal limits. Doppler indicates normal spontaneous flow within these segments.
--- NOTE | 2017-12-01 08:35 | Discharge Summary ---
Discharge Summary Hospital Course Date of Admission Nov 17, 2017 at 17:56 Date of Discharge Nov 27, 2017 at 15:45 Admitting Diagnosis ABDOMINAL PAIN HPI Angelita Brock is a 77 year old female who was admitted on Nov 17, 2017 at 17: 56 for Abdominal Pain Hospital Course dc summary #[id number] Discharge Medications Continued Medications: Acetaminophen (Tylenol) 325 Mg Tab 650 MG ORAL Q6H PRN for For Pain, #30 TAB 0 Refills Docusate Sodium* (Colace*) 100 Mg Capsule 100 MG ORAL THREE TIMES A DAY, CAP Ibuprofen* (Motrin*) 600 Mg Tablet 400 MG ORAL Q6H PRN for For Pain, #30 TAB Multivitamins* (Multivitamins*) 1 Each Tablet 1 TAB ORAL DAILY, TAB 0 Refills Discharge Condition Upon Discharge: stable Discharge Disposition Patient was discharged to Home (01) Discharge Diagnoses: Discharge Instructions Discharge Instructions Special Instructions I have been assigned to complete a D/C Summary on this account. I was not involved in the patient management Romina Cedeño NP ([facility]) Dec 01, 2017 08:35
--- NOTE | 2017-12-01 23:01 | Discharge Summary 2 SIG ---
DATE OF ADMISSION: 11/17/2017 DATE OF DISCHARGE: 11/27/2017 REASON FOR ADMISSION: 77 years old female presented to the emergency department with epigastric pain, nausea, and vomiting. She denied hematemesis or bloody stool. The patient reported difficulties with bowel movement. No significant past medical history. Workup in the emergency room revealed stable vital signs. Urinalysis revealed few bacteria, pyuria, +2 leukocyte esterase. No leukocytosis. Platelets 24. Stable renal parameters and electrolytes. Stable LFT and lipase. CT of the abdomen and pelvis revealed dilated fluid-filled mid and distal small bowels with normal caliber, distal ileum and likely abrupt transition. Findings were suspicious for small bowel obstruction. Less likely these findings may also represent atypical manifestations of ileus or enteritis. NG tube inserted. Abdominal x-ray showed NG-tube in place. The patient was given intravenous H2 erasmo. She declined analgesia. Antibiotic given for possible urinary tract infection.The patient was admitted with diagnosis of abdominal pain, small bowel obstruction, possible urinary tract infection. HOSPITAL COURSE: The patient was admitted. Surgery consult was requested. The patient was NPO, on the IV fluids. NG-tube was connected to low intermittent suction. The patient was followed up with daily KUB in hope that small bowel obstruction will resolve with conservative measures and to avoid surgery. However, the patient was getting progressively worse symptomatically without showing any improvement. Subsequently, the patient undergone diagnostic laparoscopy with laparoscopic resection of small bowels with extracorporeal anastomosis and abdominal washout. The patient found to have ischemia, gangrene, and perforation of small bowel. After surgery, the patient continue to be initially NPO. The patient was on antibiotics, and NG tube was connected to low intermittent suction. Intake and output were closely monitored. Pain management was addressed and controlled. The patient was followed up with KUBs. When bowel function returned, NG tube was discontinued, drain was discontinued. Postoperative wound care provided. The patient was slowly started on diet. Antiemetics provided as needed. The patient was working with physical and occupational therapists. The patient was able to tolerate diet. Bowel regimen instituted. The patient had a bowel movement prior to discharge. The patient was able to ambulate, pain controlled, afebrile, hemodynamically stable. Abdominal soft, much less distended. The patient to follow up with the surgeon as advised by surgeon., as outpatient. Gastrointestinal specialist followed the patient as well. The patient intiailly with evidence of dehydration and abdominal pain, secondary to small bowel obstruction. Dehydration resolved with IV fluid. Postoperative pain was controlled. The patient was noted to have a thrombocytopenia. Certified Ophthalmic Medical Technician consulted. According to bus driver/monitor, thrombocytopenia was likely secondary to idiopathic thrombocytopenic purpura and was resolved. Platelets prior to discharge -382. Hepatitis panel negative. HIV panel was negative. Per bus driver/monitor, monitor platelet coutns closely as outpatient and transfuse only if the platelets below 20. Anemia workup was suggestive of anemia of chronic disease. Hemoglobin and hematocrit were closely monitored, no need for transfusion. DVT and GI prophylaxes provided. Venous duplex bilateral lower extremities revealed no evidence of acute DVT. The patient was stable for discharge home and follow up with the surgeon as outpatient. FINAL DIAGNOSES: Include: 1. Small bowel obstruction with ischemia, gangrene, and perforation. 2. Status post diagnostic laparoscopy, laparoscopic small bowel resection with extracorporeal anastomosis and abdominal washout. 3. Thrombocytopenia, likely secondary to idiopathic thrombocytopenic purpura, resolved. 4. Dehydration. 5. Abdominal pain. 6. Anemia of chronic disease. DISCHARGE MEDICATIONS: See medication reconciliation list. DISCHARGE INSTRUCTIONS: The patient discharged home. The patient was given detailed discharge instructions by surgeon, who cleared the patient for shower, but no bathing. The patient to follow up with the surgeon as outpatient. Bakari Causey M.D. I have been assigned to dictate discharge summary on this account and I was not involved in the patient's management. Romina Cedeño (Vanchtein) N.PDarrin DR: SCOTT JOB#: [id number] CC: MAE
== END 2017-11-27 15:45 | disposition home or self-care (01) | DRG 329 ==
LOC: EMR 10:21 → 4E 13:30 → EDBEDREQ 17:18 → OBSVTOIN 17:56 → 4W 21:24 → OBSVTOIN 11-21 10:34 → INTOOBSV 11-21 10:34
PROC: 0DT84ZZ Resection of Small Intestine, Percutaneous Endoscopic Approach (ICD-10-PCS; principal; 2017-11-18 13:00)
PROC: 0DN84ZZ Release Small Intestine, Percutaneous Endoscopic Approach (ICD-10-PCS; principal; 2017-11-18 13:00)
DX: K56.52 Intestinal adhesions [bands] with complete obstruction (principal); K63.1 Perforation of intestine (nontraumatic); D69.3 Immune thrombocytopenic purpura; D68.9 Coagulation defect, unspecified; K55.8 Other vascular disorders of intestine; D63.8 Anemia in other chronic diseases classified elsewhere; E86.0 Dehydration; D64.9 Anemia, unspecified; K76.89 Other specified diseases of liver; K56.7 Ileus, unspecified
CPT/HCPCS: 36415; 43752; 74018; 74176; 76700; 80048; 80053; 81003; 82378; 82607; 82728; 82746; 83540; 83550; 83605; 83690; 83735; 84100; 84439; 84443; 85007; 85025; 85044; 85610; 85730; 86703; 86705; 86709; 86803; 86850; 86900; 86901; 87340; 93005; 93970; 94003; 94150; 96360; 96361; 96374; 99285; J2250; J2405; J2710; J8499